=== PATIENT | female | born 1970 | race African-American/Black ===

== ENCOUNTER → 2017-01-07 | Outpatient (CLI) | payer MEDICARE, BC ==
[2016-02-02 14:10] VITALS: BP 102/65
[~2017-01-07] MED LIST: MIDO2.5T PO
--- NOTE | 2017-01-07 14:49 | RAD ---
Radionuclide parathyroid scan, 01/07/2017: History: Hyperparathyroidism Imaging of the neck was performed following IV injection of 25 mCi of technetium 99m sestamibi. Images were obtained at 30 minutes and 3 hours. No persistent abnormal accumulation of activity is seen in the lower neck to suggest a parathyroid adenoma. IMPRESSION: Negative radionuclide parathyroid scan.
== END | disposition home or self-care (01) ==
LOC: NM 09:14
PROVIDERS: ATTEND Internal Medicine Nephrology
DX: E21.2 Other hyperparathyroidism (principal)
CPT/HCPCS: 78070; 96374; A9500

== ENCOUNTER → 2018-03-10 | Outpatient (CLI) | payer MEDICARE, BC ==
[2016-02-02 14:10] VITALS: BP 102/65
--- NOTE | 2018-03-10 16:05 | RAD ---
Nuclear Medicine Parathyroid Scan: History: Hyperparathyroidism. Technique: 22 mCi Tc-99m sestamibi was administered intravenously and spot views were obtained on a gamma camera with early and delayed imaging. Comparison: 01/07/2017 Findings: There is expected physiologic uptake in the salivary glands and thyroid. There is normal washout of the thyroid. There is no abnormal extrathyroid activity seen. Impression: No evidence of abnormal radiotracer uptake to suggest parathyroid adenoma. Electronically signed by: Milton Blue MD (03/10/2018 4:02 PM) [id number]
== END | disposition home or self-care (01) ==
LOC: NM 10:59
PROVIDERS: ATTEND Surgery
DX: E21.3 Hyperparathyroidism, unspecified (principal)
CPT/HCPCS: 78070; 96374; A9500

== ENCOUNTER 2018-07-19 10:40 | Inpatient (IN) | payer MEDICARE ==
--- NOTE | 2018-07-18 19:45 | PDOC1 ---
History and Physical Date of Admission Date of Admission 07/19/2018 Identification/Chief Complaint Chief Complaint right lower extremity weakness Source Source: Chart review History of Present Illness History of Present Illness This 48-year-old woman injured her right knee when she slipped on the ice on . She is not sure how the leg twisted or the injury mechanism but she had immediate pain and weakness. She was seen at the emergency room at [place], and diagnosed with quadriceps tendon rupture. She has been in a knee immobilizer. She cannot extend the leg. Her significant medical history involves dialysis, end-stage renal disease of unknown etiology. She does not have diabetes. She had 2 years of dialysis starting in 2008, and underwent a kidney transplant in 2010, had rejection, and restarted dialysis in 2014. She dialyzes on Tuesdays, , and Saturdays. Past Medical History Cardiovascular: No pertinent hx Pulmonary: No pertinent hx GI: No pertinent hx Heme/Onc: Other Hepatobiliary: No pertinent hx Psych: No pertinent hx Rheumatologic: No pertinent hx Infectious disease: No pertinent hx Renal/: Chronic renal failure, Other Endocrine: No pertinent hx, Hyperparathyroidism Past Surgical History Past Surgical History: Other (renal transplant) Family History Family History: Hypertension Social History ALCOHOL: none Drugs: None Current Medications Current Medications Current Medications Prochlorperazine Edisylate (Compazine) 5 mg PACU PRN PRN IV NAUSEA, MRX1; Start 07/19/18 at 07:00; Stop 07/20/18 at 06:59 Hydromorphone HCl (Dilaudid) 0.5 mg PRN Q10MIN PRN IV SEV PAIN, Second choice; Start 07/19/18 at 07:00; Stop 07/20/18 at 06:59 Lidocaine HCl (Xylocaine-Mpf 1% 2ml Vial) 2 ml PRN 1X PRN ID IV START; Start at 07:00; Stop 07/20/18 at 06:59 Ringer's Solution 1,000 ml @ 30 mls/hr Q24H IV ; Start 07/19/18 at 07:00; Stop 07/19/18 at 18:59 Morphine Sulfate (Morphine Sulfate) 1 mg PRN Q10MIN PRN IV SEVERE PAIN; Start 07/19/18 at 07:00; Stop 07/20/18 at 06:59 Fentanyl Citrate (Fentanyl 2ml Vial) 50 mcg PRN Q5MIN PRN IV MODERATE TO SEVERE PAIN; Start 07/19/18 at 07:00; Stop 07/20/18 at 06:59 Fentanyl Citrate (Fentanyl 2ml Vial) 25 mcg PRN Q5MIN PRN IV MILD PAIN; Start 07/19/18 at 07:00; Stop 07/20/18 at 06:59 Ondansetron HCl (Zofran) 4 mg PRN Q6HRS PRN IV NAUSEA/VOMITING; Start 07/19/18 at 07:00; Stop 07/20/18 at 06:59 Cefazolin Sodium/ Dextrose 50 ml @ 100 mls/hr 1X PREOP PRN IV PRIOR TO PROCEDURE; Start 07/19/18 at 06:00; Stop 07/19/18 at 18:00 Active Scripts Active [Calcium Acetate] 667 MG Capsule 1,334 Mg PO TIDWMEALS 30 Days Reported Robina-Shea Rx Tablet (Vit B Cmplx 3/Fa/Vit C/Biotin) 1 Each Tablet 1 Each PO DAILY Vitamin D (Cholecalciferol (Vitamin D3)) 1,000 Unit Capsule 1 Cap PO DAILY Sensipar (Cinacalcet Hcl) 30 Mg Tablet 1 Tab PO DAILY [binders] Allergies Allergies: Coded Allergies: No Known Drug Allergies (Unverified , 07/18/18) Physical Exam General: Alert, Cooperative HEENT: Atraumatic Lungs: Normal air movement Heart: RRR Abdomen: Soft Extremities: No clubbing, No cyanosis, No edema, Normal pulses, Other (The right knee shows normal gross alignment, slight swelling at the distal quadriceps. Passive range of motion is present but active extension is absent. Light touch sensation intact. Stable to varus and valgus stress. She can actively flex the knee. Sensation and pulses intact. ) Skin: No rashes, No breakdown, No significant lesion Neuro: Normal speech, Sensation intact Psych/Mental Status: Mental status NL, Mood NL Images Images Report reviewed, images independently reviewed right lower extremity CT scan [facility] 07/13/[address] [address] IMAGING REPORT Signed PATIENT: MARIANN LONG ACCOUNT: [id number] : 1970 LOCATION: ER AGE: 48 SEX: F EXAM STATUS: REG ER ORD. PHYSICIAN: HIMA WALKER MD REASON: fall, abnormal x-ray PROCEDURE: CT LOWER EXTREMITY WO RIGHT CT study of the right knee without contrast Clinical indications: Right knee pain status post fall this a.m. Abnormal x-ray. COMPARISON: Radiographic study performed today. TECHNIQUE: Noncontrast helical CT scanning of the right knee was performed. Multiplanar 2-D reconstructions were generated. PQRS compliance Statement One or more of the following individualized dose reduction techniques were utilized for this study: 1. Automated exposure control 2. Adjustment of the mA and/or kV according to patient size 3. Use of iterative reconstruction technique FINDINGS: There is soft tissue thickening around the distal quadriceps tendon at the attachment to the superior pole of the patella. Calcifications are seen here within the distal quadriceps tendon. This may represent chronic calcific tendinitis of the quadriceps tendon. No avulsion fracture or adjacent superior pole patellar defect is evident. The tendon appears discontinuous at the attachment to the superior pole of the patella with an approximate gap of 9 mm. Portion of the tendon appears partially retracted. This is consistent with a full-thickness tear of the quadriceps tendon to the superior pole of the patella. The patellar tendon appears intact. No acute fracture is evident otherwise. No lytic process is seen. There is a small knee joint effusion. No radiopaque loose body is evident. No distended Waldrop's cyst is seen. IMPRESSION: No acute fracture. CT findings are highly suggestive of a full-thickness tear of the quadriceps tendon insertion to the superior pole of the patella with calcific quadriceps tendinitis. This may be confirmed with MRI imaging if clinically needed. Electronically signed by: Guillermina Conti MD (07/13/2018 12:28 PM) [id number] DICTATED AND SIGNED BY: GUILLERMINA CONTI MD DATE: 07/13/18 1213 CC: RAQUEL CRUZ MD; HIMA WALKER MD. VTE Prophylaxis Ordered VTE Prophylaxis Devices: Yes VTE Pharmacological Prophylaxi: Yes Assessment/Plan Assessment/Plan She has a high-grade quadriceps tendon rupture. I recommended surgical repair. We discussed the potential risks of re-tear, weakness, infection, blood clots, or other potential surgical or anesthetic complications. Her dialysis makes re- tear, or infection more likely and we discussed this. Despite the increased surgical risks, I do recommend repair, as nonoperative treatment would give permanent severe weakness. I may augment her repair with additional swivel locks into the tibia. REGAN ESPINOZA MD Jul 18, 2018 19:45
[2018-07-19] VITALS (7 sets, daily range): BP systolic 94–107; BP diastolic 60–81
[~2018-07-19] VITALS: Ht 175.3 cm; Wt 66.7 kg
[~2018-07-19 10:40] MED LIST changes: +BUPIVACAINE-EPI 0.25%-1:200000 MPF 30 ML VIAL. ONE; +CHOL100013 PO; +CINA30TA2 PO; +Calcium Acetate PO; +HYDROmorphone 2 MG/ML VIAL IV PRN; +IV RINGERS,LACTATED 1000ML 1,000 ML IV SCH; +LIDOCAINE 1% PF 2 ML VIAL. ID PRN; +ONDANSETRON PF 4 MG/2 ML VIAL. IV PRN; +VIT1TABL71 PO; +[UNRECOGNIZED DRUG - OTHER]; +fentaNYL PF VIAL 100 MCG/2 ML VIAL IV PRN
[2018-07-19] MEDS ORDERED: ONDANSETRON PF 4 MG/2 ML VIAL. ONE (11:41)
[2018-07-19] MEDS ORDERED: FAMOTIDINE 20 MG/2 ML VIAL ONE (11:41)
[2018-07-19] MEDS ORDERED: PROPOFOL 20 ML IV ONE (11:41)
[2018-07-19] MEDS ORDERED: LIDOCAINE 2% PF 5 ML VIAL. ONE (11:41)
[2018-07-19] MEDS ORDERED: DEXAMETHASONE SOD PHOS 20 MG/5 ML VIAL. ONE (11:41)
[2018-07-19] MEDS ORDERED: MIDAZOLAM HCL/PF 2 MG/2 ML VIAL. ONE (11:42)
[2018-07-19] MEDS ORDERED: fentaNYL PF VIAL 100 MCG/2 ML VIAL ONE (11:42)
[2018-07-19] MEDS ORDERED: IV NORMAL SALINE 1000ML BAG 1,000 ML IV SCH (11:45)
[2018-07-19 12:09] LABS: PREG TEST PT QUAL NEGATIVE (NEG)
[2018-07-19] MEDS ORDERED: fentaNYL PF VIAL 100 MCG/2 ML VIAL IV PRN (12:30)
[2018-07-19] MEDS ORDERED: ACETAMINOPHEN 325 MG TABLET. PO ONE (12:30)
[2018-07-19] MEDS ORDERED: GLYCOPYRROLATE 1 MG/5 ML VIAL. ONE (13:03)
[2018-07-19] MEDS ORDERED: SEVOFLURANE 31 TO 60 MINUTES. IH ONE (14:04)
[2018-07-19] MEDS ORDERED: MORPHINE SULFATE 4 MG/ML VIAL. ONE (14:22)
[2018-07-19] MEDS: PROCHLORPERAZINE 10 MG/2 ML VIAL. IV PRN ×2 (14:26→14:41)
--- NOTE | 2018-07-19 14:27 | PDOC4 ---
Operative Note Operative Note Date of Procedure: July 19, 2018 Pre-Op Diagnosis: Rupture of right quadriceps tendon, initial encounter - S76.111A Post-Op Diagnosis: same Procedure: right lower extremity suture of quadriceps muscle/tendon rupture primary, CPT 93275 Surgeon: Regan David MD Anesthesia: general EBL: 50 mL Specimens Obtained: none Complications: none Drains: none Tourniquet time: 18 minutes Tourniquet pressure: 300 mm Hg Findings: full thickness quadriceps tendon rupture with minimal retinacular tear Indications for Procedure: The patient is a 48 year old with knee injury and right quadriceps tendon rupture. The diagnosis was made clinically. I recommended suture repair of the quadriceps tendon. The patient and I discussed the potential risks of surgery such as repeat tear, stiffness, bleeding, infection, scarring, blood clots, or other potential surgical or anesthetic complications. All of the patients questions about surgery were answered and they desired to proceed. I discussed increased risk of surgical complications due to her dialysis and underlying renal failure but recommend surgery despite increased risks. Procedure in Detail: The patient was identified in the preoperative holding area. The correct right lower extremity was marked by me. The patient was taken to the operating room where there patient was anesthetized by the department of anesthesia. The patient was positioned supine on the operating table. A tourniquet was placed on the upper right thigh. Preoperative antibiotics were given intravenously. A timeout procedure was performed. The limb was prepared in sterile fashion with surgical prep solution. Sterile drapes were applied. An Esmarch bandage was used to exsanguinate the limb. The tourniquet was inflated. A midline skin incision was used. Sharp dissection was used and Bovie electrocautery was used as needed for hemostasis. The quadriceps tendon rupture was noted but only minimally retracted. Irrigation was used to clear hematoma from the knee joint. The superior pole of the patella was prepared with a rongeurs and curette, back to cancellous bone, for eventual secure bone repair with bone marrow elements. Two #5 FiberWire sutures were used, each in a Krakw fashion in the distal quadriceps tendon. One suture was placed medially with 2 tails, and one was placed laterally with 2 tails. The center most tail of each of the pair of sutures is placed in the midline of the quadriceps tendon. Three corresponding drill holes were then made in the patella at the previously prepared superior pole of the patella, within a few millimeters of the articular surface to prevent overload of the patellofemoral joint. As each drill bit was placed bicortically through the patella, the tip of the drill bit was localized near the distal pole using electrocautery. I placed a Hewson suture passer through each bone tunnel from distal to proximal through the patella for passing of the sutures from proximal to distal. All three bone tunnels were used, with the most medial suture tail through the medial drill tunnel, the most lateral suture tail through the most lateral drill tunnel, and the central pair of tails through the central bone tunnel. Irrigation was used to clear any bony fragments created by the drilling. I then held the patella reduced to the quadriceps tendon, and I tied the sutures. This allowed a secure tendon to bone repair of the distal quadriceps to the superior pole of the patella using #5 FiberWire tied around patella bone bridges. The retinaculum was also noted to be torn only for about 1 cm in each direction, and was repaired in a running fashion medially, and laterally, using #1 PDS suture. Secure repair was obtained. Preoperatively had considered augmenting the repair with additional #5 FiberWire and swivel lock anchors in the tibia, but due to the excellent primary repair and minimal extension into the retinaculum, I decided against the augmentation. Copious irrigation was used a final time. The tourniquet was released. Bovie electrocautery was used for hemostasis. 0.25% Marcaine with epinephrine was injected for hemostasis and pain relief. The subcutaneous tissue was closed with 2-0 PDS. [place] were placed in the skin. Needle and sponge counts were correct. There were no apparent complications. A sterile dressing and a knee immobilizer were placed. REGAN DAVID MD Jul 19, 2018 14:27
[2018-07-19] MEDS: fentaNYL PF VIAL 100 MCG/2 ML VIAL IV PRN ×5 (14:29→18:11)
[2018-07-19] MEDS: MORPHINE SULFATE 2 MG/ML VIAL. IV PRN ×3 (14:31→15:30)
[2018-07-19] MEDS ORDERED: IV 1/2 NORMAL SALINE 1,000 ML IV SCH (14:31)
[2018-07-19] MEDS ORDERED: DEXTROSE 50% 25 GM / 50ML DISP.SYRIN. IV PRN (14:45)
[2018-07-19] MEDS ORDERED: POLYETHYLENE GLYCOL 3350 17 GM PACKET. PO PRN (14:45)
[2018-07-19] MEDS ORDERED: MORPHINE SULFATE 4 MG/ML VIAL. IV PRN (14:45)
[2018-07-19] MEDS ORDERED: ONDANSETRON PF 4 MG/2 ML VIAL. IV PRN (14:45)
[2018-07-19] MEDS ORDERED: HYDROcodone/APAP 7.5/325MG 1 TAB TABLET PO PRN (14:45)
[2018-07-19] MEDS: HYDROcodone/APAP 7.5/325MG 1 TAB TABLET PO PRN ×2 (18:44→23:50)
[2018-07-19 20:07] LABS: CREATININE 6.8 mg/dL (0.6-1.0); GFR 7.8; POTASSIUM 4.2 mmol/L (3.5-5.1)
--- NOTE | 2018-07-19 23:30 | NUR ---
Assisted to [facility]. Transferred w/o difficulty-mostly just a pivot. Sleeps w/ loud snoring.
[2018-07-20 03:00] VITALS: BP 98/60
[2018-07-20] MEDS: oxyCODONE/APAP 5/325 1 TAB TABLET PO PRN ×3 (03:19→10:39)
[2018-07-20] MEDS ORDERED: MAGNESIUM HYDROXIDE 2,400 MG/30 ML ORAL.SUSP. PO PRN (06:00)
[2018-07-20 06:46] VITALS: BP 107/70
[2018-07-20] MEDS: SENNOSIDES/DOCUSATE 8.6/50MG TABLET. PO SCH (07:18)
[2018-07-20] MEDS: MORPHINE SULFATE 4 MG/ML VIAL. IV PRN ×2 (08:44→15:47)
[2018-07-20] MEDS: CHOLECALCIFEROL (VITAMIN D3) 1,000 UNIT TABLET PO SCH (08:45)
[2018-07-20] MEDS: CALCIUM ACETATE 667 MG CAPSULE PO SCH ×3 (08:45→16:58)
[2018-07-20] MEDS: CINACALCET HCL 30 MG TABLET PO SCH (08:45)
[2018-07-20] MEDS: FOLIC/VIT B COMP W-C (RENAL) TABLET. PO SCH (08:45)
[2018-07-20] MEDS: ASPIRIN 325 MG TABLET PO SCH (08:46)
[2018-07-20] MEDS ORDERED: ONDANSETRON ODT 4 MG TAB.RAPDIS. PO PRN (09:00)
[2018-07-20] MEDS: oxyCODONE IR 5 MG TABLET PO PRN (10:39)
--- NOTE | 2018-07-20 14:40 | NUR ---
Yamile is doing well. transfers self from bed to commode and ambulated to bathroom. still having problems with pain control. medicated with Percocet/Ana every 3-4 hrs with breakthrough morphine.
--- NOTE | 2018-07-20 14:58 | PDOC ---
PROGRESS NOTES Subjective Subjective Satisfactory pain control. Not yet independent in PT. Brace on order. Objective Vital Signs Vital Signs Date Time Temp Pulse Resp B/P (MAP) Pulse Ox O2 Delivery O2 Flow Rate FiO2 07/20/18 11:30 20 Room Air 07/20/18 06:46 98.3 71 107/70 (82) 97 98.3 07/19/18 14:43 10 Physical Exam Dressing dry. Calf soft and nontender. Good AROM of ankle. Labs Laboratory Tests Test 07/19/18 11:32 07/19/18 19:55 Serum Test, Qualitative Negative (NEG) Sodium Level 137 mmol/L (136-145) Potassium Level 4.2 mmol/L (3.5-5.1) Chloride Level 99 mmol/L (98-107) Carbon Dioxide Level 26 mmol/L (21-32) Anion Gap 12 (6-14) Blood Urea Nitrogen 27 mg/dL (7-20) Creatinine 6.8 mg/dL (0.6-1.0) Estimated GFR (Cockcroft-Gault) 7.8 Glucose Level 164 mg/dL (70-99) Calcium Level 9.0 mg/dL (8.5-10.1) Laboratory Tests Test 07/19/18 19:55 Sodium Level 137 mmol/L (136-145) Potassium Level 4.2 mmol/L (3.5-5.1) Chloride Level 99 mmol/L (98-107) Carbon Dioxide Level 26 mmol/L (21-32) Anion Gap 12 (6-14) Blood Urea Nitrogen 27 mg/dL (7-20) Creatinine 6.8 mg/dL (0.6-1.0) Estimated GFR (Cockcroft-Gault) 7.8 Glucose Level 164 mg/dL (70-99) Calcium Level 9.0 mg/dL (8.5-10.1) Assessment Assessment POD 1 after quad tendon repair Plan Plan of Care Continue PT, may WBAT with brace locked in full extension. Aspirin daily for DVT prophylaxis. Home tomorrow after dialysis if she has the brace and is mobile on walker or crutches. REGAN ESPINOZA MD Jul 20, 2018 14:58
[2018-07-20] MEDS ORDERED: BISACODYL 10 MG SUPP.RECT. PR PRN (16:00)
[2018-07-20 17:13] VITALS: BP 107/60
[2018-07-20] MEDS: fentaNYL PF VIAL 100 MCG/2 ML VIAL IV PRN (20:34)
[2018-07-21] MEDS: oxyCODONE/APAP 5/325 1 TAB TABLET PO PRN ×4 (01:18→12:19)
[2018-07-21 06:13] VITALS: BP 99/62
[2018-07-21 06:29] VITALS: BP 113/59
--- NOTE | 2018-07-21 06:30 | NUR ---
Correct VS charted in the 0629 column. Has loud snore when sleeping. Anticipates hemodialysis today then dismissal. Able to ambulate self w/ walker w/o difficulty.
[2018-07-21] MEDS: oxyCODONE IR 5 MG TABLET PO PRN (07:00)
[2018-07-21] MEDS ORDERED: IV NORMAL SALINE 1000ML BAG 1,000 ML IV PRN ×2 (07:17)
[2018-07-21] MEDS ORDERED: ACETAMINOPHEN 500 MG TABLET PO PRN (07:30)
[2018-07-21] MEDS ORDERED: ALBUMIN HUMAN 25% 200 ML IV PRN (07:30)
[2018-07-21] MEDS ORDERED: DIALYSIS PATIENT. MC PRN (07:30)
[2018-07-21] MEDS ORDERED: 0.9 % SODIUM CHLORIDE 10 ML DISP.SYRIN. IV PRN ×2 (07:30)
[2018-07-21] MEDS ORDERED: diphenhydrAMINE 50 MG/ML VIAL IV PRN ×2 (07:30)
[2018-07-21] MEDS: CALCIUM ACETATE 667 MG CAPSULE PO SCH ×2 (08:00→11:38)
--- NOTE | 2018-07-21 09:03 | NUR ---
Family member brought in walker from home. placed in room
--- NOTE | 2018-07-21 11:21 | PDOC2 ---
CONSULT Date of Consult Date of Consult DATE: 07/21/18 TIME: 11:15 Reason for Consult Reason for Consult: ESRD Referring Physician Referring Physician: OLGA Identification/Chief Complaint Chief Complaint RLE PAIN AFTER FALL Source Source: Chart review, Patient History of Present Illness Reason for Visit: THIS IS A VERY PLEASANT 48 YR OLD ESRD PT DUE TO HTN. SHE HAS OP HD ON TTS. SHE IS VERY COMPLIANT. SHE SLIPPED AND FELL IN THE ICE AND SUSTAINED A RIGHT QUADRICEPS TENDON RUPTURE. SHE HAS SINCE UNDERGONE REPAIR. LABS ARE C/W HER ESRD STATUS. SHE IS DUE TO FOR HD TODAY Past Medical History Cardiovascular: No pertinent hx Pulmonary: No pertinent hx GI: No pertinent hx Heme/Onc: Other Hepatobiliary: No pertinent hx Psych: No pertinent hx Rheumatologic: No pertinent hx Infectious disease: No pertinent hx Renal/: Chronic renal failure, Other Endocrine: No pertinent hx, Hyperparathyroidism Past Surgical History Past Surgical History: Other (renal transplant) Family History Family History: Hypertension Social History ALCOHOL: none Drugs: None Current Medications Current Medications Current Medications Prochlorperazine Edisylate (Compazine) 5 mg PACU PRN PRN IV NAUSEA, MRX1 Last administered on 07/19/18at 14:41; Start 07/19/18 at 07:00; Stop 07/20/18 at 06:59 ; Status DC Hydromorphone HCl (Dilaudid) 0.5 mg PRN Q10MIN PRN IV SEV PAIN, Second choice; Start 07/19/18 at 07:00; Stop 07/20/18 at 06:59; Status DC Lidocaine HCl (Xylocaine-Mpf 1% 2ml Vial) 2 ml PRN 1X PRN ID IV START; Start at 07:00; Stop 07/20/18 at 06:59; Status DC Ringer's Solution 1,000 ml @ 30 mls/hr Q24H IV ; Start 07/19/18 at 07:00; Stop 07/19/18 at 18:59; Status DC Morphine Sulfate (Morphine Sulfate) 1 mg PRN Q10MIN PRN IV SEVERE PAIN Last administered on 07/19/18at 15:30; Start 07/19/18 at 07:00; Stop 07/20/18 at 06:59 ; Status DC Fentanyl Citrate (Fentanyl 2ml Vial) 50 mcg PRN Q5MIN PRN IV MODERATE TO SEVERE PAIN Last administered on 07/19/18at 15:32; Start 07/19/18 at 07:00; Stop 07/20/18 at 06:59; Status DC Fentanyl Citrate (Fentanyl 2ml Vial) 25 mcg PRN Q5MIN PRN IV MILD PAIN; Start 07/19/18 at 07:00; Stop 07/20/18 at 06:59; Status DC Ondansetron HCl (Zofran) 4 mg PRN Q6HRS PRN IV NAUSEA/VOMITING; Start 07/19/18 at 07:00; Stop 07/20/18 at 06:59; Status DC Cefazolin Sodium/ Dextrose 50 ml @ 100 mls/hr 1X PREOP PRN IV PRIOR TO PROCEDURE Last administered on 07/19/18at 13:20; Start 07/19/18 at 06:00; Stop at 18:00; Status DC Bupivacaine HCl/ Epinephrine Bitart (Sensorcaine-Epi 0.25%-1:403260 Mpf) 30 ml STK-MED ONCE .ROUTE Last administered on 07/19/18at 13:56; Start 07/19/18 at 08: 36; Stop 07/19/18 at 08:37; Status DC Sodium Chloride 1,000 ml @ 0 mls/hr Q0M IV Last administered on 07/19/18at 11: 45; Start 07/19/18 at 11:45; Stop 07/20/18 at 01:24; Status DC Propofol 20 ml @ As Directed STK-MED ONCE IV ; Start 07/19/18 at 11:41; Stop at 11:42; Status DC Dexamethasone Sodium Phosphate (Decadron) 20 mg STK-MED ONCE .ROUTE ; Start at 11:41; Stop 07/19/18 at 11:42; Status DC Famotidine (Pepcid Vial) 20 mg STK-MED ONCE .ROUTE ; Start 07/19/18 at 11:41; Stop 07/19/18 at 11:42; Status DC Lidocaine HCl (Lidocaine Pf 2% Vial) 5 ml STK-MED ONCE .ROUTE ; Start 07/19/18 at 11:41; Stop 07/19/18 at 11:42; Status DC Ondansetron HCl (Zofran) 4 mg STK-MED ONCE .ROUTE ; Start 07/19/18 at 11:41; Stop 07/19/18 at 11:42; Status DC Fentanyl Citrate (Fentanyl 2ml Vial) 100 mcg STK-MED ONCE .ROUTE ; Start at 11:42; Stop 07/19/18 at 11:43; Status DC Midazolam HCl (Versed) 2 mg STK-MED ONCE .ROUTE ; Start 07/19/18 at 11:42; Stop 07/19/18 at 11:43; Status DC Acetaminophen (Tylenol) 650 mg 1X ONCE PO Last administered on 07/19/18at 12:37 ; Start 07/19/18 at 12:30; Stop 07/19/18 at 12:36; Status DC Fentanyl Citrate (Fentanyl 2ml Vial) 25 mcg PRN Q30MIN PRN IV MODERATE PAIN Last administered on 07/19/18at 12:40; Start 07/19/18 at 12:30; Stop 07/20/18 at 14:03; Status DC Ephedrine Sulfate (Akovaz) 50 mg STK-MED ONCE .ROUTE ; Start 07/19/18 at 13:01; Stop 07/19/18 at 13:02; Status DC Glycopyrrolate (Robinul) 1 mg STK-MED ONCE .ROUTE ; Start 07/19/18 at 13:03; Stop 07/19/18 at 13:04; Status DC Sevoflurane (Ultane) 30 ml STK-MED ONCE IH ; Start 07/19/18 at 14:04; Stop 07/19 at 14:05; Status DC Morphine Sulfate (Morphine Sulfate) 4 mg STK-MED ONCE .ROUTE ; Start 07/19/18 at 14:22; Stop 07/19/18 at 14:23; Status DC Oxycodone HCl (Roxicodone) 5 mg PRN Q3HRS PRN PO PAIN Last administered on 07/21at 07:00; Start 07/19/18 at 14:45 Morphine Sulfate (Morphine Sulfate) 2 mg PRN Q1HR PRN IV PAIN Last administered on 07/19/18at 19:23; Start 07/19/18 at 14:45 Fentanyl Citrate (Fentanyl 2ml Vial) 25 mcg PRN Q1HR PRN IV PAIN Last administered on 07/20/18at 20:34; Start 07/19/18 at 14:45 Senna/Docusate Sodium (Senna Plus) 1 tab DAILY PO ; Start 07/20/18 at 09:00 Polyethylene Glycol (miraLAX PACKET) 17 gm PRN DAILY PRN PO CONSTIPATION; Start 07/19/18 at 14:45 Sodium Chloride 1,000 ml @ 30 mls/hr Q24H IV ; Start 07/19/18 at 14:31; Stop at 01:24; Status DC Ondansetron HCl (Zofran) 4 mg PRN Q4HRS PRN IV NAUSEA/VOMITING; Start 07/19/18 at 14:45 Aspirin (Abdirahman Aspirin) 325 mg DAILYWBKFT PO Last administered on 07/20/18at 08: 46; Start 07/20/18 at 08:00 Magnesium Hydroxide (Milk Of Magnesia) 2,400 mg 1X PRN PRN PO CONSTIPATION; Start 07/20/18 at 06:00; Stop 07/21/18 at 05:59; Status DC Bisacodyl (Dulcolax Supp) 10 mg 1X PRN PRN SD CONSTIPATION; Start 07/20/18 at 16:00; Stop 07/21/18 at 15:59 Acetaminophen/ Hydrocodone Bitart (Lortab 7.5/325) 1 tab PRN Q4HRS PRN PO PAIN ; Start 07/19/18 at 14:45 Morphine Sulfate (Morphine Sulfate) 4 mg PRN Q2HR PRN IV PAIN Last administered on 07/20/18at 15:47; Start 07/19/18 at 14:45 Acetaminophen/ Hydrocodone Bitart (Lortab 7.5/325) 2 tab PRN Q4HRS PRN PO PAIN Last administered on 07/19/18at 23:50; Start 07/19/18 at 14:45 Dextrose (Dextrose 50%-Water Syringe) 12.5 gm PRN Q15MIN PRN IV SEE COMMENTS; Start 07/19/18 at 14:45 Oxycodone/ Acetaminophen (Percocet 5/325) 1 tab PRN Q4HRS PRN PO SEVERE PAIN Last administered on 07/21/18at 09:10; Start 07/19/18 at 14:45 Cinacalcet (Sensipar) 30 mg DAILY PO Last administered on 07/20/18at 08:45; Start 07/20/18 at 09:00 Vitamin D (Vitamin D3) 1,000 unit DAILY PO Last administered on 07/20/18at 08:45 ; Start 07/20/18 at 09:00 Vitamin B Complex/ Vitamin C (Robina-Shea) 1 tab DAILY PO Last administered on at 08:45; Start 07/20/18 at 09:00 Calcium Acetate (Phoslo) 1,334 mg TIDWMEALS PO Last administered on 07/20/18at 16:58; Start 07/20/18 at 08:00 Ondansetron HCl (Zofran Odt) 4 mg PRN Q6HRS PRN PO NAUSEA/VOMITING Last administered on 07/20/18at 09:26; Start 07/20/18 at 09:00 Sodium Chloride 1,000 ml @ 1,000 mls/hr Q1H PRN IV hypotension; Start 07/21/18 at 07:17; Stop 07/21/18 at 13:16 Albumin Human 200 ml @ 200 mls/hr 1X PRN PRN IV Hypotension; Start 07/21/18 at 07:30; Stop 07/21/18 at 13:29 Acetaminophen (Tylenol) 500 mg 1X PRN PRN PO MILD PAIN / TEMP; Start 07/21/18 at 07:30; Stop 07/22/18 at 07:29 Diphenhydramine HCl (Benadryl) 25 mg 1X PRN PRN IV ITCHING; Start 07/21/18 at 07:30; Stop 07/22/18 at 07:29 Diphenhydramine HCl (Benadryl) 25 mg 1X PRN PRN IV ITCHING; Start 07/21/18 at 07:30; Stop 07/22/18 at 07:29 Sodium Chloride (Normal Saline Flush) 10 ml 1X PRN PRN IV AP catheter pack; Start 07/21/18 at 07:30; Stop 07/22/18 at 07:29 Sodium Chloride (Normal Saline Flush) 10 ml 1X PRN PRN IV INTERNIST catheter pack; Start 07/21/18 at 07:30; Stop 07/22/18 at 07:29 Sodium Chloride 1,000 ml @ 400 mls/hr Q2H30M PRN IV PATENCY; Start 07/21/18 at 07:17; Stop 07/21/18 at 19:16 Info (PHARMACY MONITORING -- do not chart) 1 each PRN DAILY PRN MC SEE COMMENTS ; Start 07/21/18 at 07:30 Active Scripts Active [Calcium Acetate] 667 MG Capsule 1,334 Mg PO TIDWMEALS 30 Days Reported Robina-Shea Rx Tablet (Vit B Cmplx 3/Fa/Vit C/Biotin) 1 Each Tablet 1 Each PO DAILY Vitamin D (Cholecalciferol (Vitamin D3)) 1,000 Unit Capsule 1 Cap PO DAILY Sensipar (Cinacalcet Hcl) 30 Mg Tablet 1 Tab PO DAILY Allergies Allergies: Coded Allergies: No Known Drug Allergies (Unverified , 07/19/18) ROS Review of System FULL ROS NEG EXCEPT FOR HER RLE PAIN Physical Exam General: Alert, Oriented X3, Cooperative, No acute distress HEENT: Atraumatic, PERRLA, Mucous membr. moist/pink Lungs: Clear to auscultation, Normal air movement Heart: Regular rate, Normal S1, Normal S2 Abdomen: Normal bowel sounds, Soft, No tenderness Extremities: No clubbing Skin: No breakdown Neuro: Normal speech, Sensation intact Psych/Mental Status: Mental status NL, Mood NL MUSCULOSKELETAL: No joint tenderness, No deformity, No swelling Vitals VITALS Vital Signs Date Time Temp Pulse Resp B/P (MAP) Pulse Ox O2 Delivery O2 Flow Rate FiO2 07/21/18 07:56 Room Air 07/21/18 06:29 98.0 70 20 113/59 (77) 96 98.0 Labs Labs Laboratory Tests Test 07/19/18 11:32 07/19/18 19:55 Serum Test, Qualitative Negative (NEG) Sodium Level 137 mmol/L (136-145) Potassium Level 4.2 mmol/L (3.5-5.1) Chloride Level 99 mmol/L (98-107) Carbon Dioxide Level 26 mmol/L (21-32) Anion Gap 12 (6-14) Blood Urea Nitrogen 27 mg/dL (7-20) Creatinine 6.8 mg/dL (0.6-1.0) Estimated GFR (Cockcroft-Gault) 7.8 Glucose Level 164 mg/dL (70-99) Calcium Level 9.0 mg/dL (8.5-10.1) Assessment/Plan Assessment/Plan IMP ESRD ANEMIA HTN R QUAD TENDON TEAR PLAN HD TODAY UF TO DW THERAPY-S/P TENDON REPAIR MARLON HAMLIN MD Jul 21, 2018 11:21
[2018-07-21 11:33] VITALS: BP 94/63
[2018-07-21] MEDS: CHOLECALCIFEROL (VITAMIN D3) 1,000 UNIT TABLET PO SCH (11:38)
[2018-07-21] MEDS: SENNOSIDES/DOCUSATE 8.6/50MG TABLET. PO SCH (11:38)
[2018-07-21] MEDS: FOLIC/VIT B COMP W-C (RENAL) TABLET. PO SCH (11:38)
[2018-07-21] MEDS: CINACALCET HCL 30 MG TABLET PO SCH (11:38)
[2018-07-21] MEDS: ASPIRIN 325 MG TABLET PO SCH (11:38)
--- NOTE | 2018-07-21 12:13 | PDOC ---
PROGRESS NOTES Subjective Subjective dialysis complete. some knee pain. would like to do one more PT session before discharge Objective Vital Signs Vital Signs Date Time Temp Pulse Resp B/P (MAP) Pulse Ox O2 Delivery O2 Flow Rate FiO2 07/21/18 11:33 98.0 63 16 94/63 (73) Room Air 98.0 07/21/18 06:29 96 07/19/18 14:43 10 Physical Exam Knee immobilizer intact. Dressing dry. calf soft NT. Labs Laboratory Tests Test 07/19/18 19:55 Sodium Level 137 mmol/L (136-145) Potassium Level 4.2 mmol/L (3.5-5.1) Chloride Level 99 mmol/L (98-107) Carbon Dioxide Level 26 mmol/L (21-32) Anion Gap 12 (6-14) Blood Urea Nitrogen 27 mg/dL (7-20) Creatinine 6.8 mg/dL (0.6-1.0) Estimated GFR (Cockcroft-Gault) 7.8 Glucose Level 164 mg/dL (70-99) Calcium Level 9.0 mg/dL (8.5-10.1) Assessment Assessment pod 2 after quad tendon repair ESRD Plan Plan of Care Continue knee brace Home today REGAN ESPINOZA MD Jul 21, 2018 12:13
[2018-07-21] MEDS ORDERED: OXYC1TAB22 PO (12:18)
[2018-07-21] MEDS ORDERED: ASPI325T8 PO (12:18)
--- NOTE | 2018-07-21 12:22 | PDOC3 ---
Discharge Summary Visit Information Date of Admission: Jul 19, 2018 Date of Discharge: Jul 21, 2018 Admitting Diagnosis: quad tendon strain right Final Diagnosis Problems Medical Problems: (1) Strain of right quadriceps muscle, fascia and tendon, initial encounter Status: Acute Brief Hospital Course Allergies Allergies Coded Allergies Type Severity Reaction Last Updated Verified No Known Drug Allergies 07/19/18 No Vital Signs Vital Signs Date Time Temp Pulse Resp B/P (MAP) Pulse Ox O2 Delivery O2 Flow Rate FiO2 07/21/18 11:33 98.0 63 16 94/63 (73) Room Air 98.0 07/21/18 06:29 96 07/19/18 14:43 10 Lab Results Laboratory Tests Test 07/19/18 19:55 Sodium Level 137 mmol/L (136-145) Potassium Level 4.2 mmol/L (3.5-5.1) Chloride Level 99 mmol/L (98-107) Carbon Dioxide Level 26 mmol/L (21-32) Anion Gap 12 (6-14) Blood Urea Nitrogen 27 mg/dL (7-20) Creatinine 6.8 mg/dL (0.6-1.0) Estimated GFR (Cockcroft-Gault) 7.8 Glucose Level 164 mg/dL (70-99) Calcium Level 9.0 mg/dL (8.5-10.1) Brief Hospital Course 48 year old admitted for quad tendon rupture. Surgery the day of admission under [place]. Has ESRD and did dialysis on POD 2. Perioperative antibiotics, DVT prophylaxis and physical therapy. Stable for discharge. Discharge Information Condition at Discharge: Stable Follow Up: Weeks Disposition/Orders: D/C to Home Scheduled Aspirin (Aspirin), 325 MG PO DAILY Cholecalciferol (Vitamin D3) (Vitamin D), 1 CAP PO DAILY, (Reported) Cinacalcet Hcl (Sensipar), 1 TAB PO DAILY, (Reported) Vit B Cmplx 3/Fa/Vit C/Biotin (Robina-Shea Rx Tablet), 1 EACH PO DAILY, (Reported) [Calcium Acetate], 1,334 MG PO TIDWMEALS Scheduled PRN Oxycodone/Apap 10-325 (Percocet 10-325 Mg Tablet ), 1-2 TAB PO PRN Q4HRS PRN for PAIN Patient Instructions Patient Instructions Patient Instructions Continue to WBAT with walker. Keep dressing dry and intact. Continue DVT prophylaxis with aspirin for 30 days. REGAN ESPINOZA MD Jul 21, 2018 12:22
--- NOTE | 2018-07-21 13:11 | NUR ---
Discharge information given to both pt/family member, see instruction sheet for details, copy of [facility] pamphlet given along with ice pack for home use
--- NOTE | 2018-07-21 15:30 | NUR ---
Discharged to w/c accompanied by family member, belongings taken with her.
[2018-07-29] MEDS ORDERED: LEVO500T59 PO (10:23)
[2018-07-29] MEDS ORDERED: TRAM50TA PO (10:23)
== END 2018-07-21 15:32 | disposition home or self-care (01) | DRG 500 ==
LOC: SURG 10:40 → 4 SOUTHEST 15:29
PROVIDERS: ADMIT Orthopaedic Surgery; ATTEND Orthopaedic Surgery
PROC: 0LQL0ZZ Repair Right Upper Leg Tendon, Open Approach (ICD-10-PCS; principal; 2018-07-19 11:30)
PROC: 5A1D70Z Performance of Urinary Filtration, Intermittent, Less than 6 Hours Per Day (ICD-10-PCS; 2018-07-21)
DX: S76.111A Strain of right quadriceps muscle, fascia and tendon, initial encounter (principal); N18.6 End stage renal disease; Z94.0 Kidney transplant status; I12.0 Hypertensive chronic kidney disease with stage 5 chronic kidney disease or end stage renal disease; D64.9 Anemia, unspecified; W00.2XXA Other fall from one level to another due to ice and snow, initial encounter; Z99.2 Dependence on renal dialysis; Y93.89 Activity, other specified; Y92.89 Other specified places as the place of occurrence of the external cause; Y99.8 Other external cause status; Z82.49 Family history of ischemic heart disease and other diseases of the circulatory system
CPT/HCPCS: 36415; 80048; 84703; A7015; J0696; J0780; J1100; J2001; J2250; J2270; J2405; J2704; J3010; J3490; Q0162; 97116; 97150; 97530

== ENCOUNTER 2018-07-27 15:57 | Inpatient (IN) | payer MEDICARE ==
[~2018-07-27] VITALS: Ht 175.3 cm; Wt 69.2 kg
[~2018-07-27 15:57] MED LIST changes: +ASPI325T8 PO; -BUPIVACAINE-EPI 0.25%-1:200000 MPF 30 ML VIAL. ONE; -HYDROmorphone 2 MG/ML VIAL IV PRN; -IV RINGERS,LACTATED 1000ML 1,000 ML IV SCH; -LIDOCAINE 1% PF 2 ML VIAL. ID PRN; -ONDANSETRON PF 4 MG/2 ML VIAL. IV PRN; +OXYC1TAB22 PO; -fentaNYL PF VIAL 100 MCG/2 ML VIAL IV PRN
--- NOTE | 2018-07-27 16:42 | PHYS DOC ---
Past Medical History Past Medical History: Anxiety, Hypertension, Renal Failure, Other Additional Past Medical Histor: PERITONEAL DIALYSIS until 2017 currently Hemodialysis on , , Wed Past Surgical History: Other Additional Past Surgical Histo: Peritoneal dialysis catheter, right chest hemodialysis catheter Alcohol Use: None Drug Use: None Adult General Chief Complaint Chief Complaint: POST-OP PROBLEM HPI HPI Patient is a 48 year old AA female who presents to the ER with complaints of increased swelling and warmth to right leg, shortness of breath, and rapid heart beat x2 days. She states she had a torn ligament in her R knee repaired here by Dr. David on 07/19/18. She went to her PCP Dr. Cruz earlier today who sent her to the ER. Pt denies any body aches, chills, or cough. She reports that she feels fatigued all over. Currently, she rates the pain in her right knee a 5/10, the pain increases with movement or palpation. She has been taking the pain medication as prescribed and states it has helped with the pain. Pt states she has been ambulatory at home with a walker. Review of Systems Review of Systems Constitutional: Denies fever or chills [] Eyes: Denies change in visual acuity, redness, or eye pain [] HENT: Denies nasal congestion or sore throat [] Respiratory: Denies cough , see HPI Cardiovascular: No additional information not addressed in HPI [] GI: Denies abdominal pain, nausea, vomiting, or diarrhea [] : reports dialysis patient last HD was yesterday Musculoskeletal: See HPI Integument: See HPI Neurologic: Denies headache, focal weakness or sensory changes [] Complete systems were reviewed and found to be within normal limits, except as documented in this note. Current Medications Current Medications Current Medications Medications (Trade) Dose Ordered Sig/Tacos Start Time Stop Time Status Last Admin Dose Admin Heparin Sodium (Porcine) (Heparin Sodium) 1,150 unit PRN Q6HRS PRN 07/27/18 19:15 07/27/18 22:12 DC Heparin Sodium/ Dextrose 500 ml @ 24.6 mls/hr CONT PRN 07/27/18 19:15 07/27/18 22:12 DC 07/27/18 19:43 24.6 MLS/HR Morphine Sulfate (Morphine Sulfate) 4 mg 1X ONCE 07/27/18 18:45 07/27/18 21:05 DC Ondansetron HCl (Zofran) 4 mg 1X ONCE 07/27/18 18:45 07/27/18 18:46 DC 07/27/18 18:46 4 MG Allergies Allergies Allergies Coded Allergies Type Severity Reaction Last Updated Verified No Known Drug Allergies 07/19/18 No Physical Exam Physical Exam Constitutional: Well developed, well nourished, no acute distress, non-toxic appearance. [] HENT: Normocephalic, atraumatic, bilateral external ears normal, nose normal. [ ] Eyes: conjunctiva normal, no discharge. [] Neck: Normal range of motion, no stridor. [] Cardiovascular:Heart rate tachycardic rhythm, no murmur [] Lungs & Thorax: Bilateral breath sounds clear to auscultation [] Skin: Warm, dry, no erythema, no rash; surgical incision with dressing intact noted to right knee, mild erythema and warm to touch, no purulent drainage noted. [] Extremities: No cyanosis, no clubbing; limited ROM of R knee due to post-op status, 2+ edema noted to RLE, pedal pulses 2+ RLE, cap refill < 2 seconds Neurologic: Alert and oriented X 3, normal motor function, normal sensory function, no focal deficits noted. [] Psychologic: Affect normal, judgement normal, mood normal. [] Current Patient Data Vital Signs Vital Signs Date Time Temp Pulse Resp B/P (MAP) Pulse Ox O2 Delivery O2 Flow Rate FiO2 07/27/18 19:15 114 20 115/76 (89) 97 Room Air 07/27/18 18:51 98.8 98.8 Lab Values Laboratory Tests Test 07/27/18 16:55 White Blood Count 8.4 x10^3/uL (4.0-11.0) Red Blood Count 3.05 x10^6/uL (3.50-5.40) L Hemoglobin 9.5 g/dL (12.0-15.5) L Hematocrit 29.6 % (36.0-47.0) L Mean Corpuscular Volume 97 fL (79-100) Mean Corpuscular Hemoglobin 31 pg (25-35) Mean Corpuscular Hemoglobin Concent 32 g/dL (31-37) Red Cell Distribution Width 16.0 % (11.5-14.5) H Platelet Count 259 x10^3/uL (140-400) Neutrophils (%) (Auto) 71 % (31-73) Lymphocytes (%) (Auto) 14 % (24-48) L Monocytes (%) (Auto) 9 % (0-9) Eosinophils (%) (Auto) 6 % (0-3) H Basophils (%) (Auto) 1 % (0-3) Neutrophils # (Auto) 5.9 x10^3uL (1.8-7.7) Lymphocytes # (Auto) 1.2 x10^3/uL (1.0-4.8) Monocytes # (Auto) 0.7 x10^3/uL (0.0-1.1) Eosinophils # (Auto) 0.5 x10^3/uL (0.0-0.7) Basophils # (Auto) 0.1 x10^3/uL (0.0-0.2) Prothrombin Time 15.2 SEC (11.7-14.0) H Prothrombin Time INR 1.2 (0.8-1.1) H D-Dimer (Darya) 5.04 ug/mlFEU (0.00-0.50) H Sodium Level 134 mmol/L (136-145) L Potassium Level 4.8 mmol/L (3.5-5.1) Chloride Level 94 mmol/L (98-107) L Carbon Dioxide Level 25 mmol/L (21-32) Anion Gap 15 (6-14) H Blood Urea Nitrogen 70 mg/dL (7-20) H Creatinine 12.1 mg/dL (0.6-1.0) H Estimated GFR (Cockcroft-Gault) 4.0 BUN/Creatinine Ratio 6 (6-20) Glucose Level 101 mg/dL (70-99) H Lactic Acid Level 1.5 mmol/L (0.4-2.0) Calcium Level 8.9 mg/dL (8.5-10.1) Total Bilirubin 0.4 mg/dL (0.2-1.0) Aspartate Amino Transferase (AST) 21 U/L (15-37) Alanine Aminotransferase (ALT) 9 U/L (14-59) L Alkaline Phosphatase 364 U/L (46-116) H Troponin I Quantitative < 0.017 ng/mL (0.000-0.055) Total Protein 8.5 g/dL (6.4-8.2) H Albumin 2.8 g/dL (3.4-5.0) L Albumin/Globulin Ratio 0.5 (1.0-1.7) L Serum Test, Qualitative Negative (NEG) Laboratory Tests 07/27/18 16:55 Laboratory Tests 07/27/18 16:55 EKG EKG 1619- sinus tach rate 121, NO STEMI, read by Dr. Grey at 1621 Radiology/Procedures Radiology/Procedures PROCEDURE: PORTABLE CHEST 1V EXAM: Chest, single view. HISTORY: Shortness of air. COMPARISON: 04/03/2009. FINDINGS: There is linear atelectasis or scarring within the right mid thorax. There is bilateral basilar atelectasis or interstitial infiltrate with suspected small pleural effusions. There is a prominent cardiac silhouette. There is a dialysis catheter with the tip in the superior right atrium. There is no pneumothorax. There is a left upper stent. IMPRESSION: 1. Bilateral lower lobe atelectasis or interstitial infiltrate with suspected small pleural effusions. 2. Suspected linear atelectasis or scarring within the right mid thorax. 3. Prominent cardiac silhouette, a component of which is due to portable technique. [] PROCEDURE: VENOUS LOWER EXTREMITY RIGHT Right lower extremity venous ultrasound, 07/27/2018 : History: Right leg pain and swelling Duplex evaluation including grayscale, color flow and spectral Doppler analysis was performed. The femoral and popliteal veins show no filling defects to suggest DVT. The visualized deep veins in the right calf are unremarkable. IMPRESSION: There is no sonographic evidence of deep vein thrombosis in the right lower extremity PROCEDURE: LUNG VENT/PERFUSION SCAN(VQ) Ventilation perfusion exam History: Shortness of breath for 2 days, recent knee surgery Comparison: Chest radiograph the same day Findings: Ventilation perfusion examination was performed. Ventilation images were acquired after the patient inhaled 18 mCi of xenon-133 gas. Perfusion images were acquired after the patient was injected with 5 mCi of technetium 99m MAA. No mismatched perfusion defect is identified. Impression: 1. There is low probability for pulmonary embolic disease. Course & Med Decision Making Course & Med Decision Making Pertinent Labs and Imaging studies reviewed. (See chart for details) Dx: tachycardia, shortness of breath 1927- Ordered heparin bolus and drip for suspected PE, d-dimer was 5.04. CXR concerning for infiltrate and atelectasis, however, pt denies cough, fever, or cold sx. Elevated D-dimer need to rule out PE. Admitted to [facility] by Dr. Thornton, notified Dr. Jackson that VQ scan is pending and orders. [] Dragon Disclaimer Dragon Disclaimer This electronic medical record was generated, in whole or in part, using a voice recognition dictation system. Departure Departure Impression: Primary Impression: Tachycardia Additional Impression: Shortness of breath Disposition: ADMITTED INPATIENT Admitting Physician: Other (rafael) Condition: STABLE Referrals: RAQUEL CRUZ MD (PCP) Problem Qualifiers BO ESPINOZA APRN Jul 27, 2018 16:42
--- NOTE | 2018-07-27 16:56 | RAD ---
Right lower extremity venous ultrasound, 07/27/2018 : History: Right leg pain and swelling Duplex evaluation including grayscale, color flow and spectral Doppler analysis was performed. The femoral and popliteal veins show no filling defects to suggest DVT. The visualized deep veins in the right calf are unremarkable. IMPRESSION: There is no sonographic evidence of deep vein thrombosis in the right lower extremity Electronically signed by: Ruel Martinez MD (07/27/2018 4:53 PM) [facility]
--- NOTE | 2018-07-27 16:59 | RAD ---
EXAM: Chest, single view. HISTORY: Shortness of air. COMPARISON: 04/03/2009. FINDINGS: There is linear atelectasis or scarring within the right mid thorax. There is bilateral basilar atelectasis or interstitial infiltrate with suspected small pleural effusions. There is a prominent cardiac silhouette. There is a dialysis catheter with the tip in the superior right atrium. There is no pneumothorax. There is a left upper stent. IMPRESSION: 1. Bilateral lower lobe atelectasis or interstitial infiltrate with suspected small pleural effusions. 2. Suspected linear atelectasis or scarring within the right mid thorax. 3. Prominent cardiac silhouette, a component of which is due to portable technique. Electronically signed by: Vivian Craig MD (07/27/2018 4:56 PM) [email or web address]
[2018-07-27 17:14] LABS: BASO # 0.1 x10^3/uL (0.0-0.2); BASO % 1 % (0-3); EOS # 0.5 x10^3/uL (0.0-0.7); EOS % 6 % (0-3); HEMATOCRIT 29.6 % (36.0-47.0); HEMOGLOBIN 9.5 g/dL (12.0-15.5); LYMPH # 1.2 x10^3/uL (1.0-4.8); LYMPH % 14 % (24-48); MEAN CORPUSCULAR HEMOGLOBIN 31 pg (25-35); MEAN CORPUSCULAR HGB CONC 32 g/dL (31-37); MEAN CORPUSCULAR VOLUME 97 fL (79-100); MONO # 0.7 x10^3/uL (0.0-1.1); MONO % 9 % (0-9); NEUT # 5.9 x10^3uL (1.8-7.7); NEUT % 71 % (31-73); PLATELET COUNT 259 x10^3/uL (140-400); RED BLOOD COUNT 3.05 x10^6/uL (3.50-5.40); WHITE BLOOD COUNT 8.4 x10^3/uL (4.0-11.0)
[2018-07-27 17:21] LABS: CALCIUM 8.9 mg/dL (8.5-10.1); CREATININE 12.1 mg/dL (0.6-1.0); POTASSIUM 4.8 mmol/L (3.5-5.1)
[2018-07-27 17:27] LABS: ALBUMIN 2.8 g/dL (3.4-5.0); ALBUMIN/GLOBULIN RATIO 0.5 (1.0-1.7); TOTAL BILIRUBIN 0.4 mg/dL (0.2-1.0); TOTAL PROTEIN 8.5 g/dL (6.4-8.2)
[2018-07-27 17:31] LABS: PREG TEST PT QUAL NEGATIVE (NEG)
[2018-07-27 17:51] LABS: PROTHROMBIN TIME PATIENT 15.2 SEC (11.7-14.0)
[2018-07-27] MEDS ORDERED: MORPHINE SULFATE 4 MG/ML VIAL. IV ONE ×2 (18:15→18:45)
[2018-07-27 18:37] LABS: D-DIMER 5.04 ug/mlFEU (0.00-0.50)
[2018-07-27] MEDS ORDERED: ONDANSETRON PF 4 MG/2 ML VIAL. IV ONE (18:45)
[2018-07-27] MEDS ORDERED: HEPARIN for IV BOLUS 10,000 UNIT/10 ML VIAL. IV ONE (19:15)
[2018-07-27] MEDS ORDERED: HEPARIN for IV BOLUS 10,000 UNIT/10 ML VIAL. IV PRN ×2 (19:15)
[2018-07-27] MEDS ORDERED: HEPARIN 25,000UTS/500ML PREMIX 500 ML IV PRN (19:15)
[2018-07-27 20:57] VITALS: BP 118/77
--- NOTE | 2018-07-27 21:06 | PDOC1 ---
History and Physical Date of Admission Date of Admission DATE: 07/27/18 TIME: 21:05 Identification/Chief Complaint Chief Complaint Shortness of breath Source Source: Chart review, Patient History of Present Illness History of Present Illness Ms Desai is a 48 year old AA female w/ PMHx ESRD (previously failed renal transplant 2010, then on PD in 2016, now on HD with 4 failed grafts in bilateral UE) who presents to ED with complaints of increased swelling and warmth to right leg, shortness of breath, and rapid heart beat x2 days. She also notes left axillary chest pain and tightness on deep inspiration. She states she had a torn ligament in her R knee repaired here by Dr. David on . She went to her PCP Dr. Sinha earlier today who sent her to the ER. Pt denies any body aches, chills, or cough. She reports that she feels fatigued all over. Currently, she rates the pain in her right knee a 5/10, the pain increases with movement or palpation. She has been taking the pain medication as prescribed and states it has helped with the pain. Pt states she has been ambulatory at home with a walker. She also denies any fever. She is very pleasant. Does not smoke, drink or use recreational drugs. No recent sick contacts, regularly follows up with Dr. Mary from nephrology. She was started on heparin GTT for presumptive PE, unable to do CTPA due to no good IV access and hospital protocol prohibiting use of her dialysis catheter, so underwent VQ scan which was low probability with no mismatch Past Medical History Cardiovascular: No pertinent hx Pulmonary: No pertinent hx GI: No pertinent hx Heme/Onc: Other Hepatobiliary: No pertinent hx Psych: No pertinent hx Rheumatologic: No pertinent hx Infectious disease: No pertinent hx Renal/: Chronic renal failure, Other Endocrine: No pertinent hx, Hyperparathyroidism Past Surgical History Past Surgical History: Other Family History Family History: Hypertension Social History ALCOHOL: none Drugs: None Current Medications Current Medications Current Medications Morphine Sulfate (Morphine Sulfate) 4 mg 1X ONCE IV Last administered on at 18:46; Start 07/27/18 at 18:15; Stop 07/27/18 at 18:17; Status DC Morphine Sulfate (Morphine Sulfate) 4 mg 1X ONCE IV ; Start 07/27/18 at 18:45; Stop 07/27/18 at 18:46; Status DC Ondansetron HCl (Zofran) 4 mg 1X ONCE IV Last administered on 07/27/18at 18:46; Start 07/27/18 at 18:45; Stop 07/27/18 at 18:46; Status DC Heparin Sodium (Porcine) (Heparin Sodium) 6,200 unit 1X ONCE IV Last administered on 07/27/18at 19:44; Start 07/27/18 at 19:15; Stop 07/27/18 at 19:20; Status DC Heparin Sodium/ Dextrose 500 ml @ 24.6 mls/hr CONT PRN IV SEE I/O RECORD Last administered on 07/27/18at 19:43; Start 07/27/18 at 19:15 Heparin Sodium (Porcine) (Heparin Sodium) 2,300 unit PRN Q6HRS PRN IV FOR UFH LEVEL LESS THAN 0.2; Start 07/27/18 at 19:15 Heparin Sodium (Porcine) (Heparin Sodium) 1,150 unit PRN Q6HRS PRN IV FOR UFH LEVEL 0.2 - 0.29; Start 07/27/18 at 19:15 Active Scripts Active Percocet 10-325 Mg Tablet (Oxycodone/Acetaminophen) 1 Each Tablet 1-2 Tab PO PRN Q4HRS PRN 14 Days Aspirin 325 Mg Tablet 325 Mg PO DAILY MDD 325 mg Take on aspirin 325 mg daily for 30 days [Calcium Acetate] 667 MG Capsule 1,334 Mg PO TIDWMEALS 30 Days Reported [facility] Rx Tablet (Vit B Cmplx 3/Fa/Vit C/Biotin) 1 Each Tablet 1 Each PO DAILY Vitamin D (Cholecalciferol (Vitamin D3)) 1,000 Unit Capsule 1 Cap PO DAILY Sensipar (Cinacalcet Hcl) 30 Mg Tablet 1 Tab PO DAILY Allergies Allergies: Coded Allergies: No Known Drug Allergies (Unverified , 07/19/18) ROS General: YES: Fatigue, Malaise; No: Chills, Night Sweats, Appetite, Other PSYCHOLOGICAL ROS: YES: Anxiety; No: Behavioral Disorder, Concentration difficultie, Decreased libido, Depression, Disorientation, Hallucinations, Hostility, Irritablity, Memory difficulties, Mood Swings, Obsessive thoughts, Physical abuse, Sexual abuse, Sleep disturbances, Suicidal ideation, Other Eyes: No Blurry vision, No Decreased vision, No Double vision, No Dry eyes, No Excessive tearing, No Eye Pain, No Itchy Eyes, No Loss of vision, No Photophobia , No Scotomata, No Uses contacts, No Uses glasses, No Other HEENT: No: Heacaches, Visual Changes, Hearing change, Nasal congestion, Nasal discharge, Oral lesions, Sinus pain, Sore Throat, Epistaxis, Sneezing, Snoring, Tinnitus, Vertigo, Vocal changes, Other ALLERGY AND IMMUNOLOGY: No: Hives, Insect Bite Sensitivity, Itchy/Watery Eyes, Nasal Congestion, Post Nasal Drip, Seasonal Allergies, Other Hematological and Lymphatic: No: Bleeding Problems, Blood Clots, Blood Transfusions, Brusing, Night Sweats, Pallor, Swollen Lymph Nodes, Other ENDOCRINE: No: Breast Changes, Galactorrhea, Hair Pattern Changes, Hot Flashes , Malaise/lethargy, Mood Swings, Palpitations, Polydipsia/polyuria, Skin Changes , Temperature Intolerance, Unexpected Weight Changes, Other Breast: No New/Changing Breast Lumps, No Nipple changes, No Nipple discharge, No Other Respiratory: YES: Cough, Pleuritic Pain, Shortness of breath, Tachypnea; No: Hemoptysis, Orthopnea, SOB with excertion, Sputum Changes, Stridor, Wheezing, Other Cardiovascular: yes Chest Pain; No Palpitations, No Orthopnea, No Paroxysmal Noc. Dyspnea, No Edema, No Lt Headedness, No Other Gastrointestinal: No Nausea, No Vomiting, No Abdominal Pain, No Diarrhea, No Constipation, No Melena, No Hematochezia, No Other Genitourinary: No Dysuria, No Frequency, No Incontinence, No Hematuria, No Retention, No Discharge, No Urgency, No Pain, No Flank Pain, No Other, No , No , No , No , No , No , No Musculoskeletal: Yes Gait Disturbance; No Joint Pain, No Joint Stiffness, No Joint Swelling, No Muscle Pain, No Muscular Weakness, No Pain In:, No Swelling In:, No Other Neurological: No Behavorial Changes, No Bowel/Bladder ControlChng, No Confusion , No Dizziness, No Gait Disturbance, No Headaches, No Impaired Coord/balance, No Memory Loss, No Numbness/Tingling, No Seizures, No Speech Problems, No Tremors, No Visual Changes, No Weakness, No Other Skin: No Dry Skin, No Eczema, No Hair Changes, No Lumps, No Mole Changes, No Mottling, No Nail Changes, No Pruritus, No Rash, No Skin Lesion Changes, No Other, No Acne Physical Exam General: Alert, Oriented X3, Cooperative, No acute distress HEENT: PERRLA Lungs: Other (Bibasilar crackles) Heart: S1S2, RRR, no gallops, no murmurs Abdomen: Normal bowel sounds, Soft, No tenderness, No hepatosplenomegaly, No masses Rectal Exam: not examined Extremities: No clubbing, No cyanosis, No edema, Normal pulses, Other (Right knee swelling, good pulses) Skin: Other (Right chest wall HD catheter clean) Neuro: Normal gait, Normal speech, Strength at 5/5 X4 ext, Normal tone, Sensation intact, Cranial nerves 3-12 NL, Reflexes 2+ Psych/Mental Status: Mental status NL, Mood NL Vitals Vitals Vital Signs Date Time Temp Pulse Resp B/P (MAP) Pulse Ox O2 Delivery O2 Flow Rate FiO2 07/27/18 20:44 112 18 107/63 (78) 94 Room Air 07/27/18 18:51 98.8 98.8 Labs Labs Laboratory Tests Test 07/27/18 16:55 White Blood Count 8.4 x10^3/uL (4.0-11.0) Red Blood Count 3.05 x10^6/uL (3.50-5.40) Hemoglobin 9.5 g/dL (12.0-15.5) Hematocrit 29.6 % (36.0-47.0) Mean Corpuscular Volume 97 fL (79-100) Mean Corpuscular Hemoglobin 31 pg (25-35) Mean Corpuscular Hemoglobin Concent 32 g/dL (31-37) Red Cell Distribution Width 16.0 % (11.5-14.5) Platelet Count 259 x10^3/uL (140-400) Neutrophils (%) (Auto) 71 % (31-73) Lymphocytes (%) (Auto) 14 % (24-48) Monocytes (%) (Auto) 9 % (0-9) Eosinophils (%) (Auto) 6 % (0-3) Basophils (%) (Auto) 1 % (0-3) Neutrophils # (Auto) 5.9 x10^3uL (1.8-7.7) Lymphocytes # (Auto) 1.2 x10^3/uL (1.0-4.8) Monocytes # (Auto) 0.7 x10^3/uL (0.0-1.1) Eosinophils # (Auto) 0.5 x10^3/uL (0.0-0.7) Basophils # (Auto) 0.1 x10^3/uL (0.0-0.2) Prothrombin Time 15.2 SEC (11.7-14.0) Prothromb Time International Ratio 1.2 (0.8-1.1) D-Dimer (Darya) 5.04 ug/mlFEU (0.00-0.50) Sodium Level 134 mmol/L (136-145) Potassium Level 4.8 mmol/L (3.5-5.1) Chloride Level 94 mmol/L (98-107) Carbon Dioxide Level 25 mmol/L (21-32) Anion Gap 15 (6-14) Blood Urea Nitrogen 70 mg/dL (7-20) Creatinine 12.1 mg/dL (0.6-1.0) Estimated GFR (Cockcroft-Gault) 4.0 BUN/Creatinine Ratio 6 (6-20) Glucose Level 101 mg/dL (70-99) Lactic Acid Level 1.5 mmol/L (0.4-2.0) Calcium Level 8.9 mg/dL (8.5-10.1) Total Bilirubin 0.4 mg/dL (0.2-1.0) Aspartate Amino Transf (AST/SGOT) 21 U/L (15-37) Alanine Aminotransferase (ALT/SGPT) 9 U/L (14-59) Alkaline Phosphatase 364 U/L (46-116) Troponin I Quantitative < 0.017 ng/mL (0.000-0.055) Total Protein 8.5 g/dL (6.4-8.2) Albumin 2.8 g/dL (3.4-5.0) Albumin/Globulin Ratio 0.5 (1.0-1.7) Serum Test, Qualitative Negative (NEG) Laboratory Tests Test 07/27/18 16:55 White Blood Count 8.4 x10^3/uL (4.0-11.0) Red Blood Count 3.05 x10^6/uL (3.50-5.40) Hemoglobin 9.5 g/dL (12.0-15.5) Hematocrit 29.6 % (36.0-47.0) Mean Corpuscular Volume 97 fL (79-100) Mean Corpuscular Hemoglobin 31 pg (25-35) Mean Corpuscular Hemoglobin Concent 32 g/dL (31-37) Red Cell Distribution Width 16.0 % (11.5-14.5) Platelet Count 259 x10^3/uL (140-400) Neutrophils (%) (Auto) 71 % (31-73) Lymphocytes (%) (Auto) 14 % (24-48) Monocytes (%) (Auto) 9 % (0-9) Eosinophils (%) (Auto) 6 % (0-3) Basophils (%) (Auto) 1 % (0-3) Neutrophils # (Auto) 5.9 x10^3uL (1.8-7.7) Lymphocytes # (Auto) 1.2 x10^3/uL (1.0-4.8) Monocytes # (Auto) 0.7 x10^3/uL (0.0-1.1) Eosinophils # (Auto) 0.5 x10^3/uL (0.0-0.7) Basophils # (Auto) 0.1 x10^3/uL (0.0-0.2) Prothrombin Time 15.2 SEC (11.7-14.0) Prothromb Time International Ratio 1.2 (0.8-1.1) D-Dimer (Darya) 5.04 ug/mlFEU (0.00-0.50) Sodium Level 134 mmol/L (136-145) Potassium Level 4.8 mmol/L (3.5-5.1) Chloride Level 94 mmol/L (98-107) Carbon Dioxide Level 25 mmol/L (21-32) Anion Gap 15 (6-14) Blood Urea Nitrogen 70 mg/dL (7-20) Creatinine 12.1 mg/dL (0.6-1.0) Estimated GFR (Cockcroft-Gault) 4.0 BUN/Creatinine Ratio 6 (6-20) Glucose Level 101 mg/dL (70-99) Lactic Acid Level 1.5 mmol/L (0.4-2.0) Calcium Level 8.9 mg/dL (8.5-10.1) Total Bilirubin 0.4 mg/dL (0.2-1.0) Aspartate Amino Transf (AST/SGOT) 21 U/L (15-37) Alanine Aminotransferase (ALT/SGPT) 9 U/L (14-59) Alkaline Phosphatase 364 U/L (46-116) Troponin I Quantitative < 0.017 ng/mL (0.000-0.055) Total Protein 8.5 g/dL (6.4-8.2) Albumin 2.8 g/dL (3.4-5.0) Albumin/Globulin Ratio 0.5 (1.0-1.7) Serum Test, Qualitative Negative (NEG) Images Images VQ - There is low probability for pulmonary embolic disease. VTE Prophylaxis Ordered VTE Prophylaxis Devices: Yes VTE Pharmacological Prophylaxi: Yes Assessment/Plan Assessment/Plan A/P: Shortness of breath - low prob VQ, I will stop heparin GTT. Needs IS. will treat for her interstitial pattern on CXR as pneumonia for now, will need to consider pulm consultation Chest pain - this seems pleuritic, will change her pain meds for renal clearance to fentanyl and hydrocodone. D/c oxycodone and morphine orders. Check trop Hyperphosphatemia - states she takes phos binders outpatient regularly, consult nephrology Uremia - BUN 70, she likes needs dialysis tomorrow, consult nephrology ESRD - previously failed renal transplant 2010, then on PD in 2015, now on HD with 4 failed grafts in bilateral UE. Consult nephro H/o renal transplant - failed, not on immunosuppressants any longer Right knee swelling - expected post-op. Will call Dr. David to let him know his patient is in house for an unrelated issue. Cont PT FEN - renal diet PPX - heparin FULL CODE Inpatient for shortness of breath, may need to stay at least 2 midnights to resolve the etiology INDERJIT DURAND MD Jul 27, 2018 21:06
[2018-07-27] MEDS ORDERED: fentaNYL PF VIAL 100 MCG/2 ML VIAL IV PRN (21:15)
--- NOTE | 2018-07-27 21:19 | RAD ---
Ventilation perfusion exam History: Shortness of breath for 2 days, recent knee surgery Comparison: Chest radiograph the same day Findings: Ventilation perfusion examination was performed. Ventilation images were acquired after the patient inhaled 18 mCi of xenon-133 gas. Perfusion images were acquired after the patient was injected with 5 mCi of technetium 99m MAA. No mismatched perfusion defect is identified. Impression: 1. There is low probability for pulmonary embolic disease. Electronically signed by: Peng Cm MD (07/27/2018 9:16 PM) [facility]
[2018-07-27] MEDS: HYDROcodone/APAP 7.5/325MG 1 TAB TABLET PO PRN (21:25)
[2018-07-27] MEDS ORDERED: VANCOMYCIN 1 GM in IV NORMAL SALINE 250ML 250 ML IV ONE (22:30)
[2018-07-27] MEDS ORDERED: VANCOMYCIN 1GM IVPB FOR OMNI 250 ML IV ONE (22:30)
[2018-07-27] MEDS: CEFEPIME HCL IV Push 1 GM VIAL. IVP SCH (22:54)
[2018-07-27 22:55] VITALS: BP 103/73
[2018-07-27] MEDS: VANCOMYCIN PER PHARMACY MC PRN (23:29)
--- NOTE | 2018-07-28 00:01 | NUR ---
Pharmacy Vancomycin Dosing Note S:Consulted to monitor and dose vancomycin started 07/27/18. O:MARIANN LONG is a 48 year old F with Empiric SOB . Height: 5 feet, 9 inches Weight: 71.488758 kg Vincent Body Weight: 66.20 Adjusted Body Weight: 68.20 Dosing Weight: Actual Other Antibiotics: CEFEPIME 1GM IV Q24HRS LABS: Last BUN: 70 Last Creatinine: 12.1 Creatinine Clearance: 6.1 mL/min PERITONEAL DIALYSIS Last WBC: 8.4 Last Procalcitonin: Tmax (past 24 hours): Microbiology: I/O: Drug Levels: Last level: on at Last dose given at Vancomycin Dosing: Loading Dose: Dosing Weight: Actual Target Trough: 15-20 A: Based on: Actual Wt and CrCl P: 1. 07/27/18 225 Vancomycin 1000 mg IV One Time 2. Follow up Random level on 07/29/18 at 2300 3. Pharmacy will continue to monitor, follow and adjust therapy as needed. ASA MARROQUIN RPH, 07/28/18 0001 Signed: 07/28/18 at 0003 by ASA MARROQUIN RPH PHA
[2018-07-28 03:59] VITALS: BP 110/76
[2018-07-28] MEDS: HYDROcodone/APAP 7.5/325MG 1 TAB TABLET PO PRN ×2 (04:08→19:08)
[2018-07-28 04:30] LABS: CREATININE 12.5 mg/dL (0.6-1.0); GFR 3.9
[2018-07-28 04:37] LABS: CHOLESTEROL/HDL RATIO 3.3
--- NOTE | 2018-07-28 06:45 | EKG ---
[facility] [address] [place] [address] Test Date: 2018-07-27 Test Time: 16:19:03 Pat Name: MARIANN LONG Department: Room: 256 1 Gender: F Rn Bone Marrow Transplant: : 1970 Requested By: BO ESPINOZA Order Number: [id number] Reading MD: Zeferino Ovalle MD Measurements Intervals Collins Rate: 121 P: -109 VT: 124 QRS: 16 QRSD: 70 T: 30 QT: 356 QTc: 509 Interpretive Statements SINUS TACHYCARDIA Electronically Signed On 07-28-2018 11:11:55 BARREL CHARRER by Zeferino Ovalle MD
[2018-07-28 07:00] VITALS: BP 108/58
--- NOTE | 2018-07-28 07:35 | PDOC ---
PROGRESS NOTES Chief Complaint Chief Complaint A/P: Shortness of breath - low prob VQ, I will stop heparin GTT. Needs IS. will treat for her interstitial pattern on CXR as pneumonia for now, will need to consider pulm consultation Chest pain - this seems pleuritic, will change her pain meds for renal clearance to fentanyl and hydrocodone. D/c oxycodone and morphine orders. 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 Consult nephro H/o renal transplant - failed, not on immunosuppressants any longer Right knee swelling - expected post-op. Will call Dr. David to let him know his patient is in house for an unrelated issue. Cont PT FEN - renal diet PPX - heparin FULL CODE Inpatient for shortness of breath, may need to stay at least 2 midnights to resolve the etiology History of Present Illness History of Present Illness Ms Desai is a 48 year old AA female w/ PMHx ESRD (previously failed renal transplant 2010, then on PD in 2016, now on HD with 4 failed grafts in bilateral UE) who presents to ED with complaints of increased swelling and warmth to right leg, shortness of breath, and rapid heart beat x2 days. She also noted left axillary chest pain and tightness on deep inspiration. She states she had a torn ligament in her R knee repaired here by Dr. David on . She went to her PCP Dr. Sinha who sent her to the ER. Pt denies any body aches, chills, or cough. She reports that she feels fatigued all over. Currently, she rates the pain in her right knee a 5/10, the pain increases with movement or palpation. She has been taking the pain medication as prescribed and states it has helped with the pain. Pt states she has been ambulatory at home with a walker. She was started on heparin GTT for presumptive PE, unable to do CTPA due to no good IV access and hospital protocol prohibiting use of her dialysis catheter, so underwent VQ scan which was low probability with no mismatch [place] better overnight after starting antibiotics and nebulizers. Knee is stiff, swollen, painful. Still with left chest wall pain and shortness of breath. Seen on dialysis today. Plan: Cont antibiotics. Will try to get a sputum sample. Will consult pulm for HCAP PT to see for her knee Vitals Vitals Vital Signs Date Time Temp Pulse Resp B/P (MAP) Pulse Ox O2 Delivery O2 Flow Rate FiO2 07/28/18 05:08 Room Air 07/28/18 04:08 94 07/28/18 03:59 98.8 94 16 110/76 (87) 98.8 Physical Exam General: Alert, Oriented X3, Cooperative, No acute distress Lungs: Wheezing Abdomen: Normal bowel sounds, Soft, No tenderness, No hepatosplenomegaly, No masses Extremities: No clubbing, No cyanosis, No edema, Normal pulses, Other (Right knee swelling, good pulses) Skin: Other (Right chest wall HD catheter clean) Labs LABS Laboratory Tests Test 07/27/18 16:55 07/28/18 03:05 07/28/18 03:25 White Blood Count 8.4 x10^3/uL (4.0-11.0) Red Blood Count 3.05 x10^6/uL (3.50-5.40) Hemoglobin 9.5 g/dL (12.0-15.5) Hematocrit 29.6 % (36.0-47.0) Mean Corpuscular Volume 97 fL (79-100) Mean Corpuscular Hemoglobin 31 pg (25-35) Mean Corpuscular Hemoglobin Concent 32 g/dL (31-37) Red Cell Distribution Width 16.0 % (11.5-14.5) Platelet Count 259 x10^3/uL (140-400) Neutrophils (%) (Auto) 71 % (31-73) Lymphocytes (%) (Auto) 14 % (24-48) Monocytes (%) (Auto) 9 % (0-9) Eosinophils (%) (Auto) 6 % (0-3) Basophils (%) (Auto) 1 % (0-3) Neutrophils # (Auto) 5.9 x10^3uL (1.8-7.7) Lymphocytes # (Auto) 1.2 x10^3/uL (1.0-4.8) Monocytes # (Auto) 0.7 x10^3/uL (0.0-1.1) Eosinophils # (Auto) 0.5 x10^3/uL (0.0-0.7) Basophils # (Auto) 0.1 x10^3/uL (0.0-0.2) Prothrombin Time 15.2 SEC (11.7-14.0) Prothromb Time International Ratio 1.2 (0.8-1.1) D-Dimer (Darya) 5.04 ug/mlFEU (0.00-0.50) Sodium Level 134 mmol/L (136-145) Potassium Level 4.8 mmol/L (3.5-5.1) Chloride Level 94 mmol/L (98-107) Carbon Dioxide Level 25 mmol/L (21-32) Anion Gap 15 (6-14) Blood Urea Nitrogen 70 mg/dL (7-20) 71 mg/dL (7-20) Creatinine 12.1 mg/dL (0.6-1.0) 12.5 mg/dL (0.6-1.0) Estimated GFR (Cockcroft-Gault) 4.0 3.9 BUN/Creatinine Ratio 6 (6-20) Glucose Level 101 mg/dL (70-99) Lactic Acid Level 1.5 mmol/L (0.4-2.0) Calcium Level 8.9 mg/dL (8.5-10.1) Total Bilirubin 0.4 mg/dL (0.2-1.0) Aspartate Amino Transf (AST/SGOT) 21 U/L (15-37) Alanine Aminotransferase (ALT/SGPT) 9 U/L (14-59) Alkaline Phosphatase 364 U/L (46-116) Troponin I Quantitative < 0.017 ng/mL (0.000-0.055) Total Protein 8.5 g/dL (6.4-8.2) Albumin 2.8 g/dL (3.4-5.0) Albumin/Globulin Ratio 0.5 (1.0-1.7) Serum Test, Qualitative Negative (NEG) Triglycerides Level 98 mg/dL (0-150) Cholesterol Level 119 mg/dL (0-200) LDL Cholesterol, Calculated 63 mg/dL (0-100) VLDL Cholesterol, Calculated 20 mg/dL (0-40) Non-HDL Cholesterol Calculated 83 mg/dL (0-129) HDL Cholesterol 36 mg/dL (40-60) Cholesterol/HDL Ratio 3.3 Procalcitonin 3.09 ng/mL (0.00-0.10) Comment Review of Relevant I have reviewed the following items chioma (where applicable) has been applied. Labs Laboratory Tests Test 07/27/18 16:55 07/28/18 03:05 07/28/18 03:25 White Blood Count 8.4 x10^3/uL (4.0-11.0) Red Blood Count 3.05 x10^6/uL (3.50-5.40) Hemoglobin 9.5 g/dL (12.0-15.5) Hematocrit 29.6 % (36.0-47.0) Mean Corpuscular Volume 97 fL (79-100) Mean Corpuscular Hemoglobin 31 pg (25-35) Mean Corpuscular Hemoglobin Concent 32 g/dL (31-37) Red Cell Distribution Width 16.0 % (11.5-14.5) Platelet Count 259 x10^3/uL (140-400) Neutrophils (%) (Auto) 71 % (31-73) Lymphocytes (%) (Auto) 14 % (24-48) Monocytes (%) (Auto) 9 % (0-9) Eosinophils (%) (Auto) 6 % (0-3) Basophils (%) (Auto) 1 % (0-3) Neutrophils # (Auto) 5.9 x10^3uL (1.8-7.7) Lymphocytes # (Auto) 1.2 x10^3/uL (1.0-4.8) Monocytes # (Auto) 0.7 x10^3/uL (0.0-1.1) Eosinophils # (Auto) 0.5 x10^3/uL (0.0-0.7) Basophils # (Auto) 0.1 x10^3/uL (0.0-0.2) Prothrombin Time 15.2 SEC (11.7-14.0) Prothromb Time International Ratio 1.2 (0.8-1.1) D-Dimer (Darya) 5.04 ug/mlFEU (0.00-0.50) Sodium Level 134 mmol/L (136-145) Potassium Level 4.8 mmol/L (3.5-5.1) Chloride Level 94 mmol/L (98-107) Carbon Dioxide Level 25 mmol/L (21-32) Anion Gap 15 (6-14) Blood Urea Nitrogen 70 mg/dL (7-20) 71 mg/dL (7-20) Creatinine 12.1 mg/dL (0.6-1.0) 12.5 mg/dL (0.6-1.0) Estimated GFR (Cockcroft-Gault) 4.0 3.9 BUN/Creatinine Ratio 6 (6-20) Glucose Level 101 mg/dL (70-99) Lactic Acid Level 1.5 mmol/L (0.4-2.0) Calcium Level 8.9 mg/dL (8.5-10.1) Total Bilirubin 0.4 mg/dL (0.2-1.0) Aspartate Amino Transf (AST/SGOT) 21 U/L (15-37) Alanine Aminotransferase (ALT/SGPT) 9 U/L (14-59) Alkaline Phosphatase 364 U/L (46-116) Troponin I Quantitative < 0.017 ng/mL (0.000-0.055) Total Protein 8.5 g/dL (6.4-8.2) Albumin 2.8 g/dL (3.4-5.0) Albumin/Globulin Ratio 0.5 (1.0-1.7) Serum Test, Qualitative Negative (NEG) Triglycerides Level 98 mg/dL (0-150) Cholesterol Level 119 mg/dL (0-200) LDL Cholesterol, Calculated 63 mg/dL (0-100) VLDL Cholesterol, Calculated 20 mg/dL (0-40) Non-HDL Cholesterol Calculated 83 mg/dL (0-129) HDL Cholesterol 36 mg/dL (40-60) Cholesterol/HDL Ratio 3.3 Procalcitonin 3.09 ng/mL (0.00-0.10) Laboratory Tests Test 07/27/18 16:55 07/28/18 03:05 07/28/18 03:25 White Blood Count 8.4 x10^3/uL (4.0-11.0) Red Blood Count 3.05 x10^6/uL (3.50-5.40) Hemoglobin 9.5 g/dL (12.0-15.5) Hematocrit 29.6 % (36.0-47.0) Mean Corpuscular Volume 97 fL (79-100) Mean Corpuscular Hemoglobin 31 pg (25-35) Mean Corpuscular Hemoglobin Concent 32 g/dL (31-37) Red Cell Distribution Width 16.0 % (11.5-14.5) Platelet Count 259 x10^3/uL (140-400) Neutrophils (%) (Auto) 71 % (31-73) Lymphocytes (%) (Auto) 14 % (24-48) Monocytes (%) (Auto) 9 % (0-9) Eosinophils (%) (Auto) 6 % (0-3) Basophils (%) (Auto) 1 % (0-3) Neutrophils # (Auto) 5.9 x10^3uL (1.8-7.7) Lymphocytes # (Auto) 1.2 x10^3/uL (1.0-4.8) Monocytes # (Auto) 0.7 x10^3/uL (0.0-1.1) Eosinophils # (Auto) 0.5 x10^3/uL (0.0-0.7) Basophils # (Auto) 0.1 x10^3/uL (0.0-0.2) Prothrombin Time 15.2 SEC (11.7-14.0) Prothromb Time International Ratio 1.2 (0.8-1.1) D-Dimer (Darya) 5.04 ug/mlFEU (0.00-0.50) Sodium Level 134 mmol/L (136-145) Potassium Level 4.8 mmol/L (3.5-5.1) Chloride Level 94 mmol/L (98-107) Carbon Dioxide Level 25 mmol/L (21-32) Anion Gap 15 (6-14) Blood Urea Nitrogen 70 mg/dL (7-20) 71 mg/dL (7-20) Creatinine 12.1 mg/dL (0.6-1.0) 12.5 mg/dL (0.6-1.0) Estimated GFR (Cockcroft-Gault) 4.0 3.9 BUN/Creatinine Ratio 6 (6-20) Glucose Level 101 mg/dL (70-99) Lactic Acid Level 1.5 mmol/L (0.4-2.0) Calcium Level 8.9 mg/dL (8.5-10.1) Total Bilirubin 0.4 mg/dL (0.2-1.0) Aspartate Amino Transf (AST/SGOT) 21 U/L (15-37) Alanine Aminotransferase (ALT/SGPT) 9 U/L (14-59) Alkaline Phosphatase 364 U/L (46-116) Troponin I Quantitative < 0.017 ng/mL (0.000-0.055) Total Protein 8.5 g/dL (6.4-8.2) Albumin 2.8 g/dL (3.4-5.0) Albumin/Globulin Ratio 0.5 (1.0-1.7) Serum Test, Qualitative Negative (NEG) Triglycerides Level 98 mg/dL (0-150) Cholesterol Level 119 mg/dL (0-200) LDL Cholesterol, Calculated 63 mg/dL (0-100) VLDL Cholesterol, Calculated 20 mg/dL (0-40) Non-HDL Cholesterol Calculated 83 mg/dL (0-129) HDL Cholesterol 36 mg/dL (40-60) Cholesterol/HDL Ratio 3.3 Procalcitonin 3.09 ng/mL (0.00-0.10) Medications Current Medications Morphine Sulfate (Morphine Sulfate) 4 mg 1X ONCE IV Last administered on at 18:46; Start 07/27/18 at 18:15; Stop 07/27/18 at 21:05; Status DC Morphine Sulfate (Morphine Sulfate) 4 mg 1X ONCE IV ; Start 07/27/18 at 18:45; Stop 07/27/18 at 21:05; Status DC Ondansetron HCl (Zofran) 4 mg 1X ONCE IV Last administered on 07/27/18at 18:46; Start 07/27/18 at 18:45; Stop 07/27/18 at 18:46; Status DC Heparin Sodium (Porcine) (Heparin Sodium) 6,200 unit 1X ONCE IV Last administered on 07/27/18at 19:44; Start 07/27/18 at 19:15; Stop 07/27/18 at 22:12; Status DC Heparin Sodium/ Dextrose 500 ml @ 24.6 mls/hr CONT PRN IV SEE I/O RECORD Last administered on 07/27/18at 19:43; Start 07/27/18 at 19:15; Stop 07/27/18 at 22:12; Status DC Heparin Sodium (Porcine) (Heparin Sodium) 2,300 unit PRN Q6HRS PRN IV FOR UFH LEVEL LESS THAN 0.2; Start 07/27/18 at 19:15; Stop 07/27/18 at 22:12; Status DC Heparin Sodium (Porcine) (Heparin Sodium) 1,150 unit PRN Q6HRS PRN IV FOR UFH LEVEL 0.2 - 0.29; Start 07/27/18 at 19:15; Stop 07/27/18 at 22:12; Status DC Aspirin (Abdirahman Aspirin) 325 mg DAILY PO ; Start 07/28/18 at 09:00 Cinacalcet (Sensipar) 30 mg DAILY PO ; Start 07/28/18 at 09:00 Vitamin D (Vitamin D3) 1,000 unit DAILY PO ; Start 07/28/18 at 09:00 Vitamin B Complex/ Vitamin C (Robina-Shea) 1 tab DAILY PO ; Start 07/28/18 at 09:00 Calcium Acetate (Phoslo) 1,334 mg TIDWMEALS PO ; Start 07/28/18 at 08:00 Fentanyl Citrate (Fentanyl 2ml Vial) 25 mcg PRN Q4HRS PRN IV MODERATE PAIN; Start 07/27/18 at 21:15 Acetaminophen/ Hydrocodone Bitart (Lortab 7.5/325) 1 tab PRN Q6HRS PRN PO MODERATE PAIN Last administered on 07/28/18at 04:08; Start 07/27/18 at 21:15 Cefepime HCl (Maxipime) 1 gm Q24H IVP Last administered on 07/27/18at 22:54; Start 07/27/18 at 22:30 Vancomycin HCl (Vanco Per Pharmacy) 1 each PRN DAILY PRN MC SEE COMMENTS Last administered on 07/27/18at 23:29; Start 07/27/18 at 22:15 Vancomycin HCl 250 ml @ 250 mls/hr 1X ONCE IV ; Start 07/27/18 at 22:30; Stop 07/27/18 at 23:29; Status Cancel Vancomycin HCl 1 gm/Sodium Chloride 250 ml @ 250 mls/hr ONCE ONCE IV Last administered on 07/27/18at 22:54; Start 07/27/18 at 22:30; Stop 07/27/18 at 23:29; Status DC Vancomycin HCl (Vancomycin Random Level) 1 each 1X ONCE MC ; Start 07/29/18 at 23:00; Stop 07/29/18 at 23:01 Active Scripts Active Percocet 10-325 Mg Tablet (Oxycodone/Acetaminophen) 1 Each Tablet 1-2 Tab PO PRN Q4HRS PRN 14 Days Aspirin 325 Mg Tablet 325 Mg PO DAILY MDD 325 mg Take on aspirin 325 mg daily for 30 days [Calcium Acetate] 667 MG Capsule 1,334 Mg PO TIDWMEALS 30 Days Reported Robina-Shea Rx Tablet (Vit B Cmplx 3/Fa/Vit C/Biotin) 1 Each Tablet 1 Each PO DAILY Vitamin D (Cholecalciferol (Vitamin D3)) 1,000 Unit Capsule 1 Cap PO DAILY Sensipar (Cinacalcet Hcl) 30 Mg Tablet 1 Tab PO DAILY Vitals/I & O Vital Sign - Last 24 Hours 07/27/18 07/27/18 07/27/18 07/27/18 16:00 17:58 18:46 18:51 Temp 98.8 98.8 98.8 98.8 Pulse 125 113 112 Resp 20 11 20 17 B/P (MAP) 123/67 (85) 119/72 (88) 125/67 (86) Pulse Ox 95 95 96 95 O2 Delivery Room Air Room Air Room Air 07/27/18 07/27/18 07/27/18 07/27/18 19:15 19:45 20:44 20:45 Pulse 114 112 112 Resp 20 20 18 B/P (MAP) 115/76 (89) 112/65 (81) 107/63 (78) Pulse Ox 97 96 94 O2 Delivery Room Air Room Air Room Air Room Air 07/27/18 07/27/18 07/27/18 07/28/18 20:57 21:25 22:55 03:59 Temp 99.6 99.2 98.8 99.6 99.2 98.8 Pulse 115 108 94 Resp 16 16 16 B/P (MAP) 118/77 (91) 103/73 (83) 110/76 (87) Pulse Ox 92 92 93 94 O2 Delivery Room Air Room Air Room Air Room Air 07/28/18 07/28/18 04:08 05:08 Pulse Ox 94 O2 Delivery Room Air Room Air Intake and Output 07/27/18 07/27/18 07/28/18 14:59 22:59 06:59 Intake Total 296 ml 400 ml Output Total 375 ml Balance 296 ml 25 ml INDERJIT DURAND MD Jul 28, 2018 07:35
[2018-07-28] MEDS ORDERED: IV NORMAL SALINE 1000ML BAG 1,000 ML IV PRN ×2 (07:43)
[2018-07-28] MEDS ORDERED: diphenhydrAMINE 50 MG/ML VIAL IV PRN ×2 (07:45)
[2018-07-28] MEDS ORDERED: ACETAMINOPHEN 500 MG TABLET PO PRN (07:45)
[2018-07-28] MEDS ORDERED: 0.9 % SODIUM CHLORIDE 10 ML DISP.SYRIN. IV PRN ×2 (07:45)
[2018-07-28] MEDS ORDERED: DIALYSIS PATIENT. MC PRN (07:45)
[2018-07-28] MEDS ORDERED: ALBUMIN HUMAN 25% 200 ML IV PRN (07:45)
[2018-07-28] MEDS: CALCIUM ACETATE 667 MG CAPSULE PO SCH ×3 (08:00→17:23)
--- NOTE | 2018-07-28 08:55 | PDOC2 ---
CONSULT Date of Consult Date of Consult DATE: 07/28/18 TIME: 08:51 Reason for Consult Reason for Consult: Recent right knee surgery Referring Physician Referring Physician: Hillary Identification/Chief Complaint Chief Complaint "I feel crummy" Source Source: Chart review, Patient History of Present Illness Reason for Visit: Patient is a very pleasant 40-year-old female with end-stage renal disease on dialysis who underwent a quadriceps rupture repair with my colleague Dr. David on 07/19/2018. She tells me that her dialysis has been a little bit more difficult secondary to her limitation mobility. She has been leaving the brace in place. She has not noticed any drainage from the knee. Overall, she tells me her knee feels fine. She does have some difficulty breathing and taking a deep breath. She feel sick in general. Past Medical History Cardiovascular: No pertinent hx Pulmonary: No pertinent hx GI: No pertinent hx Heme/Onc: Other Hepatobiliary: No pertinent hx Psych: No pertinent hx Rheumatologic: No pertinent hx Infectious disease: No pertinent hx Renal/: Chronic renal failure, Other Endocrine: No pertinent hx, Hyperparathyroidism Past Surgical History Past Surgical History: Other (open right quadriceps repair 07/19/2018) Family History Family History: Hypertension Social History ALCOHOL: none Drugs: None Current Medications Current Medications Current Medications Morphine Sulfate (Morphine Sulfate) 4 mg 1X ONCE IV Last administered on at 18:46; Start 07/27/18 at 18:15; Stop 07/27/18 at 21:05; Status DC Morphine Sulfate (Morphine Sulfate) 4 mg 1X ONCE IV ; Start 07/27/18 at 18:45; Stop 07/27/18 at 21:05; Status DC Ondansetron HCl (Zofran) 4 mg 1X ONCE IV Last administered on 07/27/18at 18:46; Start 07/27/18 at 18:45; Stop 07/27/18 at 18:46; Status DC Heparin Sodium (Porcine) (Heparin Sodium) 6,200 unit 1X ONCE IV Last administered on 07/27/18at 19:44; Start 07/27/18 at 19:15; Stop 07/27/18 at 22:12; Status DC Heparin Sodium/ Dextrose 500 ml @ 24.6 mls/hr CONT PRN IV SEE I/O RECORD Last administered on 07/27/18at 19:43; Start 07/27/18 at 19:15; Stop 07/27/18 at 22:12; Status DC Heparin Sodium (Porcine) (Heparin Sodium) 2,300 unit PRN Q6HRS PRN IV FOR UFH LEVEL LESS THAN 0.2; Start 07/27/18 at 19:15; Stop 07/27/18 at 22:12; Status DC Heparin Sodium (Porcine) (Heparin Sodium) 1,150 unit PRN Q6HRS PRN IV FOR UFH LEVEL 0.2 - 0.29; Start 07/27/18 at 19:15; Stop 07/27/18 at 22:12; Status DC Aspirin (Abdirahman Aspirin) 325 mg DAILY PO ; Start 07/28/18 at 09:00 Cinacalcet (Sensipar) 30 mg DAILY PO ; Start 07/28/18 at 09:00 Vitamin D (Vitamin D3) 1,000 unit DAILY PO ; Start 07/28/18 at 09:00 Vitamin B Complex/ Vitamin C (Robina-Shea) 1 tab DAILY PO ; Start 07/28/18 at 09:00 Calcium Acetate (Phoslo) 1,334 mg TIDWMEALS PO ; Start 07/28/18 at 08:00 Fentanyl Citrate (Fentanyl 2ml Vial) 25 mcg PRN Q4HRS PRN IV MODERATE PAIN; Start 07/27/18 at 21:15 Acetaminophen/ Hydrocodone Bitart (Lortab 7.5/325) 1 tab PRN Q6HRS PRN PO MODERATE PAIN Last administered on 07/28/18at 04:08; Start 07/27/18 at 21:15 Cefepime HCl (Maxipime) 1 gm Q24H IVP Last administered on 07/27/18at 22:54; Start 07/27/18 at 22:30 Vancomycin HCl (Vanco Per Pharmacy) 1 each PRN DAILY PRN MC SEE COMMENTS Last administered on 07/27/18at 23:29; Start 07/27/18 at 22:15 Vancomycin HCl 250 ml @ 250 mls/hr 1X ONCE IV ; Start 07/27/18 at 22:30; Stop 07/27/18 at 23:29; Status Cancel Vancomycin HCl 1 gm/Sodium Chloride 250 ml @ 250 mls/hr ONCE ONCE IV Last administered on 07/27/18at 22:54; Start 07/27/18 at 22:30; Stop 07/27/18 at 23:29; Status DC Vancomycin HCl (Vancomycin Random Level) 1 each 1X ONCE MC ; Start 07/29/18 at 23:00; Stop 07/29/18 at 23:01 Sodium Chloride 1,000 ml @ 1,000 mls/hr Q1H PRN IV hypotension; Start 07/28/18 at 07:43; Stop 07/28/18 at 13:42 Albumin Human 200 ml @ 200 mls/hr 1X PRN PRN IV Hypotension; Start 07/28/18 at 07:45; Stop 07/28/18 at 13:44 Acetaminophen (Tylenol) 500 mg 1X PRN PRN PO MILD PAIN / TEMP; Start 07/28/18 at 07:45; Stop 07/29/18 at 07:44 Diphenhydramine HCl (Benadryl) 25 mg 1X PRN PRN IV ITCHING; Start 07/28/18 at 07 :45; Stop 07/29/18 at 07:44 Diphenhydramine HCl (Benadryl) 25 mg 1X PRN PRN IV ITCHING; Start 07/28/18 at 07 :45; Stop 07/29/18 at 07:44 Sodium Chloride (Normal Saline Flush) 10 ml 1X PRN PRN IV AP catheter pack; Start 07/28/18 at 07:45; Stop 07/29/18 at 07:44 Sodium Chloride (Normal Saline Flush) 10 ml 1X PRN PRN IV [employer] catheter pack; Start 07/28/18 at 07:45; Stop 07/29/18 at 07:44 Sodium Chloride 1,000 ml @ 400 mls/hr Q2H30M PRN IV PATENCY; Start 07/28/18 at 07:43; Stop 07/28/18 at 19:42 Info (PHARMACY MONITORING -- do not chart) 1 each PRN DAILY PRN MC SEE COMMENTS ; Start 07/28/18 at 07:45 Active Scripts Active Percocet 10-325 Mg Tablet (Oxycodone/Acetaminophen) 1 Each Tablet 1-2 Tab PO PRN Q4HRS PRN 14 Days Aspirin 325 Mg Tablet 325 Mg PO DAILY MDD 325 mg Take on aspirin 325 mg daily for 30 days [Calcium Acetate] 667 MG Capsule 1,334 Mg PO TIDWMEALS 30 Days Reported Robina-Shea Rx Tablet (Vit B Cmplx 3/Fa/Vit C/Biotin) 1 Each Tablet 1 Each PO DAILY Vitamin D (Cholecalciferol (Vitamin D3)) 1,000 Unit Capsule 1 Cap PO DAILY Sensipar (Cinacalcet Hcl) 30 Mg Tablet 1 Tab PO DAILY Allergies Allergies: Coded Allergies: No Known Drug Allergies (Unverified , 07/19/18) ROS General: YES: Chills, Fatigue PSYCHOLOGICAL ROS: No: Anxiety, Behavioral Disorder, Concentration difficultie , Decreased libido, Depression, Disorientation, Hallucinations, Hostility, Irritablity, Memory difficulties, Mood Swings, Obsessive thoughts, Physical abuse, Sexual abuse, Sleep disturbances, Suicidal ideation, Other Eyes: No Blurry vision, No Decreased vision, No Double vision, No Dry eyes, No Excessive tearing, No Eye Pain, No Itchy Eyes, No Loss of vision, No Photophobia , No Scotomata, No Uses contacts, No Uses glasses, No Other HEENT: No: Heacaches, Visual Changes, Hearing change, Nasal congestion, Nasal discharge, Oral lesions, Sinus pain, Sore Throat, Epistaxis, Sneezing, Snoring, Tinnitus, Vertigo, Vocal changes, Other ALLERGY AND IMMUNOLOGY: No: Hives, Insect Bite Sensitivity, Itchy/Watery Eyes, Nasal Congestion, Post Nasal Drip, Seasonal Allergies, Other Hematological and Lymphatic: No: Bleeding Problems, Blood Clots, Blood Transfusions, Brusing, Night Sweats, Pallor, Swollen Lymph Nodes, Other ENDOCRINE: No: Breast Changes, Galactorrhea, Hair Pattern Changes, Hot Flashes , Malaise/lethargy, Mood Swings, Palpitations, Polydipsia/polyuria, Skin Changes , Temperature Intolerance, Unexpected Weight Changes, Other Respiratory: YES: Shortness of breath Cardiovascular: No Chest Pain, No Palpitations, No Orthopnea, No Paroxysmal Noc. Dyspnea, No Edema, No Lt Headedness, No Other Gastrointestinal: No Nausea, No Vomiting, No Abdominal Pain, No Diarrhea, No Constipation, No Melena, No Hematochezia, No Other Genitourinary: No Dysuria, No Frequency, No Incontinence, No Hematuria, No Retention, No Discharge, No Urgency, No Pain, No Flank Pain, No Other, No , No , No , No , No , No , No Musculoskeletal: Yes Joint Pain, Yes Joint Swelling Neurological: No Behavorial Changes, No Bowel/Bladder ControlChng, No Confusion , No Dizziness, No Gait Disturbance, No Headaches, No Impaired Coord/balance, No Memory Loss, No Numbness/Tingling, No Seizures, No Speech Problems, No Tremors, No Visual Changes, No Weakness, No Other Skin: No Dry Skin, No Eczema, No Hair Changes, No Lumps, No Mole Changes, No Mottling, No Nail Changes, No Pruritus, No Rash, No Skin Lesion Changes, No Other, No Acne Physical Exam General: Alert, Oriented X3, No acute distress HEENT: Atraumatic, EOMI Lungs: Other (respirations are unlabored with symmetric chest rise) Heart: Regular rate Abdomen: Soft, No tenderness Extremities: No edema, Normal pulses Neuro: Normal speech, Strength at 5/5 X4 ext, Sensation intact Psych/Mental Status: Mental status NL, Mood NL MUSCULOSKELETAL: Other (examination of her right lower extremity reveals good strength distally. The surgical dressings in place, no drainage present. Mild knee effusion is present. Mild decreased quad bulk right side compared was normal left side. Hinge knee brace was in place upon my arrival.) Vitals VITALS Vital Signs Date Time Temp Pulse Resp B/P (MAP) Pulse Ox O2 Delivery O2 Flow Rate FiO2 07/28/18 07:00 98.0 94 18 108/58 (75) 92 Room Air 98.0 Labs Labs Laboratory Tests Test 07/27/18 16:55 07/28/18 03:05 07/28/18 03:25 White Blood Count 8.4 x10^3/uL (4.0-11.0) Red Blood Count 3.05 x10^6/uL (3.50-5.40) Hemoglobin 9.5 g/dL (12.0-15.5) Hematocrit 29.6 % (36.0-47.0) Mean Corpuscular Volume 97 fL (79-100) Mean Corpuscular Hemoglobin 31 pg (25-35) Mean Corpuscular Hemoglobin Concent 32 g/dL (31-37) Red Cell Distribution Width 16.0 % (11.5-14.5) Platelet Count 259 x10^3/uL (140-400) Neutrophils (%) (Auto) 71 % (31-73) Lymphocytes (%) (Auto) 14 % (24-48) Monocytes (%) (Auto) 9 % (0-9) Eosinophils (%) (Auto) 6 % (0-3) Basophils (%) (Auto) 1 % (0-3) Neutrophils # (Auto) 5.9 x10^3uL (1.8-7.7) Lymphocytes # (Auto) 1.2 x10^3/uL (1.0-4.8) Monocytes # (Auto) 0.7 x10^3/uL (0.0-1.1) Eosinophils # (Auto) 0.5 x10^3/uL (0.0-0.7) Basophils # (Auto) 0.1 x10^3/uL (0.0-0.2) Prothrombin Time 15.2 SEC (11.7-14.0) Prothromb Time International Ratio 1.2 (0.8-1.1) D-Dimer (Darya) 5.04 ug/mlFEU (0.00-0.50) Sodium Level 134 mmol/L (136-145) Potassium Level 4.8 mmol/L (3.5-5.1) Chloride Level 94 mmol/L (98-107) Carbon Dioxide Level 25 mmol/L (21-32) Anion Gap 15 (6-14) Blood Urea Nitrogen 70 mg/dL (7-20) 71 mg/dL (7-20) Creatinine 12.1 mg/dL (0.6-1.0) 12.5 mg/dL (0.6-1.0) Estimated GFR (Cockcroft-Gault) 4.0 3.9 BUN/Creatinine Ratio 6 (6-20) Glucose Level 101 mg/dL (70-99) Lactic Acid Level 1.5 mmol/L (0.4-2.0) Calcium Level 8.9 mg/dL (8.5-10.1) Total Bilirubin 0.4 mg/dL (0.2-1.0) Aspartate Amino Transf (AST/SGOT) 21 U/L (15-37) Alanine Aminotransferase (ALT/SGPT) 9 U/L (14-59) Alkaline Phosphatase 364 U/L (46-116) Troponin I Quantitative < 0.017 ng/mL (0.000-0.055) Total Protein 8.5 g/dL (6.4-8.2) Albumin 2.8 g/dL (3.4-5.0) Albumin/Globulin Ratio 0.5 (1.0-1.7) Serum Test, Qualitative Negative (NEG) Triglycerides Level 98 mg/dL (0-150) Cholesterol Level 119 mg/dL (0-200) LDL Cholesterol, Calculated 63 mg/dL (0-100) VLDL Cholesterol, Calculated 20 mg/dL (0-40) Non-HDL Cholesterol Calculated 83 mg/dL (0-129) HDL Cholesterol 36 mg/dL (40-60) Cholesterol/HDL Ratio 3.3 Procalcitonin 3.09 ng/mL (0.00-0.10) Laboratory Tests Test 07/27/18 16:55 07/28/18 03:05 07/28/18 03:25 White Blood Count 8.4 x10^3/uL (4.0-11.0) Red Blood Count 3.05 x10^6/uL (3.50-5.40) Hemoglobin 9.5 g/dL (12.0-15.5) Hematocrit 29.6 % (36.0-47.0) Mean Corpuscular Volume 97 fL (79-100) Mean Corpuscular Hemoglobin 31 pg (25-35) Mean Corpuscular Hemoglobin Concent 32 g/dL (31-37) Red Cell Distribution Width 16.0 % (11.5-14.5) Platelet Count 259 x10^3/uL (140-400) Neutrophils (%) (Auto) 71 % (31-73) Lymphocytes (%) (Auto) 14 % (24-48) Monocytes (%) (Auto) 9 % (0-9) Eosinophils (%) (Auto) 6 % (0-3) Basophils (%) (Auto) 1 % (0-3) Neutrophils # (Auto) 5.9 x10^3uL (1.8-7.7) Lymphocytes # (Auto) 1.2 x10^3/uL (1.0-4.8) Monocytes # (Auto) 0.7 x10^3/uL (0.0-1.1) Eosinophils # (Auto) 0.5 x10^3/uL (0.0-0.7) Basophils # (Auto) 0.1 x10^3/uL (0.0-0.2) Prothrombin Time 15.2 SEC (11.7-14.0) Prothromb Time International Ratio 1.2 (0.8-1.1) D-Dimer (Darya) 5.04 ug/mlFEU (0.00-0.50) Sodium Level 134 mmol/L (136-145) Potassium Level 4.8 mmol/L (3.5-5.1) Chloride Level 94 mmol/L (98-107) Carbon Dioxide Level 25 mmol/L (21-32) Anion Gap 15 (6-14) Blood Urea Nitrogen 70 mg/dL (7-20) 71 mg/dL (7-20) Creatinine 12.1 mg/dL (0.6-1.0) 12.5 mg/dL (0.6-1.0) Estimated GFR (Cockcroft-Gault) 4.0 3.9 BUN/Creatinine Ratio 6 (6-20) Glucose Level 101 mg/dL (70-99) Lactic Acid Level 1.5 mmol/L (0.4-2.0) Calcium Level 8.9 mg/dL (8.5-10.1) Total Bilirubin 0.4 mg/dL (0.2-1.0) Aspartate Amino Transf (AST/SGOT) 21 U/L (15-37) Alanine Aminotransferase (ALT/SGPT) 9 U/L (14-59) Alkaline Phosphatase 364 U/L (46-116) Troponin I Quantitative < 0.017 ng/mL (0.000-0.055) Total Protein 8.5 g/dL (6.4-8.2) Albumin 2.8 g/dL (3.4-5.0) Albumin/Globulin Ratio 0.5 (1.0-1.7) Serum Test, Qualitative Negative (NEG) Triglycerides Level 98 mg/dL (0-150) Cholesterol Level 119 mg/dL (0-200) LDL Cholesterol, Calculated 63 mg/dL (0-100) VLDL Cholesterol, Calculated 20 mg/dL (0-40) Non-HDL Cholesterol Calculated 83 mg/dL (0-129) HDL Cholesterol 36 mg/dL (40-60) Cholesterol/HDL Ratio 3.3 Procalcitonin 3.09 ng/mL (0.00-0.10) Images Images Imaging studies were reviewed. Not consistent with DVT. Effusion noted Assessment/Plan Assessment/Plan Overall her knee looks good. I seriously doubt this is the source of any infection. She can weight-bear as tolerated with a hinged knee brace locked in extension. Workup per primary. She should follow up with Dr. David in approximately 10-14 days. SHIRA CALZADA II, MD Jul 28, 2018 08:55
[2018-07-28 10:21] LABS: BILIRUBIN,URINE NEGATIVE (NEG); CLARITY,URINE CLEAR; COLOR,URINE YELLOW; NITRITE,URINE NEGATIVE (NEG); PROTEIN,URINE 30 mg/dL (NEG-TRACE); UROBILINOGEN,URINE 0.2 mg/dL (0.2 mg/dL)
[2018-07-28 10:38] LABS: SQUAMOUS EPITHELIAL CELL,UR MANY /LPF
[2018-07-28 10:39] LABS: BACTERIA,URINE FEW /HPF (0-FEW); RBC,URINE 0 /HPF (0-2)
[2018-07-28] MEDS: ASPIRIN 325 MG TABLET PO SCH (12:02)
[2018-07-28] MEDS: FOLIC/VIT B COMP W-C (RENAL) TABLET. PO SCH (12:02)
[2018-07-28] MEDS: CHOLECALCIFEROL (VITAMIN D3) 1,000 UNIT TABLET PO SCH (12:02)
[2018-07-28] MEDS: CINACALCET HCL 30 MG TABLET PO SCH (12:02)
[2018-07-28 12:18] VITALS: BP 92/56
[2018-07-28] MEDS: ONDANSETRON PF 4 MG/2 ML VIAL. IV PRN (12:32)
[2018-07-28] MEDS: VANCOMYCIN PER PHARMACY MC PRN (12:55)
--- NOTE | 2018-07-28 14:34 | PDOC2 ---
CONSULT Date of Consult Date of Consult DATE: 07/28/18 TIME: 14:20 Reason for Consult Reason for Consult: ESRD TTS Source Source: Chart review, Patient History of Present Illness Reason for Visit: Pt is a 48 year old AA female w/ PMHx ESRD (previously failed renal transplant 2010, then on PD in 2015, now on HD with 4 failed grafts in bilateral UE) who presents to ED with complaints of increased swelling and warmth to right leg, shortness of breath, and rapid heart beat x2 days. She also notes left axillary chest pain and tightness on deep inspiration. She states she had a torn ligament in her R knee repaired here by Dr. David on 07/19/18. She went to her PCP Dr. Sinha earlier today who sent her to the ER. Pt denies any body aches , chills, or cough. She reports that she feels fatigued all over. Currently, she rates the pain in her right knee a 5/10, the pain increases with movement or palpation. She has been taking the pain medication as prescribed and states it has helped with the pain. Pt states she has been ambulatory at home with a walker. She also denies any fever. She states she has grafts in both arms- she has noticed Rt arm swelling. Graft has not been used since 2010 since her Transplant . No pain Past Medical History Cardiovascular: No pertinent hx Pulmonary: No pertinent hx GI: No pertinent hx Heme/Onc: Other Hepatobiliary: No pertinent hx Psych: No pertinent hx Rheumatologic: No pertinent hx Infectious disease: No pertinent hx Renal/: Chronic renal failure, Other Endocrine: No pertinent hx, Hyperparathyroidism Past Surgical History Past Surgical History: Other (open right quadriceps repair 07/19/2018) Family History Family History: Hypertension Social History ALCOHOL: none Drugs: None Current Medications Current Medications Current Medications Morphine Sulfate (Morphine Sulfate) 4 mg 1X ONCE IV Last administered on at 18:46; Start 07/27/18 at 18:15; Stop 07/27/18 at 21:05; Status DC Morphine Sulfate (Morphine Sulfate) 4 mg 1X ONCE IV ; Start 07/27/18 at 18:45; Stop 07/27/18 at 21:05; Status DC Ondansetron HCl (Zofran) 4 mg 1X ONCE IV Last administered on 07/27/18at 18:46; Start 07/27/18 at 18:45; Stop 07/27/18 at 18:46; Status DC Heparin Sodium (Porcine) (Heparin Sodium) 6,200 unit 1X ONCE IV Last administered on 07/27/18at 19:44; Start 07/27/18 at 19:15; Stop 07/27/18 at 22:12; Status DC Heparin Sodium/ Dextrose 500 ml @ 24.6 mls/hr CONT PRN IV SEE I/O RECORD Last administered on 07/27/18at 19:43; Start 07/27/18 at 19:15; Stop 07/27/18 at 22:12; Status DC Heparin Sodium (Porcine) (Heparin Sodium) 2,300 unit PRN Q6HRS PRN IV FOR UFH LEVEL LESS THAN 0.2; Start 07/27/18 at 19:15; Stop 07/27/18 at 22:12; Status DC Heparin Sodium (Porcine) (Heparin Sodium) 1,150 unit PRN Q6HRS PRN IV FOR UFH LEVEL 0.2 - 0.29; Start 07/27/18 at 19:15; Stop 07/27/18 at 22:12; Status DC Aspirin (Abdirahman Aspirin) 325 mg DAILY PO Last administered on 07/28/18 12:02; Start 07/28/18 at 09:00 Cinacalcet (Sensipar) 30 mg DAILY PO Last administered on 07/28/18at 12:02; Start 07/28/18 at 09:00 Vitamin D (Vitamin D3) 1,000 unit DAILY PO Last administered on 07/28/18 12:02 ; Start 07/28/18 at 09:00 Vitamin B Complex/ Vitamin C (Robina-Shea) 1 tab DAILY PO Last administered on 07/28/18at 12:02; Start 07/28/18 at 09:00 Calcium Acetate (Phoslo) 1,334 mg TIDWMEALS PO Last administered on 07/28/18 12 :02; Start 07/28/18 at 08:00 Fentanyl Citrate (Fentanyl 2ml Vial) 25 mcg PRN Q4HRS PRN IV MODERATE PAIN; Start 07/27/18 at 21:15 Acetaminophen/ Hydrocodone Bitart (Lortab 7.5/325) 1 tab PRN Q6HRS PRN PO MODERATE PAIN Last administered on 07/28/18at 04:08; Start 07/27/18 at 21:15 Cefepime HCl (Maxipime) 1 gm Q24H IVP Last administered on 07/27/18at 22:54; Start 07/27/18 at 22:30 Vancomycin HCl (Vanco Per Pharmacy) 1 each PRN DAILY PRN MC SEE COMMENTS Last administered on 07/28/18at 12:55; Start 07/27/18 at 22:15 Vancomycin HCl 250 ml @ 250 mls/hr 1X ONCE IV ; Start 07/27/18 at 22:30; Stop 07/27/18 at 23:29; Status Cancel Vancomycin HCl 1 gm/Sodium Chloride 250 ml @ 250 mls/hr ONCE ONCE IV Last administered on 07/27/18at 22:54; Start 07/27/18 at 22:30; Stop 07/27/18 at 23:29; Status DC Vancomycin HCl (Vancomycin Random Level) 1 each 1X ONCE MC ; Start 07/29/18 at 23:00; Stop 07/29/18 at 23:00; Status DC Sodium Chloride 1,000 ml @ 1,000 mls/hr Q1H PRN IV hypotension; Start 07/28/18 at 07:43; Stop 07/28/18 at 13:42; Status DC Albumin Human 200 ml @ 200 mls/hr 1X PRN PRN IV Hypotension; Start 07/28/18 at 07:45; Stop 07/28/18 at 13:44; Status DC Acetaminophen (Tylenol) 500 mg 1X PRN PRN PO MILD PAIN / TEMP; Start 07/28/18 at 07:45; Stop 07/29/18 at 07:44 Diphenhydramine HCl (Benadryl) 25 mg 1X PRN PRN IV ITCHING; Start 07/28/18 at 07 :45; Stop 07/29/18 at 07:44 Diphenhydramine HCl (Benadryl) 25 mg 1X PRN PRN IV ITCHING; Start 07/28/18 at 07 :45; Stop 07/29/18 at 07:44 Sodium Chloride (Normal Saline Flush) 10 ml 1X PRN PRN IV AP catheter pack; Start 07/28/18 at 07:45; Stop 07/29/18 at 07:44 Sodium Chloride (Normal Saline Flush) 10 ml 1X PRN PRN IV LINEN AIDE catheter pack; Start 07/28/18 at 07:45; Stop 07/29/18 at 07:44 Sodium Chloride 1,000 ml @ 400 mls/hr Q2H30M PRN IV PATENCY; Start 07/28/18 at 07:43; Stop 07/28/18 at 19:42 Info (PHARMACY MONITORING -- do not chart) 1 each PRN DAILY PRN MC SEE COMMENTS ; Start 07/28/18 at 07:45 Ondansetron HCl (Zofran) 4 mg PRN Q6HRS PRN IV NAUSEA/VOMITING Last administered on 07/28/18at 12:32; Start 07/28/18 at 12:30 Vancomycin HCl (Vancomycin Random Level) 1 each 1X ONCE MC ; Start 07/29/18 at 06:00; Stop 07/29/18 at 06:01 Active Scripts Active Percocet 10-325 Mg Tablet (Oxycodone/Acetaminophen) 1 Each Tablet 1-2 Tab PO PRN Q4HRS PRN 14 Days Aspirin 325 Mg Tablet 325 Mg PO DAILY MDD 325 mg Take on aspirin 325 mg daily for 30 days [Calcium Acetate] 667 MG Capsule 1,334 Mg PO TIDWMEALS 30 Days Reported Robina-Shea Rx Tablet (Vit B Cmplx 3/Fa/Vit C/Biotin) 1 Each Tablet 1 Each PO DAILY Vitamin D (Cholecalciferol (Vitamin D3)) 1,000 Unit Capsule 1 Cap PO DAILY Sensipar (Cinacalcet Hcl) 30 Mg Tablet 1 Tab PO DAILY Allergies Allergies: Coded Allergies: No Known Drug Allergies (Unverified , 07/19/18) ROS Review of System As per HPI Physical Exam Physical Exam General: NAD HEENT: PERRLA Neck Supple Lungs: Other (Bibasilar crackles) Heart: S1S2, RRR, no gallops, no murmurs Abdomen: Normal bowel sounds, Soft, No tenderness, No hepatosplenomegaly, No masses Extremities: No edema, Right knee swelling s/p surgery Skin: Right chest wall HD catheter clean) Neuro: Neuro Normal No miguel Vital Signs Vital Signs Date Time Temp Pulse Resp B/P (MAP) Pulse Ox O2 Delivery O2 Flow Rate FiO2 07/28/18 12:18 98.1 99 18 92/56 (68) 99 Room Air 98.1 Assessment & Plan ESRD- On HD TTS Sen on HD today, tolerated well Continue as ordered , 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 Access Rt TDC Has long standing Graft both arms Rt arm swelling+, Will get US Recent Rt Knee surgery Shortness of breath - yoder as per primary Extra Tx tomorrow for UF Labs Labs Laboratory Tests Test 07/27/18 16:55 07/28/18 03:05 07/28/18 03:25 07/28/18 08:12 White Blood Count 8.4 x10^3/uL (4.0-11.0) Red Blood Count 3.05 x10^6/uL (3.50-5.40) Hemoglobin 9.5 g/dL (12.0-15.5) Hematocrit 29.6 % (36.0-47.0) Mean Corpuscular Volume 97 fL (79-100) Mean Corpuscular Hemoglobin 31 pg (25-35) Mean Corpuscular Hemoglobin Concent 32 g/dL (31-37) Red Cell Distribution Width 16.0 % (11.5-14.5) Platelet Count 259 x10^3/uL (140-400) Neutrophils (%) (Auto) 71 % (31-73) Lymphocytes (%) (Auto) 14 % (24-48) Monocytes (%) (Auto) 9 % (0-9) Eosinophils (%) (Auto) 6 % (0-3) Basophils (%) (Auto) 1 % (0-3) Neutrophils # (Auto) 5.9 x10^3uL (1.8-7.7) Lymphocytes # (Auto) 1.2 x10^3/uL (1.0-4.8) Monocytes # (Auto) 0.7 x10^3/uL (0.0-1.1) Eosinophils # (Auto) 0.5 x10^3/uL (0.0-0.7) Basophils # (Auto) 0.1 x10^3/uL (0.0-0.2) Prothrombin Time 15.2 SEC (11.7-14.0) Prothromb Time International Ratio 1.2 (0.8-1.1) D-Dimer (Darya) 5.04 ug/mlFEU (0.00-0.50) Sodium Level 134 mmol/L (136-145) Potassium Level 4.8 mmol/L (3.5-5.1) Chloride Level 94 mmol/L (98-107) Carbon Dioxide Level 25 mmol/L (21-32) Anion Gap 15 (6-14) Blood Urea Nitrogen 70 mg/dL (7-20) 71 mg/dL (7-20) Creatinine 12.1 mg/dL (0.6-1.0) 12.5 mg/dL (0.6-1.0) Estimated GFR (Cockcroft-Gault) 4.0 3.9 BUN/Creatinine Ratio 6 (6-20) Glucose Level 101 mg/dL (70-99) Lactic Acid Level 1.5 mmol/L (0.4-2.0) Calcium Level 8.9 mg/dL (8.5-10.1) Total Bilirubin 0.4 mg/dL (0.2-1.0) Aspartate Amino Transf (AST/SGOT) 21 U/L (15-37) Alanine Aminotransferase (ALT/SGPT) 9 U/L (14-59) Alkaline Phosphatase 364 U/L (46-116) Troponin I Quantitative < 0.017 ng/mL (0.000-0.055) Total Protein 8.5 g/dL (6.4-8.2) Albumin 2.8 g/dL (3.4-5.0) Albumin/Globulin Ratio 0.5 (1.0-1.7) Serum Test, Qualitative Negative (NEG) Triglycerides Level 98 mg/dL (0-150) Cholesterol Level 119 mg/dL (0-200) LDL Cholesterol, Calculated 63 mg/dL (0-100) VLDL Cholesterol, Calculated 20 mg/dL (0-40) Non-HDL Cholesterol Calculated 83 mg/dL (0-129) HDL Cholesterol 36 mg/dL (40-60) Cholesterol/HDL Ratio 3.3 Procalcitonin 3.09 ng/mL (0.00-0.10) Urine Collection Type Unknown Urine Color Yellow Urine Clarity Clear Urine pH 7.0 Urine Specific [place] 1.010 Urine Protein 30 mg/dL (NEG-TRACE) Urine Glucose (UA) Negative mg/dL (NEG) Urine Ketones (Stick) Negative mg/dL (NEG) Urine Blood Negative (NEG) Urine Nitrite Negative (NEG) Urine Bilirubin Negative (NEG) Urine Urobilinogen Dipstick 0.2 mg/dL (0.2 mg/dL) Urine Leukocyte Esterase Trace (NEG) Urine RBC 0 /HPF (0-2) Urine WBC 1-4 /HPF (0-4) Urine Squamous Epithelial Cells Many /LPF Urine Bacteria Few /HPF (0-FEW) Laboratory Tests Test 07/27/18 16:55 07/28/18 03:05 07/28/18 03:25 07/28/18 08:12 White Blood Count 8.4 x10^3/uL (4.0-11.0) Red Blood Count 3.05 x10^6/uL (3.50-5.40) Hemoglobin 9.5 g/dL (12.0-15.5) Hematocrit 29.6 % (36.0-47.0) Mean Corpuscular Volume 97 fL (79-100) Mean Corpuscular Hemoglobin 31 pg (25-35) Mean Corpuscular Hemoglobin Concent 32 g/dL (31-37) Red Cell Distribution Width 16.0 % (11.5-14.5) Platelet Count 259 x10^3/uL (140-400) Neutrophils (%) (Auto) 71 % (31-73) Lymphocytes (%) (Auto) 14 % (24-48) Monocytes (%) (Auto) 9 % (0-9) Eosinophils (%) (Auto) 6 % (0-3) Basophils (%) (Auto) 1 % (0-3) Neutrophils # (Auto) 5.9 x10^3uL (1.8-7.7) Lymphocytes # (Auto) 1.2 x10^3/uL (1.0-4.8) Monocytes # (Auto) 0.7 x10^3/uL (0.0-1.1) Eosinophils # (Auto) 0.5 x10^3/uL (0.0-0.7) Basophils # (Auto) 0.1 x10^3/uL (0.0-0.2) Prothrombin Time 15.2 SEC (11.7-14.0) Prothromb Time International Ratio 1.2 (0.8-1.1) D-Dimer (Darya) 5.04 ug/mlFEU (0.00-0.50) Sodium Level 134 mmol/L (136-145) Potassium Level 4.8 mmol/L (3.5-5.1) Chloride Level 94 mmol/L (98-107) Carbon Dioxide Level 25 mmol/L (21-32) Anion Gap 15 (6-14) Blood Urea Nitrogen 70 mg/dL (7-20) 71 mg/dL (7-20) Creatinine 12.1 mg/dL (0.6-1.0) 12.5 mg/dL (0.6-1.0) Estimated GFR (Cockcroft-Gault) 4.0 3.9 BUN/Creatinine Ratio 6 (6-20) Glucose Level 101 mg/dL (70-99) Lactic Acid Level 1.5 mmol/L (0.4-2.0) Calcium Level 8.9 mg/dL (8.5-10.1) Total Bilirubin 0.4 mg/dL (0.2-1.0) Aspartate Amino Transf (AST/SGOT) 21 U/L (15-37) Alanine Aminotransferase (ALT/SGPT) 9 U/L (14-59) Alkaline Phosphatase 364 U/L (46-116) Troponin I Quantitative < 0.017 ng/mL (0.000-0.055) Total Protein 8.5 g/dL (6.4-8.2) Albumin 2.8 g/dL (3.4-5.0) Albumin/Globulin Ratio 0.5 (1.0-1.7) Serum Test, Qualitative Negative (NEG) Triglycerides Level 98 mg/dL (0-150) Cholesterol Level 119 mg/dL (0-200) LDL Cholesterol, Calculated 63 mg/dL (0-100) VLDL Cholesterol, Calculated 20 mg/dL (0-40) Non-HDL Cholesterol Calculated 83 mg/dL (0-129) HDL Cholesterol 36 mg/dL (40-60) Cholesterol/HDL Ratio 3.3 Procalcitonin 3.09 ng/mL (0.00-0.10) Urine Collection Type Unknown Urine Color Yellow Urine Clarity Clear Urine pH 7.0 Urine Specific [place] 1.010 Urine Protein 30 mg/dL (NEG-TRACE) Urine Glucose (UA) Negative mg/dL (NEG) Urine Ketones (Stick) Negative mg/dL (NEG) Urine Blood Negative (NEG) Urine Nitrite Negative (NEG) Urine Bilirubin Negative (NEG) Urine Urobilinogen Dipstick 0.2 mg/dL (0.2 mg/dL) Urine Leukocyte Esterase Trace (NEG) Urine RBC 0 /HPF (0-2) Urine WBC 1-4 /HPF (0-4) Urine Squamous Epithelial Cells Many /LPF Urine Bacteria Few /HPF (0-FEW) Review All relevant outside records, renal labs, imaging studies, telemetry/EKG's were reviewed. ROGELIO DENNY MD Jul 28, 2018 14:34
[2018-07-28 15:00] VITALS: BP 104/67
--- NOTE | 2018-07-28 15:04 | PDOC ---
PULMONARY PROGRESS NOTES Vitals Vital Signs Date Time Temp Pulse Resp B/P (MAP) Pulse Ox O2 Delivery O2 Flow Rate FiO2 07/28/18 12:18 98.1 99 18 92/56 (68) 99 Room Air 98.1 Lungs: Wheezing Labs Laboratory Tests Test 07/27/18 16:55 07/28/18 03:05 07/28/18 03:25 07/28/18 08:12 White Blood Count 8.4 x10^3/uL (4.0-11.0) Red Blood Count 3.05 x10^6/uL (3.50-5.40) Hemoglobin 9.5 g/dL (12.0-15.5) Hematocrit 29.6 % (36.0-47.0) Mean Corpuscular Volume 97 fL (79-100) Mean Corpuscular Hemoglobin 31 pg (25-35) Mean Corpuscular Hemoglobin Concent 32 g/dL (31-37) Red Cell Distribution Width 16.0 % (11.5-14.5) Platelet Count 259 x10^3/uL (140-400) Neutrophils (%) (Auto) 71 % (31-73) Lymphocytes (%) (Auto) 14 % (24-48) Monocytes (%) (Auto) 9 % (0-9) Eosinophils (%) (Auto) 6 % (0-3) Basophils (%) (Auto) 1 % (0-3) Neutrophils # (Auto) 5.9 x10^3uL (1.8-7.7) Lymphocytes # (Auto) 1.2 x10^3/uL (1.0-4.8) Monocytes # (Auto) 0.7 x10^3/uL (0.0-1.1) Eosinophils # (Auto) 0.5 x10^3/uL (0.0-0.7) Basophils # (Auto) 0.1 x10^3/uL (0.0-0.2) Prothrombin Time 15.2 SEC (11.7-14.0) Prothromb Time International Ratio 1.2 (0.8-1.1) D-Dimer (Darya) 5.04 ug/mlFEU (0.00-0.50) Sodium Level 134 mmol/L (136-145) Potassium Level 4.8 mmol/L (3.5-5.1) Chloride Level 94 mmol/L (98-107) Carbon Dioxide Level 25 mmol/L (21-32) Anion Gap 15 (6-14) Blood Urea Nitrogen 70 mg/dL (7-20) 71 mg/dL (7-20) Creatinine 12.1 mg/dL (0.6-1.0) 12.5 mg/dL (0.6-1.0) Estimated GFR (Cockcroft-Gault) 4.0 3.9 BUN/Creatinine Ratio 6 (6-20) Glucose Level 101 mg/dL (70-99) Lactic Acid Level 1.5 mmol/L (0.4-2.0) Calcium Level 8.9 mg/dL (8.5-10.1) Total Bilirubin 0.4 mg/dL (0.2-1.0) Aspartate Amino Transf (AST/SGOT) 21 U/L (15-37) Alanine Aminotransferase (ALT/SGPT) 9 U/L (14-59) Alkaline Phosphatase 364 U/L (46-116) Troponin I Quantitative < 0.017 ng/mL (0.000-0.055) Total Protein 8.5 g/dL (6.4-8.2) Albumin 2.8 g/dL (3.4-5.0) Albumin/Globulin Ratio 0.5 (1.0-1.7) Serum Test, Qualitative Negative (NEG) Triglycerides Level 98 mg/dL (0-150) Cholesterol Level 119 mg/dL (0-200) LDL Cholesterol, Calculated 63 mg/dL (0-100) VLDL Cholesterol, Calculated 20 mg/dL (0-40) Non-HDL Cholesterol Calculated 83 mg/dL (0-129) HDL Cholesterol 36 mg/dL (40-60) Cholesterol/HDL Ratio 3.3 Procalcitonin 3.09 ng/mL (0.00-0.10) Urine Collection Type Unknown Urine Color Yellow Urine Clarity Clear Urine pH 7.0 Urine Specific [place] 1.010 Urine Protein 30 mg/dL (NEG-TRACE) Urine Glucose (UA) Negative mg/dL (NEG) Urine Ketones (Stick) Negative mg/dL (NEG) Urine Blood Negative (NEG) Urine Nitrite Negative (NEG) Urine Bilirubin Negative (NEG) Urine Urobilinogen Dipstick 0.2 mg/dL (0.2 mg/dL) Urine Leukocyte Esterase Trace (NEG) Urine RBC 0 /HPF (0-2) Urine WBC 1-4 /HPF (0-4) Urine Squamous Epithelial Cells Many /LPF Urine Bacteria Few /HPF (0-FEW) Laboratory Tests Test 07/27/18 16:55 07/28/18 03:05 07/28/18 03:25 07/28/18 08:12 White Blood Count 8.4 x10^3/uL (4.0-11.0) Red Blood Count 3.05 x10^6/uL (3.50-5.40) Hemoglobin 9.5 g/dL (12.0-15.5) Hematocrit 29.6 % (36.0-47.0) Mean Corpuscular Volume 97 fL (79-100) Mean Corpuscular Hemoglobin 31 pg (25-35) Mean Corpuscular Hemoglobin Concent 32 g/dL (31-37) Red Cell Distribution Width 16.0 % (11.5-14.5) Platelet Count 259 x10^3/uL (140-400) Neutrophils (%) (Auto) 71 % (31-73) Lymphocytes (%) (Auto) 14 % (24-48) Monocytes (%) (Auto) 9 % (0-9) Eosinophils (%) (Auto) 6 % (0-3) Basophils (%) (Auto) 1 % (0-3) Neutrophils # (Auto) 5.9 x10^3uL (1.8-7.7) Lymphocytes # (Auto) 1.2 x10^3/uL (1.0-4.8) Monocytes # (Auto) 0.7 x10^3/uL (0.0-1.1) Eosinophils # (Auto) 0.5 x10^3/uL (0.0-0.7) Basophils # (Auto) 0.1 x10^3/uL (0.0-0.2) Prothrombin Time 15.2 SEC (11.7-14.0) Prothromb Time International Ratio 1.2 (0.8-1.1) D-Dimer (Darya) 5.04 ug/mlFEU (0.00-0.50) Sodium Level 134 mmol/L (136-145) Potassium Level 4.8 mmol/L (3.5-5.1) Chloride Level 94 mmol/L (98-107) Carbon Dioxide Level 25 mmol/L (21-32) Anion Gap 15 (6-14) Blood Urea Nitrogen 70 mg/dL (7-20) 71 mg/dL (7-20) Creatinine 12.1 mg/dL (0.6-1.0) 12.5 mg/dL (0.6-1.0) Estimated GFR (Cockcroft-Gault) 4.0 3.9 BUN/Creatinine Ratio 6 (6-20) Glucose Level 101 mg/dL (70-99) Lactic Acid Level 1.5 mmol/L (0.4-2.0) Calcium Level 8.9 mg/dL (8.5-10.1) Total Bilirubin 0.4 mg/dL (0.2-1.0) Aspartate Amino Transf (AST/SGOT) 21 U/L (15-37) Alanine Aminotransferase (ALT/SGPT) 9 U/L (14-59) Alkaline Phosphatase 364 U/L (46-116) Troponin I Quantitative < 0.017 ng/mL (0.000-0.055) Total Protein 8.5 g/dL (6.4-8.2) Albumin 2.8 g/dL (3.4-5.0) Albumin/Globulin Ratio 0.5 (1.0-1.7) Serum Test, Qualitative Negative (NEG) Triglycerides Level 98 mg/dL (0-150) Cholesterol Level 119 mg/dL (0-200) LDL Cholesterol, Calculated 63 mg/dL (0-100) VLDL Cholesterol, Calculated 20 mg/dL (0-40) Non-HDL Cholesterol Calculated 83 mg/dL (0-129) HDL Cholesterol 36 mg/dL (40-60) Cholesterol/HDL Ratio 3.3 Procalcitonin 3.09 ng/mL (0.00-0.10) Urine Collection Type Unknown Urine Color Yellow Urine Clarity Clear Urine pH 7.0 Urine Specific [place] 1.010 Urine Protein 30 mg/dL (NEG-TRACE) Urine Glucose (UA) Negative mg/dL (NEG) Urine Ketones (Stick) Negative mg/dL (NEG) Urine Blood Negative (NEG) Urine Nitrite Negative (NEG) Urine Bilirubin Negative (NEG) Urine Urobilinogen Dipstick 0.2 mg/dL (0.2 mg/dL) Urine Leukocyte Esterase Trace (NEG) Urine RBC 0 /HPF (0-2) Urine WBC 1-4 /HPF (0-4) Urine Squamous Epithelial Cells Many /LPF Urine Bacteria Few /HPF (0-FEW) Medications Active Scripts Medications Dose Route/Sig Max Daily Dose Days Date Category Dose Instructions Percocet 10-325 Mg Tablet (Oxycodone/Acetaminophen) 1 Each Tablet 1-2 Tab PO PRN Q4HRS PRN 14 07/21/18 Rx Aspirin 325 Mg Tablet 325 Mg PO DAILY MDD 325 mg 07/21/18 Rx Take on aspirin 325 mg daily for 30 days [Calcium Acetate] 667 MG Capsule 1,334 Mg PO TIDWMEALS 30 05/03/18 Rx Robina-Shea Rx Tablet (Vit B Cmplx 3/Fa/Vit C/Biotin) 1 Each Tablet 1 Each PO DAILY 05/01/18 Reported Vitamin D (Cholecalciferol (Vitamin D3)) 1,000 Unit Capsule 1 Cap PO DAILY 05/01/18 Reported Sensipar (Cinacalcet Hcl) 30 Mg Tablet 1 Tab PO DAILY 05/01/18 Reported Impression . PNEUMONIA WITH PLEURISY SEE ORDERS THANKS NIA HOPSON MD Jul 28, 2018 15:04
[2018-07-28] MEDS ORDERED: KETOROLAC 15 MG/ML VIAL. IV PRN (15:15)
--- NOTE | 2018-07-28 15:26 | NUR ---
SS following for discharge planning. SS reviewed pt chart. Pt is from home and is currently on room air. No discharge needs noted at this time. SS will continue to follow for pending discharge needs.
--- NOTE | 2018-07-28 16:13 | RAD ---
CT of the chest without contrast, 07/28/2018: HISTORY: Effusion, previous renal transplant Noncontrast scans were obtained with multiplanar reconstructions produced. There is moderate atelectasis and consolidation in both lung bases. There is dominant involvement of the lower lobes and to a lesser degree the inferior lingula and right middle lobe. There is a small amount of associated pleural fluid. The upper lung murphy are clear. No interlobular septal thickening is seen. A right jugular dialysis type catheter extends into the superior aspect of the right atrium. The heart is not enlarged. There is mild calcific plaquing of the thoracic aorta minimal coronary artery calcification is present. Several small mediastinal lymph nodes are seen without definite pathologic enlargement. The upper end of a vascular stent is evident in the left subclavian vein region. The visualized portions of both kidneys are atrophic with several small cysts and calcifications noted. Sclerotic changes in the bones are compatible with renal osteodystrophy. There is also moderate multilevel degenerative disc disease. IMPRESSION: 1. Moderate streaky bibasilar atelectasis with small bilateral pleural effusions. 2. Chronic findings as described above. PQRS Compliance Statement: One or more of the following individualized dose reduction techniques were utilized for this examination: 1. Automated exposure control 2. Adjustment of the mA and/or kV according to patient size 3. Use of iterative reconstruction technique Electronically signed by: Ruel Martinez MD (07/28/2018 4:10 PM) [facility]
[2018-07-28 19:27] VITALS: BP 107/59
[2018-07-28] MEDS ORDERED: FUROSEMIDE 40 MG/4 ML VIAL. IVP ONE (20:45)
[2018-07-28] MEDS ORDERED: POTASSIUM CHLORIDE 10 MEQ TABLET.ER. PO SCH (21:00)
[2018-07-28] MEDS: CEFEPIME HCL IV Push 1 GM VIAL. IVP SCH (22:12)
[2018-07-28 22:48] VITALS: BP 96/57
[2018-07-29] MEDS: HYDROcodone/APAP 7.5/325MG 1 TAB TABLET PO PRN ×2 (01:12→07:43)
--- NOTE | 2018-07-29 03:22 | CONS ---
DATE OF CONSULTATION: 07/28/2018 ATTENDING PHYSICIAN: Dr. Thornton REASON FOR CONSULTATION: The patient is seen in pulmonary consultation at the request of Dr. Thornton for shortness of air, pleuritic type of discomfort. HISTORY OF PRESENT ILLNESS: The patient is a 48-year-old that recently had surgery on her right knee approximately 2-3 weeks ago, presented with increasing shortness of breath, pleuritic type of discomfort on the left side for 2 days. She had a chest x-ray, which was reviewed by me. There are bilateral chronic changes suspected, with effusions bilaterally. The patient was worked up for PE. She had a V/Q scan, which I reviewed. It revealed no significant unmatched perfusion defects. There was right lower extremity venous Doppler, which was negative. The patient denies fever, chills, night sweats. She is a lifetime nonsmoker. No history of asthma, DVT or pulmonary embolism. PAST MEDICAL HISTORY: 1. End-stage renal disease, on hemodialysis. At one point, she had a kidney transplant, which failed. 2. Recent knee arthroplasty. 3. No history of tobacco use. 4. Hyperthyroidism. PAST SURGICAL HISTORY: Recent right knee arthroscopic surgery. ALLERGIES: No known drug allergies. CURRENT MEDICATIONS: List was reviewed. REVIEW OF SYSTEMS: As indicated above, otherwise, a 10-point system was reviewed and negative. HOME MEDICATIONS: List was reviewed. SOCIAL HISTORY: She is a lifetime nonsmoker, denies any alcohol intake. PHYSICAL EXAMINATION: VITAL SIGNS: The patient is in no significant respiratory distress, on room air saturation 92%. HEENT: Eyes, the sclerae were nonicteric. NECK: Jugular venous distention was not elevated. No lymphadenopathy. CHEST: Full expansion. LUNGS: Crackles in the bases. No wheezes. CARDIOVASCULAR: Regular rate and rhythm with S1, S2. No S3. No rubs. ABDOMEN: Soft, nontender, nondistended. EXTREMITIES: No clubbing, cyanosis or edema. NEUROLOGIC: The patient was awake, alert, following commands. A detailed neuro exam is not performed. LABORATORY DATA: White count is normal. Hemoglobin and hematocrit were noted. Procalcitonin was elevated at 3.09. Electrolytes: Sodium was low. Albumin was low. Chest x-ray as indicated above. IMPRESSION: 1. Progressive dyspnea, suspect secondary to pleurisy, possible pneumonia with pleurisy. 2. Abnormal chest x-ray revealed bilateral effusion with chronic changes. 3. Negative V/Q scan. 4. Negative venous Dopplers. 5. End-stage renal disease, on hemodialysis. 6. Status post quadriceps rupture repair. Plan: We will obtain CT chest to better delineate the infiltrates and the effusions. 7. Treatment for pleurisy and pneumonia. 8. I will make further recommendation depending on clinical response. 9. Discontinue anticoagulation, already done. I do appreciate the privilege in sharing in the patient's care. NIA HOPSON MD DR: DANYELLE/dre JOB#: [id number] / [id number]
[2018-07-29 03:59] VITALS: BP 98/61
[2018-07-29 05:09] LABS: ALBUMIN 2.4 g/dL (3.4-5.0); CALCIUM 8.2 mg/dL (8.5-10.1); CREATININE 8.6 mg/dL (0.6-1.0); POTASSIUM 4.6 mmol/L (3.5-5.1)
[2018-07-29] MEDS ORDERED: VANCOMYCIN RANDOM LEVEL. MC ONE ×2 (06:00→23:00)
[2018-07-29 07:00] VITALS: BP 109/70
--- NOTE | 2018-07-29 07:42 | PDOC ---
PROGRESS NOTES Chief Complaint Chief Complaint A/P: Shortness of breath - low prob VQ, I will stop heparin GTT. Needs IS. will treat for her interstitial pattern on CXR as pneumonia for now, will need to consider pulm consultation Chest pain - this seems pleuritic, will change her pain meds for renal clearance to fentanyl and hydrocodone. D/c oxycodone and morphine orders. 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 Consult nephro H/o renal transplant - failed, not on immunosuppressants any longer Right knee swelling - expected post-op. Will call Dr. David to let him know his patient is in house for an unrelated issue. Cont PT FEN - renal diet PPX - heparin FULL CODE Inpatient for shortness of breath, may need to stay at least 2 midnights to resolve the etiology History of Present Illness History of Present Illness Ms Desai is a 48 year old AA female w/ PMHx ESRD (previously failed renal transplant 2010, then on PD in 2016, now on HD with 4 failed grafts in bilateral UE) who presents to ED with complaints of increased swelling and warmth to right leg, shortness of breath, and rapid heart beat x2 days. She also noted left axillary chest pain and tightness on deep inspiration. She states she had a torn ligament in her R knee repaired here by Dr. David on . She went to her PCP Dr. Sinha who sent her to the ER. Pt denies any body aches, chills, or cough. She reports that she feels fatigued all over. Currently, she rates the pain in her right knee a 5/10, the pain increases with movement or palpation. She has been taking the pain medication as prescribed and states it has helped with the pain. Pt states she has been ambulatory at home with a walker. She was started on heparin GTT for presumptive PE, unable to do CTPA due to no good IV access and hospital protocol prohibiting use of her dialysis catheter, so underwent VQ scan which was low probability with no mismatch [place] better overnight after starting antibiotics and nebulizers. Knee is stiff, swollen, painful. Almost no left chest wall pain and shortness of breath much better. Seen on dialysis today. Plan: Cont antibiotics. She is improving so much I imagine she can be discharged on levaquin today US RUE - 1. No significant stenosis or occlusion of the major right upper extremity arteries. 2. Occlusion of the right upper arm AV fistula. CT Chest - There is moderate atelectasis and consolidation in both lung bases. There is dominant involvement of the lower lobes and to a lesser degree the inferior lingula and right middle lobe. There is a small amount of associated pleural fluid. The upper lung murphy are clear. No interlobular septal thickening is seen. A right jugular dialysis type catheter extends into the superior aspect of the right atrium. The heart is not enlarged. There is mild calcific plaquing of the thoracic aorta minimal coronary artery calcification is present. Several small mediastinal lymph nodes are seen without definite pathologic enlargement. The upper end of a vascular stent is evident in the left subclavian vein region. The visualized portions of both kidneys are atrophic with several small cysts and calcifications noted. Sclerotic changes in the bones are compatible with renal osteodystrophy. There is also moderate multilevel degenerative disc disease. IMPRESSION: 1. Moderate streaky bibasilar atelectasis with small bilateral pleural effusions. 2. Chronic findings as described above. Vitals Vitals Vital Signs Date Time Temp Pulse Resp B/P (MAP) Pulse Ox O2 Delivery O2 Flow Rate FiO2 07/29/18 03:59 98.1 90 16 98/61 (73) 96 Room Air 98.1 Physical Exam General: Alert, Oriented X3, No acute distress Heart: Regular rate Lungs: Wheezing Abdomen: Soft, No tenderness Extremities: No edema, Normal pulses Skin: Other (Right chest wall HD catheter clean) Labs LABS Laboratory Tests Test 07/28/18 08:12 07/29/18 04:00 Urine Collection Type Unknown Urine Color Yellow Urine Clarity Clear Urine pH 7.0 Urine Specific [place] 1.010 Urine Protein 30 mg/dL (NEG-TRACE) Urine Glucose (UA) Negative mg/dL (NEG) Urine Ketones (Stick) Negative mg/dL (NEG) Urine Blood Negative (NEG) Urine Nitrite Negative (NEG) Urine Bilirubin Negative (NEG) Urine Urobilinogen Dipstick 0.2 mg/dL (0.2 mg/dL) Urine Leukocyte Esterase Trace (NEG) Urine RBC 0 /HPF (0-2) Urine WBC 1-4 /HPF (0-4) Urine Squamous Epithelial Cells Many /LPF Urine Bacteria Few /HPF (0-FEW) Sodium Level 138 mmol/L (136-145) Potassium Level 4.6 mmol/L (3.5-5.1) Chloride Level 98 mmol/L (98-107) Carbon Dioxide Level 27 mmol/L (21-32) Anion Gap 13 (6-14) Blood Urea Nitrogen 44 mg/dL (7-20) Creatinine 8.6 mg/dL (0.6-1.0) Estimated GFR (Cockcroft-Gault) 6.0 Glucose Level 76 mg/dL (70-99) Calcium Level 8.2 mg/dL (8.5-10.1) Phosphorus Level 6.0 mg/dL (2.6-4.7) Albumin 2.4 g/dL (3.4-5.0) Random Vancomycin Level 12.6 mcg/mL Comment Review of Relevant I have reviewed the following items chioma (where applicable) has been applied. Labs Laboratory Tests Test 07/27/18 16:55 07/28/18 03:05 07/28/18 03:25 07/28/18 08:12 White Blood Count 8.4 x10^3/uL (4.0-11.0) Red Blood Count 3.05 x10^6/uL (3.50-5.40) Hemoglobin 9.5 g/dL (12.0-15.5) Hematocrit 29.6 % (36.0-47.0) Mean Corpuscular Volume 97 fL (79-100) Mean Corpuscular Hemoglobin 31 pg (25-35) Mean Corpuscular Hemoglobin Concent 32 g/dL (31-37) Red Cell Distribution Width 16.0 % (11.5-14.5) Platelet Count 259 x10^3/uL (140-400) Neutrophils (%) (Auto) 71 % (31-73) Lymphocytes (%) (Auto) 14 % (24-48) Monocytes (%) (Auto) 9 % (0-9) Eosinophils (%) (Auto) 6 % (0-3) Basophils (%) (Auto) 1 % (0-3) Neutrophils # (Auto) 5.9 x10^3uL (1.8-7.7) Lymphocytes # (Auto) 1.2 x10^3/uL (1.0-4.8) Monocytes # (Auto) 0.7 x10^3/uL (0.0-1.1) Eosinophils # (Auto) 0.5 x10^3/uL (0.0-0.7) Basophils # (Auto) 0.1 x10^3/uL (0.0-0.2) Prothrombin Time 15.2 SEC (11.7-14.0) Prothromb Time International Ratio 1.2 (0.8-1.1) D-Dimer (Darya) 5.04 ug/mlFEU (0.00-0.50) Sodium Level 134 mmol/L (136-145) Potassium Level 4.8 mmol/L (3.5-5.1) Chloride Level 94 mmol/L (98-107) Carbon Dioxide Level 25 mmol/L (21-32) Anion Gap 15 (6-14) Blood Urea Nitrogen 70 mg/dL (7-20) 71 mg/dL (7-20) Creatinine 12.1 mg/dL (0.6-1.0) 12.5 mg/dL (0.6-1.0) Estimated GFR (Cockcroft-Gault) 4.0 3.9 BUN/Creatinine Ratio 6 (6-20) Glucose Level 101 mg/dL (70-99) Lactic Acid Level 1.5 mmol/L (0.4-2.0) Calcium Level 8.9 mg/dL (8.5-10.1) Total Bilirubin 0.4 mg/dL (0.2-1.0) Aspartate Amino Transf (AST/SGOT) 21 U/L (15-37) Alanine Aminotransferase (ALT/SGPT) 9 U/L (14-59) Alkaline Phosphatase 364 U/L (46-116) Troponin I Quantitative < 0.017 ng/mL (0.000-0.055) Total Protein 8.5 g/dL (6.4-8.2) Albumin 2.8 g/dL (3.4-5.0) Albumin/Globulin Ratio 0.5 (1.0-1.7) Serum Test, Qualitative Negative (NEG) Triglycerides Level 98 mg/dL (0-150) Cholesterol Level 119 mg/dL (0-200) LDL Cholesterol, Calculated 63 mg/dL (0-100) VLDL Cholesterol, Calculated 20 mg/dL (0-40) Non-HDL Cholesterol Calculated 83 mg/dL (0-129) HDL Cholesterol 36 mg/dL (40-60) Cholesterol/HDL Ratio 3.3 Procalcitonin 3.09 ng/mL (0.00-0.10) Urine Collection Type Unknown Urine Color Yellow Urine Clarity Clear Urine pH 7.0 Urine Specific [place] 1.010 Urine Protein 30 mg/dL (NEG-TRACE) Urine Glucose (UA) Negative mg/dL (NEG) Urine Ketones (Stick) Negative mg/dL (NEG) Urine Blood Negative (NEG) Urine Nitrite Negative (NEG) Urine Bilirubin Negative (NEG) Urine Urobilinogen Dipstick 0.2 mg/dL (0.2 mg/dL) Urine Leukocyte Esterase Trace (NEG) Urine RBC 0 /HPF (0-2) Urine WBC 1-4 /HPF (0-4) Urine Squamous Epithelial Cells Many /LPF Urine Bacteria Few /HPF (0-FEW) Test 07/29/18 04:00 Sodium Level 138 mmol/L (136-145) Potassium Level 4.6 mmol/L (3.5-5.1) Chloride Level 98 mmol/L (98-107) Carbon Dioxide Level 27 mmol/L (21-32) Anion Gap 13 (6-14) Blood Urea Nitrogen 44 mg/dL (7-20) Creatinine 8.6 mg/dL (0.6-1.0) Estimated GFR (Cockcroft-Gault) 6.0 Glucose Level 76 mg/dL (70-99) Calcium Level 8.2 mg/dL (8.5-10.1) Phosphorus Level 6.0 mg/dL (2.6-4.7) Albumin 2.4 g/dL (3.4-5.0) Random Vancomycin Level 12.6 mcg/mL Laboratory Tests Test 07/28/18 08:12 07/29/18 04:00 Urine Collection Type Unknown Urine Color Yellow Urine Clarity Clear Urine pH 7.0 Urine Specific [place] 1.010 Urine Protein 30 mg/dL (NEG-TRACE) Urine Glucose (UA) Negative mg/dL (NEG) Urine Ketones (Stick) Negative mg/dL (NEG) Urine Blood Negative (NEG) Urine Nitrite Negative (NEG) Urine Bilirubin Negative (NEG) Urine Urobilinogen Dipstick 0.2 mg/dL (0.2 mg/dL) Urine Leukocyte Esterase Trace (NEG) Urine RBC 0 /HPF (0-2) Urine WBC 1-4 /HPF (0-4) Urine Squamous Epithelial Cells Many /LPF Urine Bacteria Few /HPF (0-FEW) Sodium Level 138 mmol/L (136-145) Potassium Level 4.6 mmol/L (3.5-5.1) Chloride Level 98 mmol/L (98-107) Carbon Dioxide Level 27 mmol/L (21-32) Anion Gap 13 (6-14) Blood Urea Nitrogen 44 mg/dL (7-20) Creatinine 8.6 mg/dL (0.6-1.0) Estimated GFR (Cockcroft-Gault) 6.0 Glucose Level 76 mg/dL (70-99) Calcium Level 8.2 mg/dL (8.5-10.1) Phosphorus Level 6.0 mg/dL (2.6-4.7) Albumin 2.4 g/dL (3.4-5.0) Random Vancomycin Level 12.6 mcg/mL Microbiology 07/27/18 Blood Culture - Preliminary, Resulted NO GROWTH AFTER 1 DAY Medications Current Medications Morphine Sulfate (Morphine Sulfate) 4 mg 1X ONCE IV Last administered on at 18:46; Start 07/27/18 at 18:15; Stop 07/27/18 at 21:05; Status DC Morphine Sulfate (Morphine Sulfate) 4 mg 1X ONCE IV ; Start 07/27/18 at 18:45; Stop 07/27/18 at 21:05; Status DC Ondansetron HCl (Zofran) 4 mg 1X ONCE IV Last administered on 07/27/18at 18:46; Start 07/27/18 at 18:45; Stop 07/27/18 at 18:46; Status DC Heparin Sodium (Porcine) (Heparin Sodium) 6,200 unit 1X ONCE IV Last administered on 07/27/18at 19:44; Start 07/27/18 at 19:15; Stop 07/27/18 at 22:12; Status DC Heparin Sodium/ Dextrose 500 ml @ 24.6 mls/hr CONT PRN IV SEE I/O RECORD Last administered on 07/27/18at 19:43; Start 07/27/18 at 19:15; Stop 07/27/18 at 22:12; Status DC Heparin Sodium (Porcine) (Heparin Sodium) 2,300 unit PRN Q6HRS PRN IV FOR UFH LEVEL LESS THAN 0.2; Start 07/27/18 at 19:15; Stop 07/27/18 at 22:12; Status DC Heparin Sodium (Porcine) (Heparin Sodium) 1,150 unit PRN Q6HRS PRN IV FOR UFH LEVEL 0.2 - 0.29; Start 07/27/18 at 19:15; Stop 07/27/18 at 22:12; Status DC Aspirin (Abdirahman Aspirin) 325 mg DAILY PO Last administered on 07/28/18 12:02; Start 07/28/18 at 09:00 Cinacalcet (Sensipar) 30 mg DAILY PO Last administered on 07/28/18 12:02; Start 07/28/18 at 09:00 Vitamin D (Vitamin D3) 1,000 unit DAILY PO Last administered on 07/28/18 12:02 ; Start 07/28/18 at 09:00 Vitamin B Complex/ Vitamin C (Robina-Shea) 1 tab DAILY PO Last administered on 12:02; Start 07/28/18 at 09:00 Calcium Acetate (Phoslo) 1,334 mg TIDWMEALS PO Last administered on 07/28/18 17 :23; Start 07/28/18 at 08:00 Fentanyl Citrate (Fentanyl 2ml Vial) 25 mcg PRN Q4HRS PRN IV MODERATE PAIN; Start 07/27/18 at 21:15 Acetaminophen/ Hydrocodone Bitart (Lortab 7.5/325) 1 tab PRN Q6HRS PRN PO MODERATE PAIN Last administered on 07/29/18 01:12; Start 07/27/18 at 21:15 Cefepime HCl (Maxipime) 1 gm Q24H IVP Last administered on 07/28/18 22:12; Start 07/27/18 at 22:30 Vancomycin HCl (Vanco Per Pharmacy) 1 each PRN DAILY PRN MC SEE COMMENTS Last administered on 07/28/18at 12:55; Start 07/27/18 at 22:15 Vancomycin HCl 250 ml @ 250 mls/hr 1X ONCE IV ; Start 07/27/18 at 22:30; Stop 07/27/18 at 23:29; Status Cancel Vancomycin HCl 1 gm/Sodium Chloride 250 ml @ 250 mls/hr ONCE ONCE IV Last administered on 07/27/18at 22:54; Start 07/27/18 at 22:30; Stop 07/27/18 at 23:29; Status DC Vancomycin HCl (Vancomycin Random Level) 1 each 1X ONCE MC ; Start 07/29/18 at 23:00; Stop 07/29/18 at 23:00; Status DC Sodium Chloride 1,000 ml @ 1,000 mls/hr Q1H PRN IV hypotension; Start 07/28/18 at 07:43; Stop 07/28/18 at 13:42; Status DC Albumin Human 200 ml @ 200 mls/hr 1X PRN PRN IV Hypotension; Start 07/28/18 at 07:45; Stop 07/28/18 at 13:44; Status DC Acetaminophen (Tylenol) 500 mg 1X PRN PRN PO MILD PAIN / TEMP; Start 07/28/18 at 07:45; Stop 07/29/18 at 07:44 Diphenhydramine HCl (Benadryl) 25 mg 1X PRN PRN IV ITCHING; Start 07/28/18 at 07 :45; Stop 07/29/18 at 07:44 Diphenhydramine HCl (Benadryl) 25 mg 1X PRN PRN IV ITCHING; Start 07/28/18 at 07 :45; Stop 07/29/18 at 07:44 Sodium Chloride (Normal Saline Flush) 10 ml 1X PRN PRN IV AP catheter pack; Start 07/28/18 at 07:45; Stop 07/29/18 at 07:44 Sodium Chloride (Normal Saline Flush) 10 ml 1X PRN PRN IV [employer] catheter pack; Start 07/28/18 at 07:45; Stop 07/29/18 at 07:44 Sodium Chloride 1,000 ml @ 400 mls/hr Q2H30M PRN IV PATENCY; Start 07/28/18 at 07:43; Stop 07/28/18 at 19:42; Status DC Info (PHARMACY MONITORING -- do not chart) 1 each PRN DAILY PRN MC SEE COMMENTS ; Start 07/28/18 at 07:45 Ondansetron HCl (Zofran) 4 mg PRN Q6HRS PRN IV NAUSEA/VOMITING Last administered on 07/28/18at 12:32; Start 07/28/18 at 12:30 Vancomycin HCl (Vancomycin Random Level) 1 each 1X ONCE MC Last administered on 07/29/18at 05:15; Start 07/29/18 at 06:00; Stop 07/29/18 at 06:01; Status DC Ketorolac Tromethamine (Toradol 15mg Vial) 15 mg PRN Q6HRS PRN IV PAIN; Start 07/28/18 at 15:15; Stop 08/02/18 at 15:14 Furosemide (Lasix) 40 mg 1X ONCE IVP ; Start 07/28/18 at 20:45; Stop 07/28/18 at 20:46; Status Cancel Furosemide (Lasix) 20 mg BID92 IVP ; Start 07/29/18 at 09:00; Status Cancel Potassium Chloride (Klor-Con) 10 meq BID PO ; Start 07/28/18 at 21:00; Status UNV Lisinopril (Prinivil) 10 mg DAILY PO ; Start 07/29/18 at 09:00; Status UNV Active Scripts Active Percocet 10-325 Mg Tablet (Oxycodone/Acetaminophen) 1 Each Tablet 1-2 Tab PO PRN Q4HRS PRN 14 Days Aspirin 325 Mg Tablet 325 Mg PO DAILY MDD 325 mg Take on aspirin 325 mg daily for 30 days [Calcium Acetate] 667 MG Capsule 1,334 Mg PO TIDWMEALS 30 Days Reported Robina-Shea Rx Tablet (Vit B Cmplx 3/Fa/Vit C/Biotin) 1 Each Tablet 1 Each PO DAILY Vitamin D (Cholecalciferol (Vitamin D3)) 1,000 Unit Capsule 1 Cap PO DAILY Sensipar (Cinacalcet Hcl) 30 Mg Tablet 1 Tab PO DAILY Vitals/I & O Vital Sign - Last 24 Hours 07/28/18 07/28/18 07/28/18 07/28/18 08:00 12:18 15:00 19:08 Temp 98.1 98.3 98.1 98.3 Pulse 99 107 Resp 18 16 B/P (MAP) 92/56 (68) 104/67 (79) Pulse Ox 99 95 O2 Delivery Room Air Room Air Room Air Room Air 07/28/18 07/28/18 07/28/18 07/29/18 19:27 19:40 22:48 00:03 Temp 98.2 98.0 98.2 98.0 Pulse 96 99 Resp 16 16 B/P (MAP) 107/59 (75) 96/57 (70) Pulse Ox 94 96 O2 Delivery Room Air Room Air Room Air Room Air 07/29/18 07/29/18 02:12 03:59 Temp 98.1 98.1 Pulse 90 Resp 16 B/P (MAP) 98/61 (73) Pulse Ox 96 O2 Delivery Room Air Room Air Intake and Output 07/28/18 07/28/18 07/29/18 14:59 22:59 06:59 Intake Total 0 ml 460 ml Balance 0 ml 460 ml INDERJIT DURAND MD Jul 29, 2018 07:42
--- NOTE | 2018-07-29 07:43 | RAD ---
Right upper extremity arterial ultrasound, 07/28/2018: HISTORY: Right arm swelling, AV fistula Duplex evaluation of the major arteries in the right upper extremity was performed including grayscale, color-flow and spectral Doppler analysis. The right subclavian, axillary, brachial, radial and ulnar arteries are all patent. They demonstrate triphasic Doppler waveforms. No color flow is evident in the AV fistula in the medial aspect of the right upper arm. IMPRESSION: 1. No significant stenosis or occlusion of the major right upper extremity arteries. 2. Occlusion of the right upper arm AV fistula. Electronically signed by: Ruel Martinez MD (07/29/2018 7:40 AM) [facility]
[2018-07-29] MEDS: CALCIUM ACETATE 667 MG CAPSULE PO SCH ×2 (08:28→13:38)
[2018-07-29] MEDS: CHOLECALCIFEROL (VITAMIN D3) 1,000 UNIT TABLET PO SCH (08:28)
[2018-07-29] MEDS: ASPIRIN 325 MG TABLET PO SCH (08:28)
[2018-07-29] MEDS: CINACALCET HCL 30 MG TABLET PO SCH (08:28)
[2018-07-29] MEDS: FOLIC/VIT B COMP W-C (RENAL) TABLET. PO SCH (08:28)
[2018-07-29] MEDS ORDERED: IV NORMAL SALINE 1000ML BAG 1,000 ML IV PRN ×2 (08:38)
[2018-07-29] MEDS ORDERED: DIALYSIS PATIENT. MC PRN (08:45)
[2018-07-29] MEDS ORDERED: 0.9 % SODIUM CHLORIDE 10 ML DISP.SYRIN. IV PRN ×2 (08:45)
[2018-07-29] MEDS ORDERED: ALBUMIN HUMAN 25% 200 ML IV PRN (08:45)
[2018-07-29] MEDS ORDERED: diphenhydrAMINE 50 MG/ML VIAL IV PRN ×2 (08:45)
[2018-07-29] MEDS ORDERED: ACETAMINOPHEN 500 MG TABLET PO PRN (08:45)
[2018-07-29] MEDS: VANCOMYCIN PER PHARMACY MC PRN (08:59)
[2018-07-29] MEDS ORDERED: LISINOPRIL 10 MG TABLET PO SCH (09:00)
[2018-07-29] MEDS ORDERED: FUROSEMIDE 20 MG/2 ML VIAL. IVP SCH (09:00)
--- NOTE | 2018-07-29 09:02 | NUR ---
Pharmacy Vancomycin Dosing Note S:Consulted to monitor and dose vancomycin started 07/27/18. O:MARIANN LONG is a 48 year old F with Pneumonia . . Height: 5 feet, 9 inches Weight: 69.046797 kg [place] Body Weight: 66.20 Adjusted Body Weight: 68.20 Dosing Weight: Actual Other Antibiotics: CEFEPIME 1GM IV Q24HRS LABS: Last BUN: 44 Last Creatinine: 8.6 Creatinine Clearance: HD TUTHSA mL/min Last WBC: 8.4 Last Procalcitonin: 3.09 ESRD HD Tmax (past 24 hours): 98.1 Microbiology: 07/29 BCX NGTD I/O: 696/375 Drug Levels: Last Random level: 12.6 on 07/29/18 at 0400 Last dose given 07/27/18 at 2254 Vancomycin Dosing: Loading Dose: 750 mg x1 Dosing Weight: Actual Target Trough: 15-20 A: Based on: WEIGHT, HD SCHEDULE, P: 1. GIVE VANCOMYCIN 750 MG IV X 1 THIS AFTERNOON THEN Vancomycin 500 mg IV AFTER HD WEDNESDAY, WEDNESDAY, WEDNESDAY 2. Follow up Random level NEEDED 3. Pharmacy will continue to monitor, follow and adjust therapy as needed. JOSE ALEJANDRO RODRIGUEZ [facility], 07/29/18 0902
--- NOTE | 2018-07-29 10:19 | PDOC ---
PULMONARY PROGRESS NOTES Subjective PT STILL WITH PLEURITIC PAIN NOT MORE SOA Vitals Vital Signs Date Time Temp Pulse Resp B/P (MAP) Pulse Ox O2 Delivery O2 Flow Rate FiO2 07/29/18 08:55 99 Room Air 07/29/18 07:00 97.8 93 18 109/70 (83) 97.8 ROS: No Nausea, No Chest Pain, No Abdominal Pain, No Increase Cough General: Alert Lungs: Clear, Other (DECREASE BS) Cardiovascular: S2 Abdomen: Soft Neuro Exam: Alert Extremities: No Edema Skin: Warm Labs Laboratory Tests Test 07/27/18 16:55 07/28/18 03:05 07/28/18 03:25 07/28/18 08:12 White Blood Count 8.4 x10^3/uL (4.0-11.0) Red Blood Count 3.05 x10^6/uL (3.50-5.40) Hemoglobin 9.5 g/dL (12.0-15.5) Hematocrit 29.6 % (36.0-47.0) Mean Corpuscular Volume 97 fL (79-100) Mean Corpuscular Hemoglobin 31 pg (25-35) Mean Corpuscular Hemoglobin Concent 32 g/dL (31-37) Red Cell Distribution Width 16.0 % (11.5-14.5) Platelet Count 259 x10^3/uL (140-400) Neutrophils (%) (Auto) 71 % (31-73) Lymphocytes (%) (Auto) 14 % (24-48) Monocytes (%) (Auto) 9 % (0-9) Eosinophils (%) (Auto) 6 % (0-3) Basophils (%) (Auto) 1 % (0-3) Neutrophils # (Auto) 5.9 x10^3uL (1.8-7.7) Lymphocytes # (Auto) 1.2 x10^3/uL (1.0-4.8) Monocytes # (Auto) 0.7 x10^3/uL (0.0-1.1) Eosinophils # (Auto) 0.5 x10^3/uL (0.0-0.7) Basophils # (Auto) 0.1 x10^3/uL (0.0-0.2) Prothrombin Time 15.2 SEC (11.7-14.0) Prothromb Time International Ratio 1.2 (0.8-1.1) D-Dimer (Darya) 5.04 ug/mlFEU (0.00-0.50) Sodium Level 134 mmol/L (136-145) Potassium Level 4.8 mmol/L (3.5-5.1) Chloride Level 94 mmol/L (98-107) Carbon Dioxide Level 25 mmol/L (21-32) Anion Gap 15 (6-14) Blood Urea Nitrogen 70 mg/dL (7-20) 71 mg/dL (7-20) Creatinine 12.1 mg/dL (0.6-1.0) 12.5 mg/dL (0.6-1.0) Estimated GFR (Cockcroft-Gault) 4.0 3.9 BUN/Creatinine Ratio 6 (6-20) Glucose Level 101 mg/dL (70-99) Lactic Acid Level 1.5 mmol/L (0.4-2.0) Calcium Level 8.9 mg/dL (8.5-10.1) Total Bilirubin 0.4 mg/dL (0.2-1.0) Aspartate Amino Transf (AST/SGOT) 21 U/L (15-37) Alanine Aminotransferase (ALT/SGPT) 9 U/L (14-59) Alkaline Phosphatase 364 U/L (46-116) Troponin I Quantitative < 0.017 ng/mL (0.000-0.055) Total Protein 8.5 g/dL (6.4-8.2) Albumin 2.8 g/dL (3.4-5.0) Albumin/Globulin Ratio 0.5 (1.0-1.7) Serum Test, Qualitative Negative (NEG) Triglycerides Level 98 mg/dL (0-150) Cholesterol Level 119 mg/dL (0-200) LDL Cholesterol, Calculated 63 mg/dL (0-100) VLDL Cholesterol, Calculated 20 mg/dL (0-40) Non-HDL Cholesterol Calculated 83 mg/dL (0-129) HDL Cholesterol 36 mg/dL (40-60) Cholesterol/HDL Ratio 3.3 Procalcitonin 3.09 ng/mL (0.00-0.10) Urine Collection Type Unknown Urine Color Yellow Urine Clarity Clear Urine pH 7.0 Urine Specific [place] 1.010 Urine Protein 30 mg/dL (NEG-TRACE) Urine Glucose (UA) Negative mg/dL (NEG) Urine Ketones (Stick) Negative mg/dL (NEG) Urine Blood Negative (NEG) Urine Nitrite Negative (NEG) Urine Bilirubin Negative (NEG) Urine Urobilinogen Dipstick 0.2 mg/dL (0.2 mg/dL) Urine Leukocyte Esterase Trace (NEG) Urine RBC 0 /HPF (0-2) Urine WBC 1-4 /HPF (0-4) Urine Squamous Epithelial Cells Many /LPF Urine Bacteria Few /HPF (0-FEW) Test 07/29/18 04:00 Sodium Level 138 mmol/L (136-145) Potassium Level 4.6 mmol/L (3.5-5.1) Chloride Level 98 mmol/L (98-107) Carbon Dioxide Level 27 mmol/L (21-32) Anion Gap 13 (6-14) Blood Urea Nitrogen 44 mg/dL (7-20) Creatinine 8.6 mg/dL (0.6-1.0) Estimated GFR (Cockcroft-Gault) 6.0 Glucose Level 76 mg/dL (70-99) Calcium Level 8.2 mg/dL (8.5-10.1) Phosphorus Level 6.0 mg/dL (2.6-4.7) Albumin 2.4 g/dL (3.4-5.0) Random Vancomycin Level 12.6 mcg/mL Laboratory Tests Test 07/29/18 04:00 Sodium Level 138 mmol/L (136-145) Potassium Level 4.6 mmol/L (3.5-5.1) Chloride Level 98 mmol/L (98-107) Carbon Dioxide Level 27 mmol/L (21-32) Anion Gap 13 (6-14) Blood Urea Nitrogen 44 mg/dL (7-20) Creatinine 8.6 mg/dL (0.6-1.0) Estimated GFR (Cockcroft-Gault) 6.0 Glucose Level 76 mg/dL (70-99) Calcium Level 8.2 mg/dL (8.5-10.1) Phosphorus Level 6.0 mg/dL (2.6-4.7) Albumin 2.4 g/dL (3.4-5.0) Random Vancomycin Level 12.6 mcg/mL Medications Active Scripts Medications Dose Route/Sig Max Daily Dose Days Date Category Dose Instructions Percocet 10-325 Mg Tablet (Oxycodone/Acetaminophen) 1 Each Tablet 1-2 Tab PO PRN Q4HRS PRN 14 07/21/18 Rx Aspirin 325 Mg Tablet 325 Mg PO DAILY MDD 325 mg 07/21/18 Rx Take on aspirin 325 mg daily for 30 days [Calcium Acetate] 667 MG Capsule 1,334 Mg PO TIDWMEALS 30 05/03/18 Rx Robina-Shea Rx Tablet (Vit B Cmplx 3/Fa/Vit C/Biotin) 1 Each Tablet 1 Each PO DAILY 05/01/18 Reported Vitamin D (Cholecalciferol (Vitamin D3)) 1,000 Unit Capsule 1 Cap PO DAILY 05/01/18 Reported Sensipar (Cinacalcet Hcl) 30 Mg Tablet 1 Tab PO DAILY 05/01/18 Reported Impression . IMPRESSION: 1. Progressive dyspnea, suspect secondary to pleurisy, possible pneumonia with pleurisy. 2. Abnormal chest x-ray revealed bilateral effusion with chronic changes. 3. Negative V/Q scan. 4. Negative venous Dopplers. 5. End-stage renal disease, on hemodialysis. 6. Status post quadriceps rupture repair. CT CHEST IMPRESSION: 1. Moderate streaky bibasilar atelectasis with small bilateral pleural effusions. 2. Chronic findings as described above. Plan . CT NOTED SOME CHRONIC CHANGES AIR BRONCHOGRAM IN BASES COMPATIBLE WITH PNEUMONIA D/W DR DURAND OK TO D/C FOLLOW UP WITH ME NEEDED NIA HOPSON MD Jul 29, 2018 10:19
[2018-07-29] MEDS ORDERED: LEVO500T59 PO (10:23)
[2018-07-29] MEDS ORDERED: TRAM50TA PO (10:23)
--- NOTE | 2018-07-29 12:02 | PDOC3 ---
Discharge Summary Visit Information Date of Admission: Jul 27, 2018 Date of Discharge: Jul 29, 2018 Admitting Diagnosis: Shortness of breath Final Diagnosis HCAP Brief Hospital Course Allergies Allergies Coded Allergies Type Severity Reaction Last Updated Verified No Known Drug Allergies 07/19/18 No Vital Signs Vital Signs Date Time Temp Pulse Resp B/P (MAP) Pulse Ox O2 Delivery O2 Flow Rate FiO2 07/29/18 08:55 99 Room Air 07/29/18 07:00 97.8 93 18 109/70 (83) 97.8 Lab Results Laboratory Tests Test 07/27/18 16:55 07/28/18 03:05 07/28/18 03:25 07/28/18 08:12 White Blood Count 8.4 x10^3/uL (4.0-11.0) Red Blood Count 3.05 x10^6/uL (3.50-5.40) Hemoglobin 9.5 g/dL (12.0-15.5) Hematocrit 29.6 % (36.0-47.0) Mean Corpuscular Volume 97 fL (79-100) Mean Corpuscular Hemoglobin 31 pg (25-35) Mean Corpuscular Hemoglobin Concent 32 g/dL (31-37) Red Cell Distribution Width 16.0 % (11.5-14.5) Platelet Count 259 x10^3/uL (140-400) Neutrophils (%) (Auto) 71 % (31-73) Lymphocytes (%) (Auto) 14 % (24-48) Monocytes (%) (Auto) 9 % (0-9) Eosinophils (%) (Auto) 6 % (0-3) Basophils (%) (Auto) 1 % (0-3) Neutrophils # (Auto) 5.9 x10^3uL (1.8-7.7) Lymphocytes # (Auto) 1.2 x10^3/uL (1.0-4.8) Monocytes # (Auto) 0.7 x10^3/uL (0.0-1.1) Eosinophils # (Auto) 0.5 x10^3/uL (0.0-0.7) Basophils # (Auto) 0.1 x10^3/uL (0.0-0.2) Prothrombin Time 15.2 SEC (11.7-14.0) Prothromb Time International Ratio 1.2 (0.8-1.1) D-Dimer (Darya) 5.04 ug/mlFEU (0.00-0.50) Sodium Level 134 mmol/L (136-145) Potassium Level 4.8 mmol/L (3.5-5.1) Chloride Level 94 mmol/L (98-107) Carbon Dioxide Level 25 mmol/L (21-32) Anion Gap 15 (6-14) Blood Urea Nitrogen 70 mg/dL (7-20) 71 mg/dL (7-20) Creatinine 12.1 mg/dL (0.6-1.0) 12.5 mg/dL (0.6-1.0) Estimated GFR (Cockcroft-Gault) 4.0 3.9 BUN/Creatinine Ratio 6 (6-20) Glucose Level 101 mg/dL (70-99) Lactic Acid Level 1.5 mmol/L (0.4-2.0) Calcium Level 8.9 mg/dL (8.5-10.1) Total Bilirubin 0.4 mg/dL (0.2-1.0) Aspartate Amino Transf (AST/SGOT) 21 U/L (15-37) Alanine Aminotransferase (ALT/SGPT) 9 U/L (14-59) Alkaline Phosphatase 364 U/L (46-116) Troponin I Quantitative < 0.017 ng/mL (0.000-0.055) Total Protein 8.5 g/dL (6.4-8.2) Albumin 2.8 g/dL (3.4-5.0) Albumin/Globulin Ratio 0.5 (1.0-1.7) Serum Test, Qualitative Negative (NEG) Triglycerides Level 98 mg/dL (0-150) Cholesterol Level 119 mg/dL (0-200) LDL Cholesterol, Calculated 63 mg/dL (0-100) VLDL Cholesterol, Calculated 20 mg/dL (0-40) Non-HDL Cholesterol Calculated 83 mg/dL (0-129) HDL Cholesterol 36 mg/dL (40-60) Cholesterol/HDL Ratio 3.3 Procalcitonin 3.09 ng/mL (0.00-0.10) Urine Collection Type Unknown Urine Color Yellow Urine Clarity Clear Urine pH 7.0 Urine Specific Arp 1.010 Urine Protein 30 mg/dL (NEG-TRACE) Urine Glucose (UA) Negative mg/dL (NEG) Urine Ketones (Stick) Negative mg/dL (NEG) Urine Blood Negative (NEG) Urine Nitrite Negative (NEG) Urine Bilirubin Negative (NEG) Urine Urobilinogen Dipstick 0.2 mg/dL (0.2 mg/dL) Urine Leukocyte Esterase Trace (NEG) Urine RBC 0 /HPF (0-2) Urine WBC 1-4 /HPF (0-4) Urine Squamous Epithelial Cells Many /LPF Urine Bacteria Few /HPF (0-FEW) Test 07/29/18 04:00 Sodium Level 138 mmol/L (136-145) Potassium Level 4.6 mmol/L (3.5-5.1) Chloride Level 98 mmol/L (98-107) Carbon Dioxide Level 27 mmol/L (21-32) Anion Gap 13 (6-14) Blood Urea Nitrogen 44 mg/dL (7-20) Creatinine 8.6 mg/dL (0.6-1.0) Estimated GFR (Cockcroft-Gault) 6.0 Glucose Level 76 mg/dL (70-99) Calcium Level 8.2 mg/dL (8.5-10.1) Phosphorus Level 6.0 mg/dL (2.6-4.7) Albumin 2.4 g/dL (3.4-5.0) Random Vancomycin Level 12.6 mcg/mL Laboratory Tests Test 07/29/18 04:00 Sodium Level 138 mmol/L (136-145) Potassium Level 4.6 mmol/L (3.5-5.1) Chloride Level 98 mmol/L (98-107) Carbon Dioxide Level 27 mmol/L (21-32) Anion Gap 13 (6-14) Blood Urea Nitrogen 44 mg/dL (7-20) Creatinine 8.6 mg/dL (0.6-1.0) Estimated GFR (Cockcroft-Gault) 6.0 Glucose Level 76 mg/dL (70-99) Calcium Level 8.2 mg/dL (8.5-10.1) Phosphorus Level 6.0 mg/dL (2.6-4.7) Albumin 2.4 g/dL (3.4-5.0) Random Vancomycin Level 12.6 mcg/mL Brief Hospital Course Ms Desai is a 48 year old AA female w/ PMHx ESRD (previously failed renal transplant 2010, then on PD in 2015, now on HD with 4 failed grafts in bilateral UE) who presents to ED with complaints of increased swelling and warmth to right leg, shortness of breath, and rapid heart beat x2 days. She also noted left axillary chest pain and tightness on deep inspiration. She states she had a torn ligament in her R knee repaired here by Dr. David on . She went to her PCP Dr. Sinha who sent her to the ER. Pt denies any body aches, chills, or cough. She reports that she feels fatigued all over. Currently, she rates the pain in her right knee a 5/10, the pain increases with movement or palpation. She has been taking the pain medication as prescribed and states it has helped with the pain. Pt states she has been ambulatory at home with a walker. She was started on heparin GTT for presumptive PE, unable to do CTPA due to no good IV access and hospital protocol prohibiting use of her dialysis catheter, so underwent VQ scan which was low probability with no mismatch Anderson better overnight after starting antibiotics and nebulizers. Seen with pulmonology, agreed this is pneumonia, likely to be atypical or gram negative pneumonia, most likely given she is a dialysis patient at high risk for HCAP will continue levaquin 500 mg after dialysis for the next week. Knee is stiff, swollen, painful. Almost no left chest wall pain and shortness of breath much better. Seen on dialysis today. Seen by judy etienne for f/u as scheduled and dialysis next session Wednesday A/P: Shortness of breath - low prob VQ, I will stop heparin GTT. Needs IS. will treat for her interstitial pattern on CXR as pneumonia for now, will need to consider pulm consultation Chest pain - this seems pleuritic, will change her pain meds for renal clearance to fentanyl and hydrocodone. D/c oxycodone and morphine orders. 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 Consult nephro H/o renal transplant - failed, not on immunosuppressants any longer Right knee swelling - expected post-op. Will call Dr. David to let him know his patient is in house for an unrelated issue. Cont PT Plan: Cont antibiotics. She is improving so much she can be discharged on levaquin today Greater than 30 minutes spent on discharge including coordination of follow up after d/c and dialysis coordination US RUE - 1. No significant stenosis or occlusion of the major right upper extremity arteries. 2. Occlusion of the right upper arm AV fistula. CT Chest - There is moderate atelectasis and consolidation in both lung bases. There is dominant involvement of the lower lobes and to a lesser degree the inferior lingula and right middle lobe. There is a small amount of associated pleural fluid. The upper lung murphy are clear. No interlobular septal thickening is seen. A right jugular dialysis type catheter extends into the superior aspect of the right atrium. The heart is not enlarged. There is mild calcific plaquing of the thoracic aorta minimal coronary artery calcification is present. Several small mediastinal lymph nodes are seen without definite pathologic enlargement. The upper end of a vascular stent is evident in the left subclavian vein region. The visualized portions of both kidneys are atrophic with several small cysts and calcifications noted. Sclerotic changes in the bones are compatible with renal osteodystrophy. There is also moderate multilevel degenerative disc disease. IMPRESSION: 1. Moderate streaky bibasilar atelectasis with small bilateral pleural effusions. 2. Chronic findings as described above. Discharge Information Condition at Discharge: Improved Follow Up: Weeks (2) Disposition/Orders: D/C to Home Scheduled Aspirin (Aspirin) 325 Mg Tablet, 325 MG PO DAILY for prevent blood clots MDD 325 mg, #30 Take on aspirin 325 mg daily for 30 days Prescribed by: REGAN DAVID MD on 07/21/18 1218 Last Action: Continued on 07/27/182105 by INDERJIT DURAND MD Cholecalciferol (Vitamin D3) (Vitamin D) 1,000 Unit Capsule, 1 CAP PO DAILY for supplement, #30 Ref 3 (Reported) Entered as Reported by: HECTOR GRANADOS on 05/01/182348 Last Action: Converted on 07/27/182105 by INDERJIT DURAND MD Cinacalcet Hcl (Sensipar) 30 Mg Tablet, 1 TAB PO DAILY for esrd, #30 Ref 11 ( Reported) Entered as Reported by: HECTOR GRANADOS on 05/01/182348 Last Action: Continued on 07/27/182105 by INDERJIT DURAND MD Levofloxacin (Levaquin) 500 Mg Tablet, 1 TAB PO QMWF for Pneumonia for 3 Days, # 3 Take every other day after dialysis for 3 total doses to treat pneumonia Prescribed by: INDERJIT DURAND MD on 07/29/18 1023 Vit B Cmplx 3/Fa/Vit C/Biotin (Robina-Shea Rx Tablet) 1 Each Tablet, 1 EACH PO DAILY for esrd, (Reported) Entered as Reported by: HECTOR GRANADOS on 05/01/18 3431 Last Action: Converted on 07/27/182105 by INDERJIT DURAND MD [Calcium Acetate] 667 MG CAPSULE, 1,334 MG PO TIDWMEALS for Hyperphosphatemia for 30 Days, #180 Prescribed by: INDERJIT DURAND MD on 05/03/18 0858 Last Action: Converted on 07/27/182105 by INDERJIT DURAND MD Scheduled PRN Tramadol Hcl (Tramadol Hcl) 50 Mg Tablet, 50 MG PO Q6HRS PRN for PAIN for 6 Days , #24 Prescribed by: INDERJIT DURAND MD on 07/29/18 1023 Discontinued Medications Oxycodone/Apap 10-325 (Percocet 10-325 Mg Tablet ) 1 Each Tablet, 1-2 TAB PO PRN Q4HRS PRN for PAIN for 14 Days, #80 Ref 0 Prescribed by: REGAN DAVID MD on 07/21/18 1218 Last Action: HELD on 07/27/182104 by MD KIZZY SMITH CHRISTOPHER S MD Jul 29, 2018 12:02
--- NOTE | 2018-07-29 12:57 | PDOC ---
SUBJECTIVE ROS Seen on HD, c/o mild headache OBJECTIVE Vital Signs Vital Signs Date Time Temp Pulse Resp B/P (MAP) Pulse Ox O2 Delivery O2 Flow Rate FiO2 07/29/18 08:55 99 Room Air 07/29/18 07:00 97.8 93 18 109/70 (83) 97.8 I & 0 Intake and Output 07/29/18 06:59 Intake Total 460 ml Balance 460 ml Intake Oral 460 ml # Voids 2 PHYSICAL EXAM Physical Exam General: NAD HEENT: PERRLA Neck Supple Lungs: Other (Bibasilar crackles) Heart: S1S2, RRR, no gallops, no murmurs Abdomen: Normal bowel sounds, Soft, No tenderness, No hepatosplenomegaly, No masses Extremities: No edema, Right knee swelling s/p surgery Skin: Right chest wall HD catheter clean) Neuro: Neuro Normal No miguel DIAGNOSIS/ASSESSMENT Assessment & Plan ESRD- On HD TTS Extra treatment today mainly for UF Sen on HD today, tolerating well 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 No significant stenosis or occlusion of the major right upper extremity arteries.2. Occlusion of the right upper arm AV fistula. Consult vascular (can schedule as OP) Recent Rt Knee surgery Shortness of breath - yoder as per primary Extra Tx tomorrow for UF Dw Pt and RN COMMENT/RELEVANT DATA Meds Current Medications Medications (Trade) Dose Ordered Sig/Tacos Start Time Stop Time Status Last Admin Dose Admin Acetaminophen (Tylenol) 500 mg 1X PRN PRN 07/29/18 08:45 07/30/18 08:44 Acetaminophen/ Hydrocodone Bitart (Lortab 7.5/325) 1 tab PRN Q6HRS PRN 07/27/18 21:15 07/29/18 07:43 1 TAB Albumin Human 200 ml @ 200 mls/hr 1X PRN PRN 07/29/18 08:45 07/29/18 14:44 Aspirin (Abdirahman Aspirin) 325 mg DAILY 07/28/18 09:00 07/29/18 08:28 325 MG Calcium Acetate (Phoslo) 1,334 mg TIDWMEALS 07/28/18 08:00 07/29/18 08:28 1,334 MG Cefepime HCl (Maxipime) 1 gm Q24H 07/27/18 22:30 07/28/18 22:12 1 GM Cinacalcet (Sensipar) 30 mg DAILY 07/28/18 09:00 07/29/18 08:28 30 MG Diphenhydramine HCl (Benadryl) 25 mg 1X PRN PRN 07/29/18 08:45 07/30/18 08:44 Fentanyl Citrate (Fentanyl 2ml Vial) 25 mcg PRN Q4HRS PRN 07/27/18 21:15 Furosemide (Lasix) 20 mg [id number] 07/29/18 09:00 Cancel Heparin Sodium (Porcine) (Heparin Sodium) 1,150 unit PRN Q6HRS PRN 07/27/18 19:15 07/27/18 22:12 DC Heparin Sodium/ Dextrose 500 ml @ 24.6 mls/hr CONT PRN 07/27/18 19:15 07/27/18 22:12 DC 07/27/18 19:43 24.6 MLS/HR Info (PHARMACY MONITORING -- do not chart) 1 each PRN DAILY PRN 07/29/18 08:45 Ketorolac Tromethamine (Toradol 15mg Vial) 15 mg PRN Q6HRS PRN 07/28/18 15:15 08/02/18 15:14 Levofloxacin/ Dextrose 150 ml @ 100 mls/hr 1X ONCE 07/29/18 11:00 07/29/18 12:29 DC Lisinopril (Prinivil) 10 mg DAILY 07/29/18 09:00 UNV Morphine Sulfate (Morphine Sulfate) 4 mg 1X ONCE 07/27/18 18:45 07/27/18 21:05 DC Ondansetron HCl (Zofran) 4 mg PRN Q6HRS PRN 07/28/18 12:30 07/28/18 12:32 4 MG Potassium Chloride (Klor-Con) 10 meq BID 07/28/18 21:00 UNV Sodium Chloride 1,000 ml @ 400 mls/hr Q2H30M PRN 07/29/18 08:38 07/29/18 20:37 Sodium Chloride (Normal Saline Flush) 10 ml 1X PRN PRN 07/29/18 08:45 07/30/18 08:44 Vancomycin HCl (Vanco Per Pharmacy) 1 each PRN DAILY PRN 07/27/18 22:15 07/29/18 08:59 1 EACH Vancomycin HCl (Vancomycin Random Level) 1 each 1X ONCE 07/29/18 06:00 07/29/18 06:01 DC 07/29/18 05:15 1 EACH Vancomycin HCl 500 mg/Sodium Chloride 100 ml @ 100 mls/hr QTUTHSA 07/30/18 16:00 Vancomycin HCl 750 mg/Sodium Chloride 250 ml @ 250 mls/hr ONCE ONCE 07/29/18 16:00 07/29/18 16:59 Vancomycin HCl 1 gm/Sodium Chloride 250 ml @ 250 mls/hr ONCE ONCE 07/27/18 22:30 07/27/18 23:29 DC 07/27/18 22:54 250 MLS/HR Vitamin B Complex/ Vitamin C (Robina-Shea) 1 tab DAILY 07/28/18 09:00 07/29/18 08:28 1 TAB Vitamin D (Vitamin D3) 1,000 unit DAILY 07/28/18 09:00 07/29/18 08:28 1,000 UNIT Lab Laboratory Tests Test 07/29/18 04:00 Sodium Level 138 mmol/L (136-145) Potassium Level 4.6 mmol/L (3.5-5.1) Chloride Level 98 mmol/L (98-107) Carbon Dioxide Level 27 mmol/L (21-32) Anion Gap 13 (6-14) Blood Urea Nitrogen 44 mg/dL (7-20) Creatinine 8.6 mg/dL (0.6-1.0) Estimated GFR (Cockcroft-Gault) 6.0 Glucose Level 76 mg/dL (70-99) Calcium Level 8.2 mg/dL (8.5-10.1) Phosphorus Level 6.0 mg/dL (2.6-4.7) Albumin 2.4 g/dL (3.4-5.0) Random Vancomycin Level 12.6 mcg/mL Results All relevant outside records, renal labs, imaging studies, telemetry/EKG's were reviewed. ROGELIO DENNY MD Jul 29, 2018 12:57
[2018-07-29 13:25] VITALS: BP 105/66
[2018-07-29] MEDS: ONDANSETRON PF 4 MG/2 ML VIAL. IV PRN (13:38)
[2018-07-29] MEDS ORDERED: traMADol 50 MG TABLET PO ONE (13:45)
[2018-07-29 15:40] VITALS: BP 112/65
--- NOTE | 2018-07-29 15:45 | CARD ---
MR#: [id number] Date of Study: 07/29/2018 Ordering Physician: HARVEY DURHAM, Referring Physician: INDERJIT DURAND, Tech: Yvonne Vega APPROVED REPORT EXAM: Two-dimensional and M-mode echocardiogram with Doppler and color Doppler. Other Information Quality : GoodHR: 96bpm Rhythm : NSR INDICATION Congestive Heart Failure 2D DIMENSIONS Left Atrium(2D)2.8 (1.6-4.0cm)IVSd1.9 (0.7-1.1cm) Aortic Root(2D)2.7 (2.0-3.7cm)LVDd2.0 (3.9-5.9cm) LVOT Diameter2.0 (1.8-2.4cm)PWd0.9 (0.7-1.1cm) LVDs2.5 (2.5-4.0cm)FS (%) 25.2 % SV23.7 ml Aortic Valve AoV Peak Delio.145.9cm/sAoV VTI16.7cm AO Peak GR.8.5mmHgLVOT VTI 17.51cm AO Mean GR.3mmHg Mitral Valve MV E Dhzadtzg84.9cm/sMV DECEL [id number] MV A Mviufzla13.4cm/sE/A Ratio1.1 TDI Lateral E' P. V12.81cm/sMedial E' P. V9.46cm/s E/Lateral E'4.8E/Medial E'6.4 Tricuspid Valve TR P. Jqhwobrf272pz/sRAP [id number] TR Peak Gr.10trHaCQXI20bsAv Pulmonary Vein S1 Sdspcole37.3cm/sS2 Mbawbdja08.51cm/s D2 Mqhqpsvx51.5cm/sPVa [id number] LEFT VENTRICLE The left ventricle is normal size. There is borderline concentric left ventricular hypertrophy. The l eft ventricular systolic function is normal and the ejection fraction is within normal range. The Eje ction Fraction is 55-60%. There is normal LV segmental wall motion. The left ventricular diastolic fu nction and filling is normal for age. RIGHT VENTRICLE The right ventricle is normal size. There is normal right ventricular wall thickness. The right ventr icular systolic function is normal. ATRIA The left atrium size is normal. The right atrium size is normal. The interatrial septum is intact wit h no evidence for an atrial septal defect or patent foramen ovale as noted on 2-D or Doppler imaging. AORTIC VALVE The aortic valve is normal in structure and function. Doppler and Color Flow revealed no significant aortic regurgitation. There is no significant aortic valvular stenosis. MITRAL VALVE The mitral valve is thickened but opens well. There is no evidence of mitral valve prolapse. There is no mitral valve stenosis. Doppler and Color-flow revealed trace mitral regurgitation. TRICUSPID VALVE The tricuspid valve is normal in structure and function. Doppler and Color Flow revealed trace tricus pid regurgitation. There is no tricuspid valve stenosis. PULMONIC VALVE The pulmonic valve is not well visualized. Doppler and Color Flow revealed no pulmonic valvular regur gitation. GREAT VESSELS The aortic root is normal in size. The IVC is normal in size and collapses >50% with inspiration. PERICARDIAL EFFUSION There is no evidence of significant pericardial effusion. Critical Notification Critical Value: No <Conclusion> The left ventricle is normal size. The left ventricular systolic function is normal and the ejection fraction is within normal range. The Ejection Fraction is 55-60%. There is borderline concentric left ventricular hypertrophy. There is no significant aortic valvular stenosis. Doppler and Color Flow revealed no significant aortic regurgitation. Doppler and Color-flow revealed trace mitral regurgitation. Doppler and Color Flow revealed trace tricuspid regurgitation. Signed by : Ebenezer Benitez MD Electronically Approved : 07/29/2018 15:44:59
[2018-07-29] MEDS ORDERED: VANCOMYCIN 750 MG in IV NORMAL SALINE 250ML 250 ML IV ONE (16:00)
--- NOTE | 2018-07-29 17:05 | NUR ---
Discharge Note: MARIANN LONG Discharge instructions and discharge home medications reviewed with Patient and a copy given. All questions have been answered and understanding verbalized.
[2018-07-30] MEDS ORDERED: VANCOMYCIN 500 MG in IV NORMAL SALINE 100ML 100 ML IV SCH (16:00)
== END 2018-07-29 17:09 | disposition home or self-care (01) | DRG 177 ==
LOC: ER 15:57 → 2 SOUTH 19:27
PROVIDERS: ADMIT Internal Medicine; ATTEND Internal Medicine
PROC: 5A1D70Z Performance of Urinary Filtration, Intermittent, Less than 6 Hours Per Day (ICD-10-PCS; principal; 2018-07-28)
PROC: 5A1D70Z Performance of Urinary Filtration, Intermittent, Less than 6 Hours Per Day (ICD-10-PCS; 2018-07-29)
DX: J15.6 Pneumonia due to other Gram-negative bacteria (principal); N18.6 End stage renal disease; I12.0 Hypertensive chronic kidney disease with stage 5 chronic kidney disease or end stage renal disease; E05.90 Thyrotoxicosis, unspecified without thyrotoxic crisis or storm; F41.9 Anxiety disorder, unspecified; E83.39 Other disorders of phosphorus metabolism; Y95 Nosocomial condition; Z82.49 Family history of ischemic heart disease and other diseases of the circulatory system; Z79.899 Other long term (current) drug therapy; Z99.2 Dependence on renal dialysis
CPT/HCPCS: 36415; 71045; 71250; 78582; 80053; 80061; 80069; 80202; 81001; 82565; 83605; 84145; 84484; 84520; 84703; 85025; 85379; 85610; 87040; 87086; 93005; 93306; 93931; 93971; 96365; 96366; 96374; 96375; 96376; A9540; A9558; J0692; J1644; J1956; J2270; J2405; J3370; J7050; 97140; 99285-25; J7030

== ENCOUNTER → 2020-09-14 | Outpatient (CLI) | payer MEDICARE, BC ==
[~2020-09-14] MED LIST changes: -CINA30TA2 PO; +CINA30TA24 PO; +LEVO500T59 PO; +TRAM50TA PO
== END ==
LOC: LAB 11:39
PROVIDERS: ATTEND Internal Medicine Nephrology
DX: N18.9 Chronic kidney disease, unspecified (principal); Z99.2 Dependence on renal dialysis
CPT/HCPCS: 36415; 84132

== ENCOUNTER 2020-09-19 18:08 | Emergency (ER) | payer MEDICARE, BC ==
[~2020-09-19] VITALS: Ht 175.3 cm; Wt 69.5 kg
--- NOTE | 2020-09-19 19:21 | EKG ---
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
--- NOTE | 2020-09-19 19:37 | ED.ADGEN ---
Past Medical History Past Medical History: Anxiety, Hypertension, Renal Failure, Other Additional Past Medical Histor: PERITONEAL DIALYSIS until 2017 Past Surgical History: Other Additional Past Surgical Histo: Peritoneal dialysis catheter, chest dialysis catheter Smoking Status: Never Smoker Alcohol Use: None Drug Use: None General Adult EDM: Chief Complaint: ABNORMAL LABS HPI: HPI: Patient is a 50-year-old female with past medical history of end-stage renal disease who presents to the emergency room after being sent here by Juan for hypocalcemia. Patient states that she is taking calcium and is not taking as much as she is supposed to be because it is too many pills. She denies any kind of symptoms. She denies any cramping, seizures, confusion, chest pain, shortness of breath. She states that she feels normal and is just here to get some calcium replacement and would like to go home. Review of Systems: Review of Systems: Complete ROS is negative unless otherwise documented in HPI Current Medications: Current Medications Medications (Trade) Dose Ordered Sig/Tacos Start Time Stop Time Status Last Admin Dose Admin Calcium Gluconate (Calcium Gluconate) 1,000 mg 1X ONCE 09/19/20 20:00 09/19/20 20:01 DC 09/19/20 20:28 1,000 MG Vitamin D (Vitamin D3) 1,000 unit 1X ONCE 09/19/20 21:00 09/19/20 21:01 DC 09/19/20 20:47 1,000 UNIT Allergies: Allergies: Allergies Coded Allergies Type Severity Reaction Last Updated Verified No Known Drug Allergies 07/19/18 No Physical Exam: PE: General: Awake, alert, NAD. Well Nourished, well hydrated. Cooperative HEENT: Atraumatic, EOMI, PERRL, airway patent, moist oral mucosa Neck: Supple, trachea midline Respiratory: CTA bilaterally, normal effort, no wheezing/crackles, port in right chest CV: RRR, no murmur, cap refill <2 GI: Soft, nondistended, nontender, no masses MSK: No obvious deformities Skin: Warm, dry, intact Neuro: A&O x3, speech NL, sensory and motor grossly intact, no focal deficits Psych: Normal affect, normal mood, not suicidal or homicidal Current Patient Data: Labs: Laboratory Tests Test 09/19/20 19:19 Sodium Level 136 mmol/L (136-145) Potassium Level 4.4 mmol/L (3.5-5.1) Chloride Level 98 mmol/L (98-107) Carbon Dioxide Level 25 mmol/L (21-32) Anion Gap 13 (6-14) Blood Urea Nitrogen 52 mg/dL (7-20) H Creatinine 8.7 mg/dL (0.6-1.0) H Estimated GFR (Cockcroft-Gault) 5.8 Glucose Level 92 mg/dL (70-99) Calcium Level 7.3 mg/dL (8.5-10.1) L Ionized Calcium 0.79 mmol/L (1.13-1.32) L Magnesium Level 2.7 mg/dL (1.8-2.4) H Laboratory Tests 09/19/20 19:19 Vital Signs: Vital Signs Date Time Temp Pulse Resp B/P (MAP) Pulse Ox O2 Delivery O2 Flow Rate FiO2 09/19/20 21:18 100 16 98/58 (71) 95 Room Air 09/19/20 18:32 98.9 98.9 EKG: EKG: [] Heart Score: C/O Chest Pain: N/A Risk Factors: Risk Factors: DM, Current or recent (<one month) smoker, HTN, HLP, family history of CAD, obesity. Risk Scores: Score 0 - 3: 2.5% MACE over next 6 weeks - Discharge Home Score 4 - 6: 20.3% MACE over next 6 weeks - Admit for Clinical Observation Score 7 - 10: 72.7% MACE over next 6 weeks - Early Invasive Strategies Radiology/Procedures: Radiology/Procedures: [] Course & Med Decision Making: Course & Med Decision Making Pertinent Labs and Imaging studies reviewed. (See chart for details) Patient is a 50-year-old female presents to the emergency room complaining of possible hypocalcemia. BMP, ionized calcium, magnesium levels were drawn. P atient is asymptomatic. She does not have any signs of hypocalcemia on exam or EKG. calcium is low at this time. Patient was given calcium gluconate and vitamin D. She will continue to take calcium at home. She will recheck with her primary care physician early next week. She will return to the emergency room if she becomes symptomatic. Patient's test results and vitals while in the ED were fully reviewed and discussed with the patient. Patient is stable and at this time does not need admission to the hospital. We have discussed strict return precautions and the importance of following up with their Primary Care Physician. Patient stated understanding and was given an opportunity to ask any questions. Patient is in agreement with plan. Dragon Disclaimer: Dragon Disclaimer: This electronic medical record was generated, in whole or in part, using a voice recognition dictation system. Departure Departure Impression: Primary Impression: Hypocalcemia Disposition: HOME / SELF CARE / HOMELESS Condition: STABLE Referrals: RAQUEL CRUZ MD (PCP) Patient Instructions: Hypocalcemia, Adult COLBY MUNIZ MD Sep 19, 2020 19:37
[2020-09-19 19:45] LABS: CALCIUM 7.3 mg/dL (8.5-10.1); CREATININE 8.7 mg/dL (0.6-1.0); GFR 5.8; POTASSIUM 4.4 mmol/L (3.5-5.1)
[2020-09-19] MEDS ORDERED: CHOLECALCIFEROL (VITAMIN D3) 1,000 UNIT TABLET PO SCH (20:00)
[2020-09-19] MEDS ORDERED: CALCIUM GLUCONATE 1,000 MG/10 ML VIAL. IVP ONE (20:00)
[2020-09-19] MEDS ORDERED: CHOLECALCIFEROL (VITAMIN D3) 1,000 UNIT TABLET PO ONE (21:00)
[2020-09-19 21:18] VITALS: BP 98/58
== END 2020-09-19 21:45 | disposition home or self-care (01) ==
LOC: ER 18:08
DX: E83.51 Hypocalcemia (principal); I12.0 Hypertensive chronic kidney disease with stage 5 chronic kidney disease or end stage renal disease; N18.6 End stage renal disease; Z99.2 Dependence on renal dialysis
CPT/HCPCS: 36415; 80048; 82310; 83735; 93005; 96374; 99284; J0610

== ENCOUNTER 2020-10-25 07:13 | Outpatient (CLI) | payer MEDICARE, BC ==
[~2020-10-25] VITALS: Ht 175.3 cm; Wt 70.0 kg
[2020-10-25] MEDS ORDERED: LIDOCAINE 1%/EPI 1:100,000 20 ML VIAL. ONE (07:45)
[2020-10-25 08:01] LABS: BASO # 0.1 x10^3/uL (0.0-0.2); BASO % 1 % (0-3); EOS % 16 % (0-3); HEMOGLOBIN 10.5 g/dL (12.0-15.5); LYMPH # 1.9 x10^3/uL (1.0-4.8); LYMPH % 29 % (24-48); MEAN CORPUSCULAR HEMOGLOBIN 29 pg (25-35); MEAN CORPUSCULAR HGB CONC 32 g/dL (31-37); MEAN CORPUSCULAR VOLUME 92 fL (79-100); MONO # 0.7 x10^3/uL (0.0-1.1); MONO % 10 % (0-9); NEUT % 45 % (31-73); PLATELET COUNT 225 x10^3/uL (140-400); RED BLOOD COUNT 3.59 x10^6/uL (3.50-5.40); WHITE BLOOD COUNT 6.7 x10^3/uL (4.0-11.0)
[2020-10-25 08:13] LABS: PROTHROMBIN TIME PATIENT 12.7 SEC (11.7-14.0)
[2020-10-25 08:14] VITALS: BP 99/64
[2020-10-25] MEDS ORDERED: fentaNYL PF VIAL 100 MCG/2 ML VIAL ONE (08:32)
[2020-10-25] MEDS ORDERED: MIDAZOLAM HCL/PF 2 MG/2 ML VIAL. ONE (08:32)
[2020-10-25] MEDS ORDERED: fentaNYL PF VIAL 100 MCG/2 ML VIAL IV ONE (09:00)
[2020-10-25] MEDS ORDERED: LIDOCAINE 1%/EPI 1:100,000 20 ML VIAL. INJ ONE (09:00)
[2020-10-25] MEDS ORDERED: MIDAZOLAM HCL/PF 2 MG/2 ML VIAL. IV ONE (09:00)
[2020-10-25 09:02] VITALS: BP 100/58
--- NOTE | 2020-10-25 09:06 | PDOC ---
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
[2020-10-25 09:15] VITALS: BP 108/66
[2020-10-25 09:30] VITALS: BP 101/64
[2020-10-25 09:45] VITALS: BP 97/64
[2020-10-25 10:00] VITALS: BP 96/67
--- NOTE | 2020-10-25 10:15 | NUR ---
pt A&O x4 . states her rt chest dialysis catheter feels much better and is just sore now. VSS. tolerating po well. no bleeding from HD cath site. ambulated w/o problem. d/c instructions given and questions answered. out to vehicle per w/c. family to drive her home
--- NOTE | 2020-10-25 15:35 | RAD ---
Replacement of right internal jugular tunneled hemodialysis catheter 10/25/2020 INDICATION: Nonfunctional catheter Consent: The procedure was explained in its entirety to the patient or the patients designated repres entative by a member of the treatment team, including a discussion of the risks, benefits and commonl y accepted alternatives to the procedure, as well as the expected consequences of no therapy whatsoev er. Discussion of the risks included, but was not limited to, those that are most frequent and thos e that are rare but possibly severe or life-threatening, as well as the possibility of unforeseen com plications. Discussion: A timeout procedure was performed. The right chest including the preexisting catheter was prepped and draped using sterile barrier technique. 1% lidocaine was administered for local anesthes ia. A guidewire was advanced into the IVC through the pre-existing catheter. The catheter was removed over this wire and replaced with a 19 cm tip to cuff palindrome tunneled dialysis catheter. The cath eter was secured in place. New catheters flush and aspirate normally. No immediate complications were identified. The procedure was performed under conscious sedation including continuous cardiopulmonary monitoring via a dedicated sedation nurse. [id number] sedation time: 17 minutes Total fluoroscopy time: 1 minute Dose area product 2 Gycm2 IMPRESSION: Replacement of right internal jugular tunnel hemodialysis catheter. Electronically signed by: Johnny Wu MD (10/25/2020 3:32 PM) [id number]
== END 2020-10-25 10:20 | disposition home or self-care (01) ==
LOC: INTRAD 07:13
PROVIDERS: ATTEND Internal Medicine Nephrology
DX: I12.0 Hypertensive chronic kidney disease with stage 5 chronic kidney disease or end stage renal disease (principal); N18.6 End stage renal disease; T85.618A Breakdown (mechanical) of other specified internal prosthetic devices, implants and grafts, initial encounter; K21.9 Gastro-esophageal reflux disease without esophagitis; Z99.2 Dependence on renal dialysis; Z79.899 Other long term (current) drug therapy; Z98.890 Other specified postprocedural states; X58.XXXA Exposure to other specified factors, initial encounter; Y93.89 Activity, other specified; Y92.89 Other specified places as the place of occurrence of the external cause; Y99.8 Other external cause status
CPT/HCPCS: 36415; 36581; 77001; 85025; 85610; 99152; C1750; C1769; J2250; J3010; J3490